=== PATIENT | male | born 1960 | race Caucasian/White ===

== ENCOUNTER 2018-01-06 12:31 | Inpatient (IN) | payer MEDICAID, OTHER ==
[~2018-01-06] VITALS: Ht 170.2 cm; Wt 41.7 kg
[2018-01-06 13:00] VITALS: BP 144/88
[2018-01-06] MEDS ORDERED: ENOXAPARIN 40 MG/0.4 ML (LOVENOX) SYR SC SCH (13:00)
--- NOTE | 2018-01-06 14:02 | Occupational Therapy Eval ---
OT Evaluation-General/PLF Medical Diagnosis Admission Date Jan 06, 2018 at 12:31 Medical Diagnosis: R hemiarthroplasty, R humeral fx Onset Date: Dec 27, 2017 Therapy Diagnosis Therapy Diagnosis: decr self care, weakness, decr funct mob, decr act gwen Height/Weight Height (Feet): 5 Height (Inches): 7.00 Weight (Pounds): 98 Weight (Ounces): 0.4 Precautions Precautions/Isolations: Fall Prevention, Standard Precautions, Pressure Ulcer Weight Bear Status Weight Bearing Restriction: Weight Bearing/Tolerated (R LE), Non Weight Bearing (R UE) Sling for R UE. Posterior hip precautions Medical History Pertinent Medical History: CAD, HTN Additional Medical History L FEDE in May 2017. Mother reported that he had a stroke at that time but he does not think that he has any residual effects (unclear which side was affected ). 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 Chemotherapy. Tachycardia. Malnutrition. Thrush Current History Pt fell, landing on R side. had R FEDE on 12-30-17. Pathological fx R humerus, with no weight bearing. R arm in sling. Reviewed History: Yes Social History Home: Single Level Current Living Status: Other Family (Will stay with mother and stepfather) Entry Into Home: Stairs Without Railing Steps Into Home: 1 ADL-Prior Level of Function Functional [place] Measure 0=Not Assessed/NA 4=Minimal Assistance 1=Total Assistance 5=Supervision or Setup 2=Maximal Assistance 6=Modified [place] 3=Moderate Assistance 7=Complete [place] ADL PLOF Comments Pt reported that he was able to manage his basic ADLs prior to his fall. He lived alone and cared for his pets, his home, worked until he couldn't due to cancer. 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 He said that he "hangs around" with his family and sometimes stays with his mom. He is planning on going to her home after discharge Self Care Functional Cognition Functional Cognition: Able to manage shopping, home care, work, drove DME/Equipment: Shower Hose [employer] Management Keyholder, Tub/Shower DME/Equipment Comments At his mother's house Occupation: disabled OT Current Status Subjective Pt seen in room, up in recliner, agreeable to OT. Pain reported 7/10 in back. Appearance Alert, cooperative Mental Status/Objective Patient Orientation: Person, Place, Situation Current Glasses/Contacts: Yes Hearing Aids: No Dentures/Partials: Yes (upper) Hand Dominance: Right Upper Extremity ROM L UE grossly WFL. R UE grossly WFL elbow, forearm, wrist, hand Upper Extremity Strength R UE grossly 4/5. R UE not tested but field recorder is weaker than L ADL-Treatment ADL-Current Pt education on rehab expectations. He would prefer to wait until tomorrow to bathe and dress. Bathroom set up with BS over toilet because a taller toilet would still be too low to follow hip precautions. He was able to generally verbalize hip precautions, especially since he had them with his FEDE in May. Functional [place] Measure 0=Not Assessed/NA 4=Minimal Assistance 1=Total Assistance 5=Supervision or Setup 2=Maximal Assistance 6=Modified [place] 3=Moderate Assistance 7=Complete IndependenceIRFPAI Quality Coding Scale 6 Independent with activity with or without an assistive device 5 Patient requires set up or clean up by helper. Patient completes activity by themselves 4 Supervision or touching assist (CGA). [place] provide cues , steadying assist 3 The helper provides less than half the effort to complete the activity 2 The helper provides more than half the effort to complete the activity 1 Dependent. The helper does all the effort to complete an activity 7 Patient refused to complete or attempt activity 9 The patient did not perform the activity before the current illness or injury 88 Not attempted due to Medical conditions or safety concerns Education OT Patient Education: Purpose of tx/functional activities, Reviewed precautions , Rehab process, Safety issues Teaching Recipient: Patient, Family Teaching Methods: Discussion Response to Teaching: Verbalize Understanding, Reinforcement Needed OT Short Term Goals Short Term Goals Eating(FIM): 6 Additional Short Term Goals: 1-Demonstrate ADL Tasks, 2-Verbalize Understanding , 3-ImproveStrength/Gianfranco 1=Demonstrate adherence to instructed precautions during ADL tasks. 2=Patient will verbalize/demonstrate understanding of assistive devices/ modifications for ADL. 3=Patient will improve strength/tolerance for activity to enable patient to perform ADL's. OT Ward Maid Goals Ward Maid Goals Time Frame: Jan 27, 2018 Eating (FIM): 6 Eating (QC): 6 Groomin Oral Hygiene (QC): 6 Bathing(FIM): 5 Shower/Bathe Self (QC): 5 Upper Body Dressing(FIM): 6 Upper Body Dressing (QC): 6 Lower Body Dressing(FIM): 5 Lower Body Dressing (QC): 5 On/Off Footwear (QC): 5 Toileting(FIM): 6 Toileting Hygiene (QC): 6 Toilet/Commode Transfer(FIM): 6 Toilet/Commode Transfer (QC): 6 Tub Transfer(FIM): 5 (or shower) Shower Transfer(FIM): 5 Additional Goals: 1-Demonstrate ADL Tasks, 2-Verbalize Understanding, 3- ImproveStrength/Gianfranco 1=Demonstrate adherence to instructed precautions during ADL tasks. 2=Patient will verbalize/demonstrate understanding of assistive devices/ modifications for ADL. 3=Patient will improve strength/tolerance for activity to enable patient to perform ADL's. OT Education/Plan Problem List/Assessment Assessment: Decreased Activ Tolerance, Decreased UE Strength, Dependent Transfers, Impaired Self-Care Skills, Restricted Funct UE ROM Pt would benefit from skilled OT to increase his independence in basic self car to allow him to safely return to his mother's home after discharge, with prison goal to return to his own home. Discharge Recommendations Plan/Recommendations: Continue POC Treatment Plan/Plan of Care Treatment,Training & Education: Yes Patient would benefit from OT for education, treatment and training to promote independence in ADL's, mobility, safety and/or upper extremity function for ADL' s. Plan of Care: ADL Retraining, Functional Mobility, Group Exercise/Act as Ind ( educaiton, exercise, activity tolerance, functional activities, socialization), UE Funct Exercise/Act, UE Neuromus Re-Ed/Coord, OTHER (energy conservation educaton) Treatment Duration: Jan 27, 2018 Frequency: Modified Program (IRF) Estimated Hrs Per Day: 1.5 hours per day Agreement: Yes Rehab Potential: Fair Time/GCodes Start Time: 12:35 Stop Time: 13:00 Total Time Billed (hr/min): 25 Billed Treatment Time visit, evaluation moderate intensity ROSSI KAUFMAN OT Jan 06, 2018 14:02
--- NOTE | 2018-01-06 14:03 | Occupational Ther Daily Note ---
OT Current Status-Daily Note Subjective Pt seen in room, up in recliner, agreeable to OT No pain mentioned Appearance Alert, cooperative Mental Status/Objective Functional [place] Measure 0=Not Assessed/NA 4=Minimal Assistance 1=Total Assistance 5=Supervision or Setup 2=Maximal Assistance 6=Modified [place] 3=Moderate Assistance 7=Complete [place] ADL-Treatment Pt was able to open some containers but needed help opening others. Difficulty reaching food with both hands when food placed on bedside table and cutting food with one hand. Pt given lower folding table which allowed him to reach his food with R hand as well as L and to be more independent with feeding himself. Pt left up in recliner to finish eating, all needs met. He self reported that he eats slowly. Has dentures Functional [place] Measure 0=Not Assessed/NA 4=Minimal Assistance 1=Total Assistance 5=Supervision or Setup 2=Maximal Assistance 6=Modified [place] 3=Moderate Assistance 7=Complete IndependenceIRFPAI Quality Coding Scale 6 Independent with activity with or without an assistive device 5 Patient requires set up or clean up by helper. Patient completes activity by themselves 4 Supervision or touching assist (CGA). [place] provide cues , steadying assist 3 The helper provides less than half the effort to complete the activity 2 The helper provides more than half the effort to complete the activity 1 Dependent. The helper does all the effort to complete an activity 7 Patient refused to complete or attempt activity 9 The patient did not perform the activity before the current illness or injury 88 Not attempted due to Medical conditions or safety concerns Eating (FIM): 5 (setup. Some difficulty cutting food, reaching items. Dentures) Eating (QC): 5 (setup) Education OT Patient Education: Modified ADL techniques, Progress toward Goal/Update tx plan, Purpose of tx/functional activities, Use of adapted equipment Teaching Recipient: Patient, Family Teaching Methods: Demonstration, Discussion Response to Teaching: Verbalize Understanding, Return Demonstration OT Short Term Goals Short Term Goals 1=Demonstrate adherence to instructed precautions during ADL tasks. 2=Patient will verbalize/demonstrate understanding of assistive devices/ modifications for ADL. 3=Patient will improve strength/tolerance for activity to enable patient to perform ADL's. OT Pick Pulling Machine Tender Goals Residential Goals 1=Demonstrate adherence to instructed precautions during ADL tasks. 2=Patient will verbalize/demonstrate understanding of assistive devices/ modifications for ADL. 3=Patient will improve strength/tolerance for activity to enable patient to perform ADL's. OT Education/Plan Discharge Recommendations Plan/Recommendations: Continue POC Treatment Plan/Plan of Care Patient would benefit from OT for education, treatment and training to promote independence in ADL's, mobility, safety and/or upper extremity function for ADL' s. Treatment Duration: Jan 27, 2018 Frequency: Modified Program (IRF) Estimated Hrs Per Day: 1.5 hours per day Agreement: Yes Rehab Potential: Fair Time/GCodes Start Time: 13:20 Stop Time: 13:40 Total Time Billed (hr/min): 20 Billed Treatment Time visit, 20 minutes ADL ROSSI KAUFMAN OT Jan 06, 2018 14:03
[2018-01-06] MEDS ORDERED: OXYC-465 PO (14:33)
[2018-01-06] MEDS ORDERED: MORP-34 PO (14:33)
--- NOTE | 2018-01-06 14:45 | Occupational Ther Daily Note ---
OT Current Status-Daily Note Subjective Pt seen in room, up in recliner, agreeable to OT. No pain mentioned. Pt did report that he is tired and already had therapy this morning. Appearance Alert, cooperative Mental Status/Objective Functional [place] Measure 0=Not Assessed/NA 4=Minimal Assistance 1=Total Assistance 5=Supervision or Setup 2=Maximal Assistance 6=Modified [place] 3=Moderate Assistance 7=Complete [place] ADL-Treatment Pt declined need to toilet and discussed that he used FWW for walking in acute care. He was confident that he could walk to bathroom but did not attempt. Recliner in room replaced with electric lift chair so that he can operate controls and elevate his legs because lever arm is on the right side of standard recliner and he cannot reach it due to R arm in sling and NWB. Pt did 20 reps squeezes and 20 pinches bilat UEs with pink foam paste worker (moderate resistance). Also did 15 reps AROM R wrist, forearm and elbow to prevent contractures. Care transferred to PT. Functional [place] Measure 0=Not Assessed/NA 4=Minimal Assistance 1=Total Assistance 5=Supervision or Setup 2=Maximal Assistance 6=Modified [place] 3=Moderate Assistance 7=Complete IndependenceIRFPAI Quality Coding Scale 6 Independent with activity with or without an assistive device 5 Patient requires set up or clean up by helper. Patient completes activity by themselves 4 Supervision or touching assist (CGA). [place] provide cues , steadying assist 3 The helper provides less than half the effort to complete the activity 2 The helper provides more than half the effort to complete the activity 1 Dependent. The helper does all the effort to complete an activity 7 Patient refused to complete or attempt activity 9 The patient did not perform the activity before the current illness or injury 88 Not attempted due to Medical conditions or safety concerns Education OT Patient Education: Exercise program, Modified ADL techniques, Purpose of tx/ functional activities Teaching Recipient: Patient Teaching Methods: Demonstration, Discussion Response to Teaching: Verbalize Understanding, Return Demonstration, Reinforcement Needed OT Short Term Goals Short Term Goals 1=Demonstrate adherence to instructed precautions during ADL tasks. 2=Patient will verbalize/demonstrate understanding of assistive devices/ modifications for ADL. 3=Patient will improve strength/tolerance for activity to enable patient to perform ADL's. OT Usp Goals Usp Goals 1=Demonstrate adherence to instructed precautions during ADL tasks. 2=Patient will verbalize/demonstrate understanding of assistive devices/ modifications for ADL. 3=Patient will improve strength/tolerance for activity to enable patient to perform ADL's. OT Education/Plan Discharge Recommendations Plan/Recommendations: Continue POC Treatment Plan/Plan of Care Patient would benefit from OT for education, treatment and training to promote independence in ADL's, mobility, safety and/or upper extremity function for ADL' s. Treatment Duration: Jan 27, 2018 Frequency: Modified Program (IRF) Estimated Hrs Per Day: 1.5 hours per day Agreement: Yes Rehab Potential: Fair Time/GCodes Start Time: 14:05 Stop Time: 14:35 Total Time Billed (hr/min): 30 Billed Treatment Time visit, 10 minutes ADL, 20 minutes exercise ROSSI KAUFMAN OT Jan 06, 2018 14:45
--- NOTE | 2018-01-06 15:19 | Physical Therapy Evaluation ---
PT Evaluation-General Medical Diagnosis Admission Date Jan 06, 2018 at 12:31 Medical Diagnosis: right hip and humeral fracture Onset Date: Dec 30, 2017 Therapy Diagnosis Therapy Diagnosis: generalized weakness/debility Height/Weight Height (Feet): 5 Height (Inches): 7.00 Weight (Pounds): 98 Weight (Ounces): 0.4 Precautions Precautions/Isolations: Fall Prevention, Standard Precautions, Pressure Ulcer Weight Bear Status Right Lower Extremity: Right Weight Bearing/Tolerated Left Lower Extremity: Left Weight Bearing/Tolerated Non wt bearing RU LIMB Referral Physician: Darrin Reason for Referral: Evaluation/Treatment Medical History Pertinent Medical History: CAD, HTN, Smoking Additional Medical History metastatic cancer to bone with primary laryngeal mass, lung; increase fatigue, weight loss Current History fall resulting in right hip fracture and humeral fracture (right hip arthroplasty WBAT; right humeral fracture NWB) Reviewed History: Yes Social History Home: Single Level Current Living Status: Alone Prior/Core FIM Prior Level of Function Functional [place] Measure 0=Not Assessed/NA 4=Minimal Assistance 1=Total Assistance 5=Supervision or Setup 2=Maximal Assistance 6=Modified [place] 3=Moderate Assistance 7=Complete IndependenceIRFPAI Quality Coding Scale 6 Independent with activity with or without an assistive device 5 Patient requires set up or clean up by helper. Patient completes activity by themselves 4 Supervision or touching assist (CGA). [place] provide cues , steadying assist 3 The helper provides less than half the effort to complete the activity 2 The helper provides more than half the effort to complete the activity 1 Dependent. The helper does all the effort to complete an activity 7 Patient refused to complete or attempt activity 9 The patient did not perform the activity before the current illness or injury 88 Not attempted due to Medical conditions or safety concerns Bed Mobility: 7 Transfers (B,C,W/C) (FIM): 7 Gait: 7 Prior Equipment Used: lives independently PT Evaluation-Current Subjective Patient reports fatigue and agrees to PT, however, did limit due to pain and fatigue. Pain Numeric Pain Scale: 5-Moderate Pain Location: Right Location Body Site: Hip Pain Description: Acute Objective Patient Orientation: Normal For Age Problem Solving: Fair ROM/Strength ROM Lower Extremities right hip precautions/left LE WFL Strenght Lower Extremities right Le 3-/5 grossly; left LE 3+/5 grossly Integumentary/Posture Integumentary refer to nursing notes Bowel Incontinence: No Bladder Incontinence: No Posture scoliosis Neuromuscular (Tone, Coordination, Reflexes) diminished coordination due to weakness Sensory Vision: Wears Glasses Hearing: Functional Sensation Right Lower Extremit: Impaired Sensation Left Lower Extremity: Impaired Transfers Functional [place] Measure 0=Not Assessed/NA 4=Minimal Assistance 1=Total Assistance 5=Supervision or Setup 2=Maximal Assistance 6=Modified [place] 3=Moderate Assistance 7=Complete IndependenceIRFPAI Quality Coding Scale 6 Independent with activity with or without an assistive device 5 Patient requires set up or clean up by helper. Patient completes activity by themselves 4 Supervision or touching assist (CGA). [place] provide cues , steadying assist 3 The helper provides less than half the effort to complete the activity 2 The helper provides more than half the effort to complete the activity 1 Dependent. The helper does all the effort to complete an activity 7 Patient refused to complete or attempt activity 9 The patient did not perform the activity before the current illness or injury 88 Not attempted due to Medical conditions or safety concerns Transfers (B, C, W/C) (FIM): 3 Scootin Rollin Roll Left to Right (QC): 3 Supine to/from Sit: 3 Sit to/from Stand: 3 bed t/f WC(FIM only if WC use): 3 Sit to Lying (QC): 3 Lying to Sitting/Side of Bed(Q: 3 Sit to Stand (QC): 3 Chair/Fyj-oq-Lhqci Xfer(QC): 3 Car Transfer (QC): 3 Gait Does the Patient Walk?: Yes Mode of Locomotion: Both Anticipated Mode of Locomotion: Walk Gait (FIM): 1 Distance (FIM): 1=up to 49 ft Walk 10 feet (QC): 4 Walk 50 ft with 2 Turns(QC): 88 Walk 150 ft (QC): 88 Walking 10ft/uneven surface-QC: 4 Distance: 20' x 1; 15' x 1 Gait Level of Assist: 4 Gait Persons Needed: 1 Gait Assistive Device: Walker Mauricio Comments/Gait Description flexed knee posture with gait/fatigues very quickly with minimal activity Stairs Stairs (FIM): 1 #of Steps: 1 Level of Assist: 3 1 Step (curb) (QC): 3 4 Steps (QC): 88 Assistive Device: Cane (hemiwalker) 12 Steps (QC): 88 Balance Sitting Static: Fair Sitting Dynamic: Fair Standing Static: Fair Standing Dynamic: Fair Assessment/Needs 57 y.o. male, will benefit from skilled PT to address functional strength and mobility to improve current LOF. Patient is limited due to weakness, metastatic cancer to bone, and mobility. Patient plans to dismiss to his parents home after this recovery phase. Rehab Potential: Guarded Post Rehab Potential-Barriers: metastatic cancer PT Warranty Clerk Goals Fdc Goals PT Fdc Goals Time Frame: Feb 14, 2018 Transfers (B,C,W/C) (FIM): 6 Sit to Lying (QC): 6 Lying-Sitting on Side/Bed(QC): 6 Sit to Stand (QC): 6 Rollin Roll Left to Right (QC): 6 Chair/Jpc-ve-Oviio Xfer(QC): 6 Car Transfer (QC): 6 Does the Patient Walk: Yes Gait (FIM): 6 Gait distance (FIM): 3=150 ft Distance: 150' Walk 10 feet (QC): 6 Walk 10ft-Uneven Surface(QC): 6 Walk 50ft with 2 Turns (QC): 6 Walk 150 ft (QC): 6 Gait Level of Assist: 6 Gait Assistive Device: Walker Mauricio Stairs (FIM): 2 # of Steps: 4 1 Step (curb) (QC): 5 4 Steps (QC): 5 12 Steps (QC): 9 Stairs Level Of Assist: 5 Picking up an Object (QC): 5 PT Plan Problem List Problem List: Activity Tolerance, Functional Strength, Safety, Balance, Gait, Transfer, Bed Mobility Treatment/Plan Treatment Plan: Continue Plan of Care Treatment Plan: Bed Mobility, Concurrent Therapy, Education, Functional Activity Gianfranco, Functional Strength, Group Therapy, Gait, Safety, Therapeutic Exercise, Transfers Treatment Duration: Feb 14, 2018 Frequency: At least 5 of 7 days/Wk (IRF) Estimated Hrs Per Day: 1.5 hours per day Patient and/or Family Agrees t: Yes Safety Risks/Education Patient Education: Safety Issues Teaching Recipient: Patient Teaching Methods: Discussion Response to Teaching: Verbalize Understanding Discharge Recommendations Therapy D/C Recommendations: Home w/ Family Support Time/GCodes Time In: 1430 Time Out: 1515 Total Billed Treatment Time: 45 Total Billed Treatment 1 visit EVHighC 45 min G Codes Necessary: No FAM [place] PT Jan 06, 2018 15:19
--- NOTE | 2018-01-06 15:44 | PM&R Post Admission Assessment ---
Post Admission Physician Asses Date seen by provider: Jan 06, 2018 Time seen by provider: 13:00 The preadmission screen agrees with the post admission assessment that the patient is a good candidate for inpatient rehabilitation. The patient will have a comprehensive program of inpatient rehabilitation with a goal of maximizing level of functional independence prior to discharge home with family. The patient will have PT/OT ninety minutes per day, each discipline, five days a week for 2 weeks forgait, strengthening, conditioning, balance, ADLs, any patient/family/caregiver training as necessary. Speech therapy to do cognitive assessment and treat as indicated. Rehabilitation nursing to assist with bowel, bladder, skin, wound care, medication administration, pain management. T[place] to assist with discharge planning, community reentry. SCD's for DVT prophylaxis. He appears to be well motivated to participate in three hours of therapy a day. He should be able to tolerate three hours of therapy a day from a medical and surgical standpoint. He should benefit from the three hours of therapy a day. He has a reasonable discharge plan, reasonable discharge rehabilitation goals and a supportive family. He has various comorbidities that need to be closely monitored with medications and treatments adjusted on a daily basis as needed. 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 Risks for this patient include: 1. Fall 2. Fracture 3. DVT 4. Pulmonary embolism 5. Wound infection 6. Skin breakdown 7. Contractures 8. Poorly controlled pain 9. Urinary retention 10. UTI 11. Respiratory infection 12. Aspiration 13. Pathologic FRX 14. Thrush 15. Poorly controlled HTN [facility] code 08.2 Etiologic DX Rt Pathologic femur fracture of the femoral neck Estimated Length of Stay: 14 days Prognosis: Rehab prognosis appears good for goal of discharge home with family modified independent to supervision for ADLs and mobility skills. Date Identified: Jan 06, 2018 Time Identified: 13:00 Action Plan to Resolve CSMI: Admission/transfer meds reviewed General: Alert, Oriented X3, Cooperative, No Acute Distress HEENT: Atraumatic, PERRLA, EOMI, Mucous Memb Moist/[place], Other (tongue pink and noncoated) Neck: Supple, No JVD Lungs: Clear to Auscultation Heart: Regular Rate Abdomen: Normal Bowel Sounds Extremities: No Edema Skin: Other (incision healing) Neuro: Other (RT arm in slingRT LE strength 3-/5 Left Lower limb 3+/5 grossly Strength FREDIS LIMB 4/5 Has truck striker strength RT Sensation decresed to touch in feet) Psych/Mental Status: Mental Status NL OSCAR SULLIVAN MD Jan 06, 2018 15:44
--- NOTE | 2018-01-06 16:55 | HISTORY AND PHYSICAL ---
DATE OF SERVICE: 01/06/2018 ADMISSION HISTORY AND PHYSICAL CHIEF COMPLAINT: Difficulty with walking. 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 in [place], [place]. He has been using a cane or a walker for ambulation prior to this as he had general debilitation from chemotherapy. He had a recent history of fall with right arm fractures, seen by Dr. Agarwal, recommended conservative management with sling. The patient was found to have a pathologic fracture of the left hip and had total hip arthroplasty with Dr. Davis. Orthopedics contacted this physician and discussed transfer with the patient. The patient has been followed by Dr. Rowan, medical oncology for weekly Taxol chemotherapy. The patient underwent a right hip hemiarthroplasty on 12/30. The patient is to have followup palliative radiation therapy and chemotherapy is on hold for the next 3 to 4 weeks. The patient has declined hospice care and requests to be maintained as full code. This was discussed bedside with Dr. Clifford and the patient. The patient is on Mycostatin for oral thrush, but his tongue is non-coated at this point and is just red. The patient is on hydrocodone/APAP p.r.n. for breakthrough pain and MS Contin for sustained pain relief. He is on Lovenox subcu for DVT prophylaxis, Coreg with a history of hypertension and continues on Mycostatin swish and swallow for completion of treatment of oral thrush. Currently, he is set up for toileting utilizing a bedside commode. He is mod assist for transfers, min assist for gait with a jazlyn-walker. He fatigues easily. He has limited endurance. PAST MEDICAL HISTORY: Tonsillar cancer with metastases to bone and lungs, falls, coronary artery disease, hypertension, tobaccoism. PAST SURGICAL HISTORY: As per above. ALLERGIES: No known medication allergies. FAMILY HISTORY: Noncontributory. SOCIAL HISTORY: He lives in a single level home in [place], [place] with his mother and stepfather. He is retired/disabled from [employer]. He states that his cancer was diagnosed in April. REVIEW OF SYSTEMS: A 10-point review of systems is significant for shoulder and hip pain, some shortness of breath, limited endurance. He reports no bowel or bladder incontinence. He wears glasses. Some numbness in his feet. MEDICATIONS: Coreg 6.25 mg p.o. b.i.d., MiraLax 17 grams p.o. at bedtime, MS Contin 30 mg p.o. q.12 hours, Mycostatin 5 mL p.o. q.6 hours, hydrocodone/APAP 10 one tablet p.o. q.4 hours p.r.n. moderate pain, and Lovenox 40 mg subcu daily. PHYSICAL EXAMINATION: GENERAL: Significant for a thin, somewhat cachectic male appearing somewhat older than his stated age, alert and oriented, sitting in chair in no acute distress. VITAL SIGNS: He is afebrile, pulse is 101, respirations 18, blood pressure 144/88, O2 sat 96% on room air. HEENT: Vision, speech and hearing grossly intact. No oral lesion is noted. Tongue is red. No whitish plaques noted. NECK: Supple without mass. HEART: Regular rhythm. CHEST: Clear. ABDOMEN: Soft, nontender, bowel sounds present. EXTREMITIES: No lower leg edema, no calf tenderness. MUSCULOSKELETAL: He has functional active range of motion in all 4 limbs. NEUROLOGIC: Sensation, decreased sensation to light touch in feet. Cognition is grossly intact. Strength, left upper limb is 4/5, right upper limb is in a sling. He is able to curtain framer on the right, but curtain framer strength is weaker than the left. He is right hand dominant. Strength, right lower extremity 3-/5 grossly, left lower extremity 3+/5. He has diminished coordination due to weakness. IMPRESSION: 1. Ambulatory dysfunction secondary to right pathologic proximal femur fracture of the femoral neck, status post right hip hemiarthroplasty on 12/30/2017, weightbearing as tolerated. 2. Metastatic tonsillar cancer with extensive involvement to lungs and bone, undergoing chemotherapy, on hold at this point. 3. Fall with right humerus fracture, managed with sling, to have palliative radiation therapy at a later time, right proximal humerus fracture to be specific. 4. Prior left hip hemiarthroplasty, pathologic in nature, underwent total hip replacement with Dr. Davis. 5. Hypertension, controlled with medication. 6. Mild tachycardia. 7. Severe protein-calorie malnutrition, on supplement. 8. Pancytopenia. 9. HLD. 10. Hyponatremia. 11. Oral thrush, under treatment, appears improved. 12. Remote history of myocardial infarction with coronary artery disease. 13. Tobaccoism, currently abstaining. PLAN: The patient will have a comprehensive program of inpatient rehabilitation with goal of maximizing level of functional independence prior to discharge home with his mother and stepfather. The patient will have PT, OT 90 minutes per day each discipline 5 days a week for 2 weeks with above goals in mind. Speech therapy to do cognitive assessment and treat as indicated. Please see post-admission physician evaluation, which is a separate document for details of plan of care. Rehabilitation nursing to assist with bowel, bladder, skin, wound care, medication administration, and pain management. technical services specialist to assist with discharge planning, community reentry. Consult Dr. [place] to help assist with the management of hypertension and tachycardia with history of coronary artery disease and SC. Follow up with his medical oncologist and orthopedist upon discharge. Case was discussed with Dr. Clifford by referring orthopedist today by phone. Routine admission labs. Continue Lovenox subcu for DVT prophylaxis. Continue current medications for pain management as listed above. His BMI is 15.4. Consider dietary consult. Order nutritional supplement. ESTIMATED LENGTH OF STAY: Two weeks. PROGNOSIS: Rehab prognosis appears good for goal of discharging home with his family, modified independent to supervision for ADLs and mobility skills taking into consideration his nonweightbearing right upper limb with right arm in sling. DIET: Regular. CODE STATUS: The patient request full code. Job ID: [id number] DocumentID: [id number] Dictated Date: 01/06/2018 16:05:05 Skein Bleacher Date: 01/06/2018 16:55:20 Dictated By: OSCAR CLIFFORD MD [facility]
[2018-01-06 17:42] VITALS: BP 162/89
[2018-01-06] MEDS: NYSTATIN ORAL SUSP 5 ML UDC PO SCH ×2 (17:42→23:28)
[2018-01-06] MEDS: HYDROcodone/APAP 10 MG/325 MG (LORTAB) TAB PO PRN (17:44)
[2018-01-06] MEDS: CARVEDILOL 6.25 MG (COREG) TAB PO SCH (21:10)
[2018-01-06] MEDS: morphine ER 30 MG (MS CONTIN) TAB PO SCH (21:11)
[2018-01-06] MEDS: POLYETHYLENE GLYCOL 17 GM (MIRALAX) PACK PO SCH (21:11)
[2018-01-07 05:50] VITALS: BP 143/91
[2018-01-07 06:19] LABS: BASOPHILS % (AUTO) 0 % (0-10); EOSINOPHILS % (AUTO) 0 % (0-10); HEMATOCRIT 26 % (40-54); HEMOGLOBIN 8.9 G/DL (13.3-17.7); LYMPHOCYTES # (AUTO) 1.2 X 10^3 (1.0-4.0); LYMPHOCYTES % (AUTO) 15 % (12-44); MEAN CORPUSCULAR HEMOGLOBIN 30 PG (25-34); MEAN CORPUSCULAR HGB CONC 34 G/DL (32-36); MEAN CORPUSCULAR VOLUME 87 FL (80-99); MEAN PLATELET VOLUME 7.8 FL (7.4-10.4); MONOCYTES # (AUTO) 1.2 X 10^3 (0.0-1.0); MONOCYTES % (AUTO) 15 % (0-12); NEUTROPHILS # (AUTO) 5.8 X 10^3 (1.8-7.8); NEUTROPHILS % (AUTO) 70 % (42-75); PLATELET COUNT 399 10^3/uL (130-400); RED BLOOD COUNT 2.97 10^6/uL (4.35-5.85); WHITE BLOOD COUNT 8.3 10^3/uL (4.3-11.0)
[2018-01-07] MEDS: HYDROcodone/APAP 10 MG/325 MG (LORTAB) TAB PO PRN ×2 (06:20→20:05)
[2018-01-07] MEDS: NYSTATIN ORAL SUSP 5 ML UDC PO SCH ×3 (06:20→17:41)
[2018-01-07 06:38] LABS: ALANINE AMINOTRANSFERASE 16 U/L (0-55); ALBUMIN 2.9 GM/DL (3.2-4.5); ALKALINE PHOSPHATASE 94 U/L (40-136); BILIRUBIN,TOTAL 0.5 MG/DL (0.1-1.0); BUN/CREATININE RATIO 18; CALCIUM 9.1 MG/DL (8.5-10.1); CARBON DIOXIDE 28 MMOL/L (21-32); CHLORIDE 95 MMOL/L (98-107); CREATININE SERUM 0.56 MG/DL (0.60-1.30); GFR ESTIMATED > 60; GLUCOSE 102 MG/DL (70-105); POTASSIUM 3.8 MMOL/L (3.6-5.0); SODIUM 133 MMOL/L (135-145); TOTAL PROTEIN 5.6 GM/DL (6.4-8.2)
--- NOTE | 2018-01-07 07:32 | PM & R (SOAP) Progress Note ---
Subjective This was a face to face visit with the patient. Date Seen by Provider: Jan 07, 2018 Time Seen by Provider: 07:25 Subjective/Events-last exam Patient was seen in his room this AM Patient Mod assist for transfers. Patient adjusting well to unit Labs noted Pain control adequate Review of Systems Musculoskeletal: arm pain, leg pain Objective Physician Exam Last Set of Vital Signs Vital Signs Date Time Temp Pulse Resp B/P (MAP) Pulse Ox O2 Delivery O2 Flow Rate FiO2 01/07/18 05:50 98.0 97 17 143/91 (108) 93 Room Air Capillary Refill : Less Than 3 Seconds I&O Intake and Output 01/07/18 00:00 Intake Total 240 ml Output Total 150 ml Balance 90 ml Intake Oral 240 ml Output Urine Total 150 ml Daily Weight Change Unsure General: Alert, Oriented X3, Cooperative, No Acute Distress HEENT: Atraumatic, PERRLA, EOMI, Mucous Memb Moist/[place], Other (tongue pink and noncoated) Neck: Supple, No JVD Lungs: Clear to Auscultation Heart: Regular Rate Abdomen: Normal Bowel Sounds Extremities: No Edema Skin: Other (incision healing) Neuro: Other (RT arm in slingRT LE strength 3-/5 Left Lower limb 3+/5 grossly Strength FREDIS LIMB 4/5 Has clerk general strength RT Sensation decresed to touch in feet) Psych/Mental Status: Mental Status NL Results Lab Data Laboratory Tests 01/07/18 06:05: White Blood Count 8.3, Red Blood Count 2.97L, Hemoglobin 8.9L, Hematocrit 26L, Mean Corpuscular Volume 87, Mean Corpuscular Hemoglobin 30, Mean Corpuscular Hemoglobin Concent 34, Red Cell Distribution Width 14.0, Platelet Count 399, Mean Platelet Volume 7.8, Neutrophils (%) (Auto) 70, Lymphocytes (%) (Auto) 15, Monocytes (%) (Auto) 15H, Eosinophils (%) (Auto) 0, Basophils (%) (Auto) 0, Neutrophils # (Auto) 5.8, Lymphocytes # (Auto) 1.2, Monocytes # (Auto) 1.2H, Eosinophils # (Auto) 0.0, Basophils # (Auto) 0.0, Sodium Level 133L, Potassium Level 3.8, Chloride Level 95L, Carbon Dioxide Level 28, Anion Gap 10, Blood Urea Nitrogen 10, Creatinine 0.56L, Estimat Glomerular Filtration Rate > 60, BUN /Creatinine Ratio 18, Glucose Level 102, Calcium Level 9.1, Corrected Calcium 10.0, Total Bilirubin 0.5, Aspartate Amino Transf (AST/SGOT) 36H, Alanine Aminotransferase (ALT/SGPT) 16, Alkaline Phosphatase 94, Total Protein 5.6L, Albumin 2.9L Assessment/Plan Assessment and Plan RT Path fracture prox femur s/p RT hip hemiarthroplasty 12-30-17 Metastatic tonsillar ca with extensive involvement to lungs and bone Postop anemia Hyponatremia Prior left HIP hemiarthroplasty HTN Tachycardia Severe protein calorie malnutrition on supplement Pancytopenia improving HLD Oral thrush treated recent HX of ME with CAD Tobaccoism abstaining Plan Continue PT/OT Team Conference later today See report for full functional update and POC and ELOS Co-Morbidities that are continuing to impact the rehab process: (include details ) OSCAR SULLIVAN MD Jan 07, 2018 07:32
--- NOTE | 2018-01-07 08:37 | Consultation ---
History of Present Illness History of Present Illness Patient Consulted On(shad/time) 01/07/18 08:32 Time Seen by Provider: 08:32 History of Present Illness Patient is an old looking 57-year-old with metastatic tonsillar cancer involving the lung and bones. Patient had right hip pain and had a hip fracture and had surgery in [facility]. Patient also has a right arm fracture with conservative treatment area Patient had pathological fracture left hip and had a total hip arthroplasty. Patient has a history of falls, coronary artery disease, hypertension, and previous tobaccoism. Patient lives in [place] Allergies and Home Medications Allergies Coded Allergies: No Known Drug Allergies (Unverified , 01/06/18) Home Medications Morphine Sulfate 30 Mg Tablet.er, 30 MG PO Q12H, (Reported) Oxycodone HCl/Acetaminophen 1 Each Tablet, 1 TAB PO QID PRN for PAIN-MODERATE, ( Reported) Patient Home Medication List Home Medication List Reviewed: Yes Past Vfhoewf-Sxlajq-Kgcekp Hx Patient Social History Alcohol Use: Past History Recreational Drug Use: No Smoking Status: Former Smoker Type Used: Cigarettes Former Smoker, Quit: May 09, 2017 Recent Foreign Travel: No Contact w/Someone Who Travel: No Recent Infectious Disease Expo: No Recent Hopitalizations: Yes Immunizations Up To Date Date of Influenza Vaccine: Dec 22, 2017 Seasonal Allergies Seasonal Allergies: No Past Medical History Surgeries: Yes Orthopedic Respiratory: Yes (lung mets) COPD Cardiac: Yes Neurological: Yes Sexually Transmitted Disease: No HIV/AIDS: No Genitourinary: No Gastrointestinal: No Musculoskeletal: Yes Fractures Endocrine: No HEENT: Yes (poor eye sight requires glasses) Loss of Vision: Bilateral Hearing Impairment: Denies 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) Bone, Lung Did You Recieve Any Treatments: Yes What Type of Treatment Did You: Chemotherapy, Radiation Psychosocial: No Integumentary: No Blood Disorders: No Adverse Reaction/Blood Tranf: No Review of Systems-General Constitutional: weakness, other (Plan) EENTM: no symptoms reported Respiratory: other (Decreased breath sounds) Cardiovascular: no symptoms reported Gastrointestinal: no symptoms reported Genitourinary: no symptoms reported Physical Exam-General Problems Physical Exam Vital Signs Vital Signs - First Documented 01/06/18 13:00 Temp 98.1 Pulse 101 Resp 18 B/P (MAP) 144/88 (106) Pulse Ox 96 O2 Delivery Room Air Capillary Refill : Less Than 3 Seconds General Appearance: no apparent distress, thin Eyes: Bilateral Eye Normal Inspection HEENT: normal ENT inspection Neck: non-tender, full range of motion Respiratory: no respiratory distress, no accessory muscle use, decreased breath sounds Cardiovascular: regular rate, rhythm, no murmur Gastrointestinal: non tender, soft Assessment/Plan Assessment/Plan Admission Diagnosis/Plan Hip fracture Right arm fracture. Metastatic tonsillar cancer. Metastasis to bone and lung. COPD. Previous smoker. Previous drinker Admission Status: Inpatient Order (span 2 midnights) Clinical Quality Measures DVT/VTE Risk/Contraindication: Risk Factor Score Per Nursin RFS Level Per Nursing on Admit: 4+=Very High OBED CHAU DO Jan 07, 2018 08:37
[2018-01-07] MEDS: CARVEDILOL 6.25 MG (COREG) TAB PO SCH ×2 (09:32→20:06)
[2018-01-07] MEDS: morphine ER 30 MG (MS CONTIN) TAB PO SCH ×2 (09:32→20:05)
--- NOTE | 2018-01-07 09:58 | Physical Therapy Daily Note ---
PT Daily Note-Current Subjective Pt. rates his pain at 8/10 in right hip and also c/o he feels weak and SOB. Pain Numeric Pain Scale: 8 Location: Right Location Body Site: Hip Pain Description: Ache, Stabbing Appearance some difficulty communicating, states his dentures are loose Mental Status Patient Orientation: Normal For Age Attachments: Other-See Comments (sling RUE) Transfers Functional [place] Measure 0=Not Assessed/NA 4=Minimal Assistance 1=Total Assistance 5=Supervision or Setup 2=Maximal Assistance 6=Modified [place] 3=Moderate Assistance 7=Complete IndependenceIRFPAI Quality Coding Scale 6 Independent with activity with or without an assistive device 5 Patient requires set up or clean up by helper. Patient completes activity by themselves 4 Supervision or touching assist (CGA). [place] provide cues , steadying assist 3 The helper provides less than half the effort to complete the activity 2 The helper provides more than half the effort to complete the activity 1 Dependent. The helper does all the effort to complete an activity 7 Patient refused to complete or attempt activity 9 The patient did not perform the activity before the current illness or injury 88 Not attempted due to Medical conditions or safety concerns Transfers (B, C, W/C) (FIM): 3 Scootin Rollin Supine to/from Sit: 4 Sit to/from Stand: 4 Bed to/from Chair: 3 pt. has increased pain and some dyspnea with all activity. Needs rest break with TRFs. practiced many TRFs towards left in to w/c and bed, used mauricio walker to TRF toward right. Weight Bearing Right Lower Extremity: Right Weight Bearing/Tolerated Left Lower Extremity: Left Weight Bearing/Tolerated Non wt bearing RU LIMB Gait Training Does the Patient Walk?: Yes Gait (FIM): 1 Distance (FIM): 1=up to 49 ft (0ftx2) Gait Level of Assist: 3 Gait Persons Needed: 1 Gait Assistive Device: Walker Mauricio pt. states he doesnt like the mauricio walker, reallly liked using a FWW but understands he cant wt bear on RUE but "why cant I put my forearm on the walker "? Wheelchair Training Does the Pt Use a Wheelchair?: Yes Wheelchair (FIM): 4 Wheelchair Distance: 3=150 ft (x2) Wheelchair Level of Assist: 4 Type of Wheelchair: Manual uses feet to manage mostly and LUE as well, backs and turns pretty well and applies brakes indep bilat Exercises Supine Ex: Ankle pumps, Rolling, Glut sets, Heel Slides, Scooting, Hip abd/add Supine Reps: 12 Seated Therapy Exercises: Ankle pumps, Sit to stand, Long arc quads Seated Reps: 10 Assessment Current Status: Good Progress pt. very limited, has pain and fatigue and dyspnea with gait and TRFs and needs rest PT Correctional Officer Captain Goals Correctional Officer Captain Goals PT Mcfp Goals Time Frame: Feb 14, 2018 Transfers (B,C,W/C) (FIM): 6 Sit to Lying (QC): 6 Lying-Sitting on Side/Bed(QC): 6 Sit to Stand (QC): 6 Rollin Roll Left to Right (QC): 6 Chair/Yca-ns-Wszkm Xfer(QC): 6 Car Transfer (QC): 6 Does the Patient Walk: Yes Gait (FIM): 6 Gait distance (FIM): 3=150 ft Distance: 150' Walk 10 feet (QC): 6 Walk 10ft-Uneven Surface(QC): 6 Walk 50ft with 2 Turns (QC): 6 Walk 150 ft (QC): 6 Gait Level of Assist: 6 Gait Assistive Device: Walker Mauricio Stairs (FIM): 2 # of Steps: 4 1 Step (curb) (QC): 5 4 Steps (QC): 5 12 Steps (QC): 9 Stairs Level Of Assist: 5 Picking up an Object (QC): 5 PT Plan Treatment/Plan Treatment Plan: Continue Plan of Care Treatment Plan: Bed Mobility, Concurrent Therapy, Education, Functional Activity Gianfranco, Functional Strength, Group Therapy, Gait, Safety, Therapeutic Exercise, Transfers Treatment Duration: Feb 14, 2018 Frequency: At least 5 of 7 days/Wk (IRF) Estimated Hrs Per Day: 1.5 hours per day Patient and/or Family Agrees t: Yes Safety Risks/Education Patient Education: Gait Training, Transfer Techniques, Correct Positioning, W/ C Management, Disease Process, Safety Issues Teaching Recipient: Patient Teaching Methods: Demonstration, Discussion Response to Teaching: Verbalize Understanding, Return Demonstration, Reinforcement Needed Time/GCodes Time In: 900 Time Out: 1000 Total Billed Treatment Time: 60 Total Billed Treatment 1,w/c20m,GT10m,FA20m,EX10m G Codes Necessary: BRYAN Malcolm COURT ADVOCATE Jan 07, 2018 09:58
--- NOTE | 2018-01-07 11:35 | Occupational Ther Daily Note ---
OT Current Status-Daily Note Subjective t seen in room, up in recliner, agreeable to OT. Pain across low back but not rated. Appearance Alert, cooperative Mental Status/Objective Functional [place] Measure 0=Not Assessed/NA 4=Minimal Assistance 1=Total Assistance 5=Supervision or Setup 2=Maximal Assistance 6=Modified [place] 3=Moderate Assistance 7=Complete [place] ADL-Treatment Pt reported that he has help to transfer to w/c to use urinal sitting up, with help to empty it. Has not had BM and reported that he has one generally every 3 days. Pt washed face and hands and brushed teeth while sitting in recliner, setup. Able to get button shirt off with min assist and don t-shirt with min assist, with pt education for modified technique for donning and doffing. Able to get pants down to knees but unable to get them off feet. Unable to doff/don slipper socks. All limited by hip precautions. Pt educ use of dressing stick to doff pants. Pt washed arms, chest, abdomen, kb, bottom and upper legs, sponge bath with setup. Unable to reach below knees to wash due to hip precautions. Pt unable to get pants over feet but pt educ on use of dressing stick to don pants. Pt stood min assist and needed a little help to pull pants up over hip on R side. Pt walked min assist but with lots of education on use and placement of jazlyn walker. Cues for L arm placement for sitting at EOB. He was able to get both legs into bed. Pt has edema in feet but very thin legs that would not fit TEDs. Checked with nursing and edema and DVT prevention mgmt included elevation , SCDs. Pt left up in bed, pillow supporting R upper arm, sling on. Pt is unable to take sling off/put it on himself. Functional [place] Measure 0=Not Assessed/NA 4=Minimal Assistance 1=Total Assistance 5=Supervision or Setup 2=Maximal Assistance 6=Modified [place] 3=Moderate Assistance 7=Complete IndependenceIRFPAI Quality Coding Scale 6 Independent with activity with or without an assistive device 5 Patient requires set up or clean up by helper. Patient completes activity by themselves 4 Supervision or touching assist (CGA). [place] provide cues , steadying assist 3 The helper provides less than half the effort to complete the activity 2 The helper provides more than half the effort to complete the activity 1 Dependent. The helper does all the effort to complete an activity 7 Patient refused to complete or attempt activity 9 The patient did not perform the activity before the current illness or injury 88 Not attempted due to Medical conditions or safety concerns Grooming (FIM): 5 (setup) Oral Hygiene (QC): 5 Bathing (FIM): 4 (Washed and dried all parts except lower legs, sponge bath, with setup.) Shower/Bathe Self (QC): 3 (pt does 80% sponge bath) Upper Body (FIM): 4 (Min assist to doff shirt with buttons and min assist to don t shirt. pt educ mod technique) Upper Body Dressing (QC): 3 Lower Body Dressing (FIM): 2 (Pt able to get pants off over hips but not off over feet. Unable to get pants on over feet, can pull them up to thighs, min assist sit to stand and a little help needed to get pants up over R hip. Unable to get slipper socks off and on. ) Lower Body Dressing (QC): 2 On/Off Footwear (QC): 1 (dependant) Toileting (FIM): 3 (Per nursing) Toileting Hygiene (QC): 3 (per nursing) Toilet/Commode Transfer (FIM): 3 (per nursing) Toilet Transfer (QC): 3 (per nursing) Education OT Patient Education: Modified ADL techniques, Progress toward Goal/Update tx plan, Purpose of tx/functional activities, Transfer techniques, Use of adapted equipment Teaching Recipient: Patient Teaching Methods: Demonstration, Discussion Response to Teaching: Verbalize Understanding, Return Demonstration, Reinforcement Needed OT Short Term Goals Short Term Goals Eating(FIM): 6 Additional Short Term Goals: 1-Demonstrate ADL Tasks, 2-Verbalize Understanding , 3-ImproveStrength/Gianfranco 1=Demonstrate adherence to instructed precautions during ADL tasks. 2=Patient will verbalize/demonstrate understanding of assistive devices/ modifications for ADL. 3=Patient will improve strength/tolerance for activity to enable patient to perform ADL's. OT Mold Repairer Goals Mold Repairer Goals Time Frame: Jan 27, 2018 Eating (FIM): 6 Eating (QC): 6 Groomin Oral Hygiene (QC): 6 Bathing(FIM): 5 Shower/Bathe Self (QC): 5 Upper Body Dressing(FIM): 6 Upper Body Dressing (QC): 6 Lower Body Dressing(FIM): 5 Lower Body Dressing (QC): 5 On/Off Footwear (QC): 5 Toileting(FIM): 6 Toileting Hygiene (QC): 6 Toilet/Commode Transfer(FIM): 6 Toilet/Commode Transfer (QC): 6 Tub Transfer(FIM): 5 (or shower) Shower Transfer(FIM): 5 Additional Goals: 1-Demonstrate ADL Tasks, 2-Verbalize Understanding, 3- ImproveStrength/Gianfranco 1=Demonstrate adherence to instructed precautions during ADL tasks. 2=Patient will verbalize/demonstrate understanding of assistive devices/ modifications for ADL. 3=Patient will improve strength/tolerance for activity to enable patient to perform ADL's. OT Education/Plan Problem List/Assessment Pt would benefit from skilled OT to increase his independence in basic self car to allow him to safely return to his mother's home after discharge, with senior living goal to return to his own home. Discharge Recommendations Plan/Recommendations: Continue POC Treatment Plan/Plan of Care Patient would benefit from OT for education, treatment and training to promote independence in ADL's, mobility, safety and/or upper extremity function for ADL' s. Plan of Care: ADL Retraining, Functional Mobility, Group Exercise/Act as Ind ( educaiton, exercise, activity tolerance, functional activities, socialization), UE Funct Exercise/Act, UE Neuromus Re-Ed/Coord, OTHER (energy conservation educaton) Treatment Duration: Jan 27, 2018 Frequency: Modified Program (IRF) Estimated Hrs Per Day: 1.5 hours per day Agreement: Yes Rehab Potential: Fair Time/GCodes Start Time: 10:00 Stop Time: 11:05 Total Time Billed (hr/min): 65 Billed Treatment Time visit, 65 minutes ADL ROSSI KAUFMAN OT Jan 07, 2018 11:34
[2018-01-07] MEDS: ENOXAPARIN 30 MG/0.3 ML (LOVENOX) SYR SC SCH (13:06)
--- NOTE | 2018-01-07 15:03 | ST Cognitive Linguistic Eval ---
Speech Evaluation-General Medical Diagnosis R hemiarthroplasty, R humeral fx Onset Date: Dec 27, 2017 Therapy Diagnosis Therapy Diagnosis: Cognition Precautions Precautions/Isolations: Fall Prevention, Standard Precautions, Pressure Ulcer Referral Referring Physician: Dr. Clifford Reason for Referral: Evaluation/Treatment Medical History Pertinent Medical History: CAD, HTN Hx of cancer x 3 Reviewed History: Yes Social History Current Living Status: Other Family (Will stay with mother and stepfather) Speech PLF-Current Status Prior Level of Function Pt lives with his parents for now. He does own a home. Subjective Pt pleasant and cooperative. Pain Numeric Pain Scale: 0-No Pain Language Eval: Auditory Comprehends Simple Yes/No Ques: Functional Follows 1-Step Commands: Functional Follows Complex Directions: Functional Follows General Conversations: Functional Language Eval: Verbal Language Completes Spontaneous Greeting: Functional Produces Auto, Serial Info: Functional Word Finding: Functional Requests Basic Needs: Functional States Basic Personal Info: Functional Expresses Complex Ideas: Functional Language Evaluation: Reading NT Cognitive Patient Orientation pt oriented x 3 Objective Cognitive Domain Attention: WNL Memory: Moderate Problem Solving: Functional Objective Results [facility] Cognitive/Communication Assessment was administered to determine cognitive/linguistic functioning. Results are as follows: Orientation - Pt oriented x 3 Memory - 3 word recall was 3/3 correct for immediate, delayed and remote delay. Problem Solving - Simple, pt was 4/4 correct; Abstract/Complex was 1.5/2 correct and Comparisons was 3/4 correct. Speech/language - Pt was mildly dysarthric due to the cancer and treatment. Oral Motor/Speech Production Mild dysarthria Pt was 90 to 95% intelligible. Impression Functional cognitive-linguistic skills. Communication/Social Cognition Comprehension: 7 Expression: 6 Social Interaction: 7 Problem Solvin Memory: 7 Speech Patient Assess Expression of Ideas/Wants: Expression (4) Understanding Verbal Content: Understands (4) Brief Interview-Mental Status: Yes Temporal Orientation: Year: Correct (3) Temporal Orientation: Month: Accurate within 5 days(2) Temporal Orientation: Day: Correct (1) Recall : Wear to say "Sock": Yes, no cue required (2) Recall : Color: Yes, no cue required (2) Recall : Bed: Yes, no cue required (2) Speech Short Term Goals Short Term Goals Short Term Goals no goals established as skilled ST not indicated Speech Custodial Goals Garment Looper Goals No goals established as skilled ST not indicated. Speech-Plan Patient/Family Goals Patient/Family Goals: to return to his parent's house and then to his own house Treatment Plan Speech Therapy Treatment Plan: Discontinue ST skilled ST not indicated Frequency: Modified Program (IRF) Estimated Hrs Per Day: Other (0) Rehab Potential: Fair Pt/Family Agrees to Plan: Yes Safety Risks/Education Teaching Recipient: Patient Teaching Methods: Discussion Response to Teaching: Verbalize Understanding Time Speech Therapy Time In: 14:30 Speech Therapy Time Out: 15:05 Total Billed Time: 35 Billed Treatment Time 1, RICARDO Flores Jan 07, 2018 15:03
--- NOTE | 2018-01-07 15:17 | Therapy Group Daily Note ---
Therapy Daily Group Note Patient Education Topic Other List Below (Education over Memory & Memory Strategies) Exercises LE Seated Exercise, UE Exercise Other/Notes Pt was propelled to PT/OT Group in [facility] . Group consisted of Introduction (Name , Where You are From & Most Ornery Trick You have Ever Played), Socialization, Seated UE/LE Ex, ARU Description, Education over Memory & Memory Strategies. Pt participated by giving an individualized example of a trick pt has played as well as an example of a strategy they use to help remember important items. Pt also participated in Seated Ex and was able to toss a terrell bag when trying to participate in Memory Activity. Pt returned to room to rest at end of Group. Start Time: 13:00 Stop Time: 14:20 Total Billed Treatment Time: 80 Total Billed Treatment 1, GRP SUKHAJAY ROLLER VARNISHER Jan 07, 2018 15:17
[2018-01-07 17:37] VITALS: BP 150/89
[2018-01-07] MEDS: meTOprolol TARTRATE 25 MG (LOPRESSOR) TABLET PO SCH (20:05)
[2018-01-07] MEDS: POLYETHYLENE GLYCOL 17 GM (MIRALAX) PACK PO SCH (22:01)
[2018-01-08] MEDS: NYSTATIN ORAL SUSP 5 ML UDC PO SCH ×4 (01:03→17:29)
[2018-01-08 05:05] VITALS: BP 135/85
[2018-01-08] MEDS: HYDROcodone/APAP 10 MG/325 MG (LORTAB) TAB PO PRN ×2 (06:35→14:42)
--- NOTE | 2018-01-08 07:58 | Progress Note (SOAP) ---
Subjective Time Seen by a Provider: 07:56 Subjective/Events-last exam Patient had a good workout yesterday. Patient voices no complaints today. Patient states he's eating well. Objective Exam Vital Signs Date Time Temp Pulse Resp B/P (MAP) Pulse Ox O2 Delivery O2 Flow Rate FiO2 01/08/18 05:05 97.9 93 18 135/85 (102) 94 Room Air 01/07/18 20:40 Room Air 01/07/18 17:37 98.8 96 18 150/89 (109) 96 Room Air 01/07/18 09:00 Room Air I & O 01/08/18 07:00 Intake Total 580 ml Output Total 1025 ml Balance -445 ml Capillary Refill : Less Than 3 Seconds General Appearance: No Apparent Distress, Thin HEENT: Normal ENT Inspection Neck: Full Range of Motion Respiratory: No Accessory Muscle Use, No Respiratory Distress, Decreased Breath Sounds Cardiovascular: Regular Rate, Rhythm, No Murmur Gastrointestinal: non tender, soft Assessment/Plan Assessment/Plan Assess & Plan/Chief Complaint Hip fracture Right arm fracture. Metastatic tonsillar cancer. Metastasis to bone and lung. COPD. Previous smoker. Previous drinker. . 01/08/18. Right hip fracture. Right arm fracture. Metastatic tonsillar cancer. Metastasis to bone and leg. COPD. Previous smoker and drinker. Patient states he had a good workout yesterday. Patient states he's eating well. Clinical Quality Measures DVT/VTE Risk/Contraindication: Risk Factor Score Per Nursin RFS Level Per Nursing on Admit: 4+=Very High OBED CHAU DO Jan 08, 2018 07:58
[2018-01-08] MEDS: CARVEDILOL 6.25 MG (COREG) TAB PO SCH ×2 (08:15→20:21)
[2018-01-08] MEDS: morphine ER 30 MG (MS CONTIN) TAB PO SCH ×2 (08:16→20:21)
[2018-01-08] MEDS: meTOprolol TARTRATE 25 MG (LOPRESSOR) TABLET PO SCH ×2 (08:16→20:21)
--- NOTE | 2018-01-08 10:59 | Physical Therapy Daily Note ---
PT Daily Note-Current Subjective Patient in wheelchair in therapy gym pre tx, agrees to PT, has pain of 8/10 in right hip and arm and back. Appearance Patient in recliner post tx with nurse call, phone, tray, all needs met. Mental Status Patient Orientation: Person, Place, Situation arm sling Transfers Functional Wallace Measure 0=Not Assessed/NA 4=Minimal Assistance 1=Total Assistance 5=Supervision or Setup 2=Maximal Assistance 6=Modified [place] 3=Moderate Assistance 7=Complete IndependenceIRFPAI Quality Coding Scale 6 Independent with activity with or without an assistive device 5 Patient requires set up or clean up by helper. Patient completes activity by themselves 4 Supervision or touching assist (CGA). Sherrill provide cues , steadying assist 3 The helper provides less than half the effort to complete the activity 2 The helper provides more than half the effort to complete the activity 1 Dependent. The helper does all the effort to complete an activity 7 Patient refused to complete or attempt activity 9 The patient did not perform the activity before the current illness or injury 88 Not attempted due to Medical conditions or safety concerns Transfers (B, C, W/C) (FIM): 4 Sit to/from Stand: 4 Bed to/from Chair: 4 CGA, cues for hand placement and positioning Weight Bearing Right Lower Extremity: Right Weight Bearing/Tolerated Left Lower Extremity: Left Weight Bearing/Tolerated Non wt bearing RU LIMB Gait Training Gait (FIM): 1 Distance: 20'x5 Gait Level of Assist: 4 Gait Persons Needed: 1 Gait Assistive Device: Cane Large Base Quad Patient ambulated 20'x5, 3 times with a hemiwalker and 2 times with a quad cane. Patient ambulates slowly, antalgic. Exercises NuStep Minutes: 15 NuStep Workload: 4 (Patient positioned in chair to not go more than 90 degrees hip flexion, and did not use right arm.) Treatments transfers, ambulation, functional strengthening Assessment Current Status: Fair Progress improving ambulation, patient needs rest breaks often PT Electrician Chief Goals Electrician Chief Goals PT Chcf Goals Time Frame: Feb 14, 2018 Transfers (B,C,W/C) (FIM): 6 Sit to Lying (QC): 6 Lying-Sitting on Side/Bed(QC): 6 Sit to Stand (QC): 6 Rollin Roll Left to Right (QC): 6 Chair/Yde-sb-Ykjyd Xfer(QC): 6 Car Transfer (QC): 6 Does the Patient Walk: Yes Gait (FIM): 6 Gait distance (FIM): 3=150 ft Distance: 150' Walk 10 feet (QC): 6 Walk 10ft-Uneven Surface(QC): 6 Walk 50ft with 2 Turns (QC): 6 Walk 150 ft (QC): 6 Gait Level of Assist: 6 Gait Assistive Device: Walker Mauricio Stairs (FIM): 2 # of Steps: 4 1 Step (curb) (QC): 5 4 Steps (QC): 5 12 Steps (QC): 9 Stairs Level Of Assist: 5 Picking up an Object (QC): 5 PT Plan Problem List Problem List: Activity Tolerance, Functional Strength, Safety, Balance, Gait, Transfer, Bed Mobility, ROM Treatment/Plan Treatment Plan: Continue Plan of Care Treatment Plan: Bed Mobility, Concurrent Therapy, Education, Functional Activity Gianfranco, Functional Strength, Group Therapy, Gait, Safety, Therapeutic Exercise, Transfers Treatment Duration: Feb 14, 2018 Frequency: At least 5 of 7 days/Wk (IRF) Estimated Hrs Per Day: 1.5 hours per day Patient and/or Family Agrees t: Yes Safety Risks/Education Patient Education: Gait Training, Transfer Techniques, Reviewed Precautions, Correct Positioning, Safety Issues Teaching Recipient: Patient Teaching Methods: Demonstration, Discussion Response to Teaching: Reinforcement Needed Time/GCodes Time In: 1000 Time Out: 1100 Total Billed Treatment Time: 60 Total Billed Treatment 1 visit GT 45' EX 15' GUERLINE JONES PT Jan 08, 2018 10:59
[2018-01-08] MEDS: ENOXAPARIN 30 MG/0.3 ML (LOVENOX) SYR SC SCH (12:38)
--- NOTE | 2018-01-08 13:32 | Occupational Ther Daily Note ---
OT Current Status-Daily Note Subjective Pt seen in room, up in recliner, agreeable to OT. No pain mentioned. Said he had slept well last night Appearance Alert, cooperative Mental Status/Objective Functional [place] Measure 0=Not Assessed/NA 4=Minimal Assistance 1=Total Assistance 5=Supervision or Setup 2=Maximal Assistance 6=Modified [place] 3=Moderate Assistance 7=Complete [place] ADL-Treatment Pt declined shower or changing clothes but wanted to try toileting in bathroom. Cues for hand placement for sit to stand. Walked about 20 feet to bathroom with CGA but with assist at times for placement of jazlyn walker. He tended to put it out in front of him too far and at times it would be in the way of his steps. He was able to get on/off BSc over toilet with CGA and education/cues for technique. He was able to get pants down but needed just a little help getting them up over R hip and was able to manage hygiene. He walked with CGA to sink to brush teeth and comb hair and shaved with electric razor with setup. He walked with CGA, cues, jazlyn walker to w/c and recalled hand placement. Functional [place] Measure 0=Not Assessed/NA 4=Minimal Assistance 1=Total Assistance 5=Supervision or Setup 2=Maximal Assistance 6=Modified [place] 3=Moderate Assistance 7=Complete IndependenceIRFPAI Quality Coding Scale 6 Independent with activity with or without an assistive device 5 Patient requires set up or clean up by helper. Patient completes activity by themselves 4 Supervision or touching assist (CGA). [place] provide cues , steadying assist 3 The helper provides less than half the effort to complete the activity 2 The helper provides more than half the effort to complete the activity 1 Dependent. The helper does all the effort to complete an activity 7 Patient refused to complete or attempt activity 9 The patient did not perform the activity before the current illness or injury 88 Not attempted due to Medical conditions or safety concerns Grooming (FIM): 4 (CGA at sink to wash hands and face, brush teeth, comb hair. Shaved while seated with setup and used R hand at times) Toileting (FIM): 4 (CGA for clothing management. SBA for hygiene. BSC over toilet, jazlyn walker, grab bar) Toilet/Commode Transfer (FIM): 4 (CGA, getting on and off BSC over toilet) Other Treatment Pt was transported to gym per w/c and completed activities to increase strength in bilat UEs, following physician activity restrictions R upper arm. He was able to do arc activity x 2 sets with L hand. Completed placing pegs with L hand and removing them with R hand, as well as placing them with R hand and removing with L. He required frequent recovery periods and coughed at times which increased his fatigue. Care transferred to PT. Education OT Patient Education: Modified ADL techniques, Progress toward Goal/Update tx plan, Purpose of tx/functional activities, Safety issues, Transfer techniques Teaching Recipient: Patient Teaching Methods: Discussion Response to Teaching: Verbalize Understanding, Return Demonstration, Reinforcement Needed OT Short Term Goals Short Term Goals Eating(FIM): 6 Additional Short Term Goals: 1-Demonstrate ADL Tasks, 2-Verbalize Understanding , 3-ImproveStrength/Gianfranco 1=Demonstrate adherence to instructed precautions during ADL tasks. 2=Patient will verbalize/demonstrate understanding of assistive devices/ modifications for ADL. 3=Patient will improve strength/tolerance for activity to enable patient to perform ADL's. OT Mcfp Goals Director Of Vendor Management Goals Time Frame: Jan 27, 2018 Eating (FIM): 6 Eating (QC): 6 Groomin Oral Hygiene (QC): 6 Bathing(FIM): 5 Shower/Bathe Self (QC): 5 Upper Body Dressing(FIM): 6 Upper Body Dressing (QC): 6 Lower Body Dressing(FIM): 5 Lower Body Dressing (QC): 5 On/Off Footwear (QC): 5 Toileting(FIM): 6 Toileting Hygiene (QC): 6 Toilet/Commode Transfer(FIM): 6 Toilet/Commode Transfer (QC): 6 Tub Transfer(FIM): 5 (or shower) Shower Transfer(FIM): 5 Additional Goals: 1-Demonstrate ADL Tasks, 2-Verbalize Understanding, 3- ImproveStrength/Gianfranco 1=Demonstrate adherence to instructed precautions during ADL tasks. 2=Patient will verbalize/demonstrate understanding of assistive devices/ modifications for ADL. 3=Patient will improve strength/tolerance for activity to enable patient to perform ADL's. OT Education/Plan Problem List/Assessment Pt would benefit from skilled OT to increase his independence in basic self car to allow him to safely return to his mother's home after discharge, with fdc goal to return to his own home. Discharge Recommendations Plan/Recommendations: Continue POC Treatment Plan/Plan of Care Patient would benefit from OT for education, treatment and training to promote independence in ADL's, mobility, safety and/or upper extremity function for ADL' s. Plan of Care: ADL Retraining, Functional Mobility, Group Exercise/Act as Ind ( educaiton, exercise, activity tolerance, functional activities, socialization), UE Funct Exercise/Act, UE Neuromus Re-Ed/Coord, OTHER (energy conservation educaton) Treatment Duration: Jan 27, 2018 Frequency: Modified Program (IRF) Estimated Hrs Per Day: 1.5 hours per day Agreement: Yes Rehab Potential: Fair Time/GCodes Start Time: 09:00 Stop Time: 10:00 Total Time Billed (hr/min): 60 Billed Treatment Time visit, 35 minutes ADL, 25 minutes exercise ROSSI KAUFMAN OT Jan 08, 2018 13:32
--- NOTE | 2018-01-08 15:14 | Therapy Group Daily Note ---
Therapy Daily Group Note Patient Education Topic Home Safety Exercises LE Seated Exercise, UE Exercise Other/Notes Pt transported via w/c to OT/PT group in [facility]. Group consisted of introductions (name, place living, have you ever fallen), UE/LE seated exercises , home safety education and pt experiences/strategies for being safe at home.. Pt introduced self appropriately and actively listened to peers. Pt contributed to and initiated conversations throughout group. Pt was able to complete UE/LE exercises, fatigued easily. Verbalized understanding topics and was able to give examples from personal experience. Pt was able to stand for positioning change. Pt verbalized understanding of educational topic and discuss alternatives for home safety . Pt then maneuvered w/c back to room and sat in recliner after therapy. Call light/phone in reach, all needs met in room. Start Time: 13:00 Stop Time: 14:20 Total Billed Treatment Time: 80 Total Billed Treatment 1-GRP ZELDA JOHNSON Jan 08, 2018 15:13
[2018-01-08 16:39] VITALS: BP 135/84
--- NOTE | 2018-01-08 20:14 | PM & R (SOAP) Progress Note ---
Subjective This was a face to face visit with the patient. Date Seen by Provider: Jan 08, 2018 Time Seen by Provider: 20:00 Subjective/Events-last exam Patient was seen in his room this evening Case discussed with RN Patients BP better controlled with addition of Lopressor Patient Min assist for transfer Date Identified: Jan 08, 2018 Time Identified: 20:00 Medication Intervention: Med added as per above Objective Physician Exam Last Set of Vital Signs Vital Signs Date Time Temp Pulse Resp B/P (MAP) Pulse Ox O2 Delivery O2 Flow Rate FiO2 01/08/18 16:39 97.8 89 16 135/84 (101) 95 Room Air Capillary Refill : Less Than 3 Seconds I&O Intake and Output 01/08/18 00:00 Intake Total 630 ml Output Total 1100 ml Balance -470 ml Intake Oral 630 ml Output Urine Total 1100 ml # Bowel Movements 1 General: Alert, Oriented X3, Cooperative, No Acute Distress HEENT: Atraumatic, PERRLA, EOMI, Mucous Memb Moist/[place], Other (tongue pink and noncoated) Neck: Supple, No JVD Lungs: Clear to Auscultation Heart: Regular Rate Abdomen: Normal Bowel Sounds Extremities: No Edema Skin: Other (incision healing) Neuro: Other (RT arm in slingRT LE strength 3-/5 Left Lower limb 3+/5 grossly Strength FREDIS LIMB 4/5 Has manager union strength RT Sensation decresed to touch in feet) Psych/Mental Status: Mental Status NL Results Lab Data Laboratory Tests 01/07/18 06:05: White Blood Count 8.3, Red Blood Count 2.97L, Hemoglobin 8.9L, Hematocrit 26L, Mean Corpuscular Volume 87, Mean Corpuscular Hemoglobin 30, Mean Corpuscular Hemoglobin Concent 34, Red Cell Distribution Width 14.0, Platelet Count 399, Mean Platelet Volume 7.8, Neutrophils (%) (Auto) 70, Lymphocytes (%) (Auto) 15, Monocytes (%) (Auto) 15H, Eosinophils (%) (Auto) 0, Basophils (%) (Auto) 0, Neutrophils # (Auto) 5.8, Lymphocytes # (Auto) 1.2, Monocytes # (Auto) 1.2H, Eosinophils # (Auto) 0.0, Basophils # (Auto) 0.0, Sodium Level 133L, Potassium Level 3.8, Chloride Level 95L, Carbon Dioxide Level 28, Anion Gap 10, Blood Urea Nitrogen 10, Creatinine 0.56L, Estimat Glomerular Filtration Rate > 60, BUN /Creatinine Ratio 18, Glucose Level 102, Calcium Level 9.1, Corrected Calcium 10.0, Total Bilirubin 0.5, Aspartate Amino Transf (AST/SGOT) 36H, Alanine Aminotransferase (ALT/SGPT) 16, Alkaline Phosphatase 94, Total Protein 5.6L, Albumin 2.9L Assessment/Plan Assessment and Plan RT path prox fracture femur s/p repair HTN better controlled with adjustment in meds Metastatic tonsillar CA with extensive involvement to lungs and bone Postop anemia Tachycardia resolved Hyponatremia Prior left hip hemiarthroplasty oral thrush treated Severe protein calorie malnutrition on supplement with hypoalbuminemia noted HLD recent Hx of [place] with CAD Tobaccoism abstaining Plan Continue PT/OT Monitor Blood pressure and adjust meds as needed Co-Morbidities that are continuing to impact the rehab process: (include details ) OSCAR SULLIVAN MD Jan 08, 2018 20:14
[2018-01-08] MEDS: POLYETHYLENE GLYCOL 17 GM (MIRALAX) PACK PO SCH (20:21)
[2018-01-08] MEDS: DOCUSATE SODIUM 100 MG (COLACE) CAP PO SCH (20:21)
[2018-01-09] MEDS: NYSTATIN ORAL SUSP 5 ML UDC PO SCH ×5 (01:34→23:07)
[2018-01-09] MEDS: HYDROcodone/APAP 10 MG/325 MG (LORTAB) TAB PO PRN ×5 (01:34→23:07)
[2018-01-09 06:00] VITALS: BP 152/89
--- NOTE | 2018-01-09 08:32 | PM & R (SOAP) Progress Note ---
Subjective This was a face to face visit with the patient. Date Seen by Provider: Jan 09, 2018 Time Seen by Provider: 07:30 Subjective/Events-last exam Patient was seen in his room this AM patient min assist for transfers.S Blood pressure still somewhat elevated.CBC noted Patient no longer tachycardic. Review of Systems Musculoskeletal: shoulder pain Objective Physician Exam Last Set of Vital Signs Vital Signs Date Time Temp Pulse Resp B/P (MAP) Pulse Ox O2 Delivery O2 Flow Rate FiO2 01/09/18 06:00 97.7 92 18 152/89 (110) 94 Room Air Capillary Refill : Less Than 3 Seconds I&O Intake and Output 01/09/18 00:00 Intake Total 540 ml Output Total 675 ml Balance -135 ml Intake Oral 540 ml Output Urine Total 675 ml # Voids 2 General: Alert, Oriented X3, Cooperative, No Acute Distress HEENT: Atraumatic, PERRLA, EOMI, Mucous Memb Moist/[place], Other (tongue pink and noncoated) Neck: Supple, No JVD Lungs: Clear to Auscultation Heart: Regular Rate Abdomen: Normal Bowel Sounds Extremities: No Edema Skin: Other (incision healing) Neuro: Other (RT arm in slingRT LE strength 3-/5 Left Lower limb 3+/5 grossly Strength FREDIS LIMB 4/5 Has hospital clerk strength RT Sensation decresed to touch in feet) Psych/Mental Status: Mental Status NL Results Lab Data Laboratory Tests 01/07/18 06:05: White Blood Count 8.3, Red Blood Count 2.97L, Hemoglobin 8.9L, Hematocrit 26L, Mean Corpuscular Volume 87, Mean Corpuscular Hemoglobin 30, Mean Corpuscular Hemoglobin Concent 34, Red Cell Distribution Width 14.0, Platelet Count 399, Mean Platelet Volume 7.8, Neutrophils (%) (Auto) 70, Lymphocytes (%) (Auto) 15, Monocytes (%) (Auto) 15H, Eosinophils (%) (Auto) 0, Basophils (%) (Auto) 0, Neutrophils # (Auto) 5.8, Lymphocytes # (Auto) 1.2, Monocytes # (Auto) 1.2H, Eosinophils # (Auto) 0.0, Basophils # (Auto) 0.0, Sodium Level 133L, Potassium Level 3.8, Chloride Level 95L, Carbon Dioxide Level 28, Anion Gap 10, Blood Urea Nitrogen 10, Creatinine 0.56L, Estimat Glomerular Filtration Rate > 60, BUN /Creatinine Ratio 18, Glucose Level 102, Calcium Level 9.1, Corrected Calcium 10.0, Total Bilirubin 0.5, Aspartate Amino Transf (AST/SGOT) 36H, Alanine Aminotransferase (ALT/SGPT) 16, Alkaline Phosphatase 94, Total Protein 5.6L, Albumin 2.9L Assessment/Plan Assessment and Plan Rt path prox femur fracture s/p repair metastatic tonsillar CA with extensive involvement to lungs and bone Post op anemia Tachycardia resolved Hyponatremia improved Prior left hip hemiarthroplasty HTN better controlled with addition of Lopressor Severe protein calorie malnutrition on supplement HLD Oral thrush treated recent HX of CT with CAD Tobaccoism abstaining Plan Continue PT/OT Adjust Blood Pressure meds as needed Goal return home with family at max level of functional [place] taking into consideration his ortho restrictions Co-Morbidities that are continuing to impact the rehab process: (include details ) OSCAR SULLIVAN MD Jan 09, 2018 08:32
--- NOTE | 2018-01-09 08:38 | Progress Note (SOAP) ---
Subjective Time Seen by a Provider: 08:35 Subjective/Events-last exam Patient doing physical therapy today. Patient doing his work Objective Exam Vital Signs Date Time Temp Pulse Resp B/P (MAP) Pulse Ox O2 Delivery O2 Flow Rate FiO2 01/09/18 06:00 97.7 92 18 152/89 (110) 94 Room Air 01/08/18 20:40 Room Air 01/08/18 16:39 97.8 89 16 135/84 (101) 95 Room Air 01/08/18 09:27 Room Air I & O 01/09/18 07:00 Intake Total 540 ml Output Total 125 ml Balance 415 ml Capillary Refill : Less Than 3 Seconds General Appearance: No Apparent Distress, Thin HEENT: Normal ENT Inspection Neck: Full Range of Motion Respiratory: No Accessory Muscle Use, No Respiratory Distress, Decreased Breath Sounds Cardiovascular: Regular Rate, Rhythm, No Murmur Assessment/Plan Assessment/Plan Assess & Plan/Chief Complaint Hip fracture Right arm fracture. Metastatic tonsillar cancer. Metastasis to bone and lung. COPD. Previous smoker. Previous drinker. . 01/08/18. Right hip fracture. Right arm fracture. Metastatic tonsillar cancer. Metastasis to bone and leg. COPD. Previous smoker and drinker. Patient states he had a good workout yesterday. Patient states he's eating well. Final Diagnosis Right hip fracture. Right arm fracture. Metastatic tonsillar cancer. Metastasis to bone and lung. COPD. Previous tobaccoism. Previous drinker. Clinical Quality Measures DVT/VTE Risk/Contraindication: Risk Factor Score Per Nursin RFS Level Per Nursing on Admit: 4+=Very High OBED CHAU DO Jan 09, 2018 08:38
--- NOTE | 2018-01-09 08:41 | Occupational Ther Daily Note ---
OT Current Status-Daily Note Subjective Pt seen in room, up in recliner, agreeable to OT. Reported he was very tired from PT and did not want to shower or do other ADLs. Appearance Alert, cooperative Mental Status/Objective Functional [place] Measure 0=Not Assessed/NA 4=Minimal Assistance 1=Total Assistance 5=Supervision or Setup 2=Maximal Assistance 6=Modified [place] 3=Moderate Assistance 7=Complete [place] ADL-Treatment Functional [place] Measure 0=Not Assessed/NA 4=Minimal Assistance 1=Total Assistance 5=Supervision or Setup 2=Maximal Assistance 6=Modified [place] 3=Moderate Assistance 7=Complete IndependenceIRFPAI Quality Coding Scale 6 Independent with activity with or without an assistive device 5 Patient requires set up or clean up by helper. Patient completes activity by themselves 4 Supervision or touching assist (CGA). [place] provide cues , steadying assist 3 The helper provides less than half the effort to complete the activity 2 The helper provides more than half the effort to complete the activity 1 Dependent. The helper does all the effort to complete an activity 7 Patient refused to complete or attempt activity 9 The patient did not perform the activity before the current illness or injury 88 Not attempted due to Medical conditions or safety concerns Other Treatment Pt did seated UE strengthening activities with 1/2# weight on each arm. He worked with dominoes as well as large pegs, using his R UE when he could and where it did not cause any pain. He followed hip precautions as well as nwb precautions for R UE. He required occasional recovery breaks due to SOA or from coughing. Pt reported that he is looking forward to returning home and that his mother and stepfather will be available to help him. He misses his dog. pt left up in recliner, all needs met. Education OT Patient Education: Progress toward Goal/Update tx plan, Purpose of tx/ functional activities, Reviewed precautions Teaching Recipient: Patient Teaching Methods: Discussion Response to Teaching: Verbalize Understanding OT Short Term Goals Short Term Goals Eating(FIM): 6 Additional Short Term Goals: 1-Demonstrate ADL Tasks, 2-Verbalize Understanding , 3-ImproveStrength/Gianfranco 1=Demonstrate adherence to instructed precautions during ADL tasks. 2=Patient will verbalize/demonstrate understanding of assistive devices/ modifications for ADL. 3=Patient will improve strength/tolerance for activity to enable patient to perform ADL's. OT Sole Ruffer Goals Half-Way Goals Time Frame: Jan 27, 2018 Eating (FIM): 6 Eating (QC): 6 Groomin Oral Hygiene (QC): 6 Bathing(FIM): 5 Shower/Bathe Self (QC): 5 Upper Body Dressing(FIM): 6 Upper Body Dressing (QC): 6 Lower Body Dressing(FIM): 5 Lower Body Dressing (QC): 5 On/Off Footwear (QC): 5 Toileting(FIM): 6 Toileting Hygiene (QC): 6 Toilet/Commode Transfer(FIM): 6 Toilet/Commode Transfer (QC): 6 Tub Transfer(FIM): 5 (or shower) Shower Transfer(FIM): 5 Additional Goals: 1-Demonstrate ADL Tasks, 2-Verbalize Understanding, 3- ImproveStrength/Gianfranco 1=Demonstrate adherence to instructed precautions during ADL tasks. 2=Patient will verbalize/demonstrate understanding of assistive devices/ modifications for ADL. 3=Patient will improve strength/tolerance for activity to enable patient to perform ADL's. OT Education/Plan Problem List/Assessment Pt would benefit from skilled OT to increase his independence in basic self car to allow him to safely return to his mother's home after discharge, with nursing home goal to return to his own home. Discharge Recommendations Plan/Recommendations: Continue POC Treatment Plan/Plan of Care Patient would benefit from OT for education, treatment and training to promote independence in ADL's, mobility, safety and/or upper extremity function for ADL' s. Plan of Care: ADL Retraining, Functional Mobility, Group Exercise/Act as Ind ( educaiton, exercise, activity tolerance, functional activities, socialization), UE Funct Exercise/Act, UE Neuromus Re-Ed/Coord, OTHER (energy conservation educaton) Treatment Duration: Jan 27, 2018 Frequency: Modified Program (IRF) Estimated Hrs Per Day: 1.5 hours per day Agreement: Yes Rehab Potential: Fair Time/GCodes Start Time: 09:00 Stop Time: 10:00 Total Time Billed (hr/min): 60 Billed Treatment Time visit, 60 minutes exercise ROSSI KAUFMAN OT Jan 09, 2018 08:41
--- NOTE | 2018-01-09 08:57 | Physical Therapy Daily Note ---
PT Daily Note-Current Subjective Patient in recliner pre tx, agrees to PT, has 8/10 pain in right hip and arm and back. Appearance Patient in recliner post tx with nurse call, phone, tray, all needs met. Mental Status Patient Orientation: Person, Place, Situation right arm sling Transfers Functional [place] Measure 0=Not Assessed/NA 4=Minimal Assistance 1=Total Assistance 5=Supervision or Setup 2=Maximal Assistance 6=Modified [place] 3=Moderate Assistance 7=Complete IndependenceIRFPAI Quality Coding Scale 6 Independent with activity with or without an assistive device 5 Patient requires set up or clean up by helper. Patient completes activity by themselves 4 Supervision or touching assist (CGA). [place] provide cues , steadying assist 3 The helper provides less than half the effort to complete the activity 2 The helper provides more than half the effort to complete the activity 1 Dependent. The helper does all the effort to complete an activity 7 Patient refused to complete or attempt activity 9 The patient did not perform the activity before the current illness or injury 88 Not attempted due to Medical conditions or safety concerns Transfers (B, C, W/C) (FIM): 4 Sit to/from Stand: 4 Bed to/from Chair: 4 CGA, good hand placement, steady Weight Bearing Right Lower Extremity: Right Weight Bearing/Tolerated Left Lower Extremity: Left Weight Bearing/Tolerated Non wt bearing RU LIMB Gait Training Gait (FIM): 2 Distance: 75'x4 Gait Level of Assist: 4 Gait Persons Needed: 1 Gait Assistive Device: Cane Large Base Quad Patient has antalgic ambulation, slow, no LOB. Exercises Standing: Hip Abduction (just 10 reps), Hamstring curls, Heel/toe raises, Mini squats Standing Reps: 15 LAQ alternating for 5 min Treatments transfers, ambulation, functional strengthening Assessment Current Status: Fair Progress improving endurance but patient needs frequent rest breaks PT Fur Weigher Goals Fur Weigher Goals PT Fur Weigher Goals Time Frame: Feb 14, 2018 Transfers (B,C,W/C) (FIM): 6 Sit to Lying (QC): 6 Lying-Sitting on Side/Bed(QC): 6 Sit to Stand (QC): 6 Rollin Roll Left to Right (QC): 6 Chair/Uck-ep-Uphix Xfer(QC): 6 Car Transfer (QC): 6 Does the Patient Walk: Yes Gait (FIM): 6 Gait distance (FIM): 3=150 ft Distance: 150' Walk 10 feet (QC): 6 Walk 10ft-Uneven Surface(QC): 6 Walk 50ft with 2 Turns (QC): 6 Walk 150 ft (QC): 6 Gait Level of Assist: 6 Gait Assistive Device: Walker Mauricio Stairs (FIM): 2 # of Steps: 4 1 Step (curb) (QC): 5 4 Steps (QC): 5 12 Steps (QC): 9 Stairs Level Of Assist: 5 Picking up an Object (QC): 5 PT Plan Problem List Problem List: Activity Tolerance, Functional Strength, Safety, Balance, Gait, Transfer, Bed Mobility, ROM Treatment/Plan Treatment Plan: Continue Plan of Care Treatment Plan: Bed Mobility, Concurrent Therapy, Education, Functional Activity Gianfranco, Functional Strength, Group Therapy, Gait, Safety, Therapeutic Exercise, Transfers Treatment Duration: Feb 14, 2018 Frequency: At least 5 of 7 days/Wk (IRF) Estimated Hrs Per Day: 1.5 hours per day Patient and/or Family Agrees t: Yes Safety Risks/Education Patient Education: Gait Training, Transfer Techniques, Reviewed Precautions, Correct Positioning, Safety Issues Teaching Recipient: Patient Teaching Methods: Demonstration, Discussion Response to Teaching: Reinforcement Needed Time/GCodes Time In: 0800 Time Out: 0900 Total Billed Treatment Time: 60 Total Billed Treatment 1 visit EX 30' GT 30' GUERLINE JONES PT Jan 09, 2018 08:57
[2018-01-09] MEDS: meTOprolol TARTRATE 25 MG (LOPRESSOR) TABLET PO SCH ×2 (08:59→21:07)
[2018-01-09] MEDS: morphine ER 30 MG (MS CONTIN) TAB PO SCH ×2 (08:59→21:07)
[2018-01-09] MEDS: CARVEDILOL 6.25 MG (COREG) TAB PO SCH ×2 (08:59→21:07)
[2018-01-09] MEDS: DOCUSATE SODIUM 100 MG (COLACE) CAP PO SCH ×2 (09:00→21:07)
[2018-01-09] MEDS: ENOXAPARIN 30 MG/0.3 ML (LOVENOX) SYR SC SCH (12:15)
--- NOTE | 2018-01-09 14:32 | Therapy Group Daily Note ---
Therapy Daily Group Note Other/Notes Each patient participated in group therapy in the common area of rehab. Each patient sat in a [place] and first had to introduce themselves, state where they were from and recall a specific memory to share with the group. Then, during group therapy each patient had to participate in seated UE and LE exercises and were educated on energy conservation, the benefits of exercise. Patients were encouraged to not only participate but to interact and participate with other group therapy patients. Afterwards, patients ambulated or were transported back to bed or chair with nurse call, phone, tray, all needs met. Start Time: 13:00 Stop Time: 14:10 Total Billed Treatment Time: 70 Total Billed Treatment 1 visit GRP 70' GUERLINE JONES PT Jan 09, 2018 14:32
[2018-01-09 16:23] VITALS: BP 119/90
[2018-01-09] MEDS: POLYETHYLENE GLYCOL 17 GM (MIRALAX) PACK PO SCH (23:39)
[2018-01-10] MEDS: HYDROcodone/APAP 10 MG/325 MG (LORTAB) TAB PO PRN ×4 (04:46→18:27)
[2018-01-10] MEDS: NYSTATIN ORAL SUSP 5 ML UDC PO SCH ×3 (04:46→17:53)
[2018-01-10 05:33] VITALS: BP 163/96
--- NOTE | 2018-01-10 07:45 | PM & R (SOAP) Progress Note ---
Subjective This was a face to face visit with the patient. Date Seen by Provider: Jan 10, 2018 Time Seen by Provider: 07:20 Subjective/Events-last exam Patient was seen in his room this AM pain control adequate.patient min assist for transfers Date Identified: Jan 10, 2018 Time Identified: 07:30 Medication Intervention: Blood pressure meds reviewed Objective Physician Exam Last Set of Vital Signs Vital Signs Date Time Temp Pulse Resp B/P (MAP) Pulse Ox O2 Delivery O2 Flow Rate FiO2 01/10/18 05:33 97.6 93 19 163/96 (118) 96 Room Air Capillary Refill : Less Than 3 Seconds I&O Intake and Output 01/10/18 00:00 Intake Total 1050 ml Output Total 125 ml Balance 925 ml Intake Oral 1050 ml Output Urine Total 125 ml # Voids 4 General: Alert, Oriented X3, Cooperative, No Acute Distress HEENT: Atraumatic, PERRLA, EOMI, Mucous Memb Moist/[place], Other (tongue pink and noncoated) Neck: Supple, No JVD Lungs: Clear to Auscultation Heart: Regular Rate Abdomen: Normal Bowel Sounds Extremities: No Edema Skin: Other (incision healing) Neuro: Other (RT arm in slingRT LE strength 3-/5 Left Lower limb 3+/5 grossly Strength FRDEIS LIMB 4/5 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 Sensation decresed to touch in feet) Psych/Mental Status: Mental Status NL Assessment/Plan Assessment and Plan RT Path prox femur fracture s/p repair Metastatic tonsillar CA with extensive involvement to lungs and bone Postop anemia Tachycardia resolved Hyponatremia improved Prior left hip surgery HTN better controlled but still with Systolic BP elevated Severe Protein calorie malnutrition HLD Oral thrush treated Recent HX of IN with CAD Tobaccoism abstaining Plan Continue Pt/OT Team Conference next week recheck Labs Adjust BP meds as needed See orders Co-Morbidities that are continuing to impact the rehab process: (include details ) OSCAR SULLIVAN MD Jan 10, 2018 07:45
[2018-01-10] MEDS: DOCUSATE SODIUM 100 MG (COLACE) CAP PO SCH ×2 (08:19→20:05)
[2018-01-10] MEDS: CARVEDILOL 6.25 MG (COREG) TAB PO SCH ×2 (08:19→20:06)
[2018-01-10] MEDS: meTOprolol TARTRATE 25 MG (LOPRESSOR) TABLET PO SCH ×2 (08:20→20:06)
[2018-01-10] MEDS: morphine ER 30 MG (MS CONTIN) TAB PO SCH ×2 (08:20→20:06)
--- NOTE | 2018-01-10 08:35 | Physical Therapy Daily Note ---
PT Daily Note-Current Subjective Patient in recliner pre tx, agrees to PT, has pain of 8/10 in back, right arm and hip. Appearance Patient in recliner post tx with nurse call, phone, tray, all needs met. Mental Status Patient Orientation: Normal For Age right arm sling Transfers Functional [place] Measure 0=Not Assessed/NA 4=Minimal Assistance 1=Total Assistance 5=Supervision or Setup 2=Maximal Assistance 6=Modified [place] 3=Moderate Assistance 7=Complete IndependenceIRFPAI Quality Coding Scale 6 Independent with activity with or without an assistive device 5 Patient requires set up or clean up by helper. Patient completes activity by themselves 4 Supervision or touching assist (CGA). [place] provide cues , steadying assist 3 The helper provides less than half the effort to complete the activity 2 The helper provides more than half the effort to complete the activity 1 Dependent. The helper does all the effort to complete an activity 7 Patient refused to complete or attempt activity 9 The patient did not perform the activity before the current illness or injury 88 Not attempted due to Medical conditions or safety concerns Transfers (B, C, W/C) (FIM): 4 Sit to/from Stand: 4 Patient had some difficulty with sit to stand initially and right leg kept slipping out to the side but he was able to do it without assist but did need cues for positioning. Weight Bearing Right Lower Extremity: Right Weight Bearing/Tolerated Left Lower Extremity: Left Weight Bearing/Tolerated Non wt bearing RU LIMB Gait Training Gait (FIM): 2 Distance: 75'x2 Gait Level of Assist: 4 Gait Persons Needed: 1 Gait Assistive Device: Cane Large Base Quad Patient has antalgic ambulation, very slow, poor endurance. Treatments transfers, ambulation Assessment Current Status: Fair Progress slowly improving endurance PT Carpenter'S Helper Goals Carpenter'S Helper Goals PT [facility] Goals Time Frame: Feb 14, 2018 Transfers (B,C,W/C) (FIM): 6 Sit to Lying (QC): 6 Lying-Sitting on Side/Bed(QC): 6 Sit to Stand (QC): 6 Rollin Roll Left to Right (QC): 6 Chair/Ycx-jk-Ohgeb Xfer(QC): 6 Car Transfer (QC): 6 Does the Patient Walk: Yes Gait (FIM): 6 Gait distance (FIM): 3=150 ft Distance: 150' Walk 10 feet (QC): 6 Walk 10ft-Uneven Surface(QC): 6 Walk 50ft with 2 Turns (QC): 6 Walk 150 ft (QC): 6 Gait Level of Assist: 6 Gait Assistive Device: Walker Mauricio Stairs (FIM): 2 # of Steps: 4 1 Step (curb) (QC): 5 4 Steps (QC): 5 12 Steps (QC): 9 Stairs Level Of Assist: 5 Picking up an Object (QC): 5 PT Plan Problem List Problem List: Activity Tolerance, Functional Strength, Safety, Balance, Gait, Transfer, Bed Mobility, ROM Treatment/Plan Treatment Plan: Continue Plan of Care Treatment Plan: Bed Mobility, Concurrent Therapy, Education, Functional Activity Gianfranco, Functional Strength, Group Therapy, Gait, Safety, Therapeutic Exercise, Transfers Treatment Duration: Feb 14, 2018 Frequency: At least 5 of 7 days/Wk (IRF) Estimated Hrs Per Day: 1.5 hours per day Patient and/or Family Agrees t: Yes Safety Risks/Education Patient Education: Gait Training, Transfer Techniques, Reviewed Precautions, Correct Positioning, Safety Issues Teaching Recipient: Patient Teaching Methods: Demonstration, Discussion Response to Teaching: Reinforcement Needed Time/GCodes Time In: 0815 Time Out: 0835 Total Billed Treatment Time: 20 Total Billed Treatment 1 visit GT 20' GUERLINE JONES PT Jan 10, 2018 08:35
[2018-01-10] MEDS: ENOXAPARIN 30 MG/0.3 ML (LOVENOX) SYR SC SCH (12:33)
--- NOTE | 2018-01-10 13:19 | Progress Note-Hospitalist ---
Subjective HPI/CC On Admission Date Seen by Provider: Jan 10, 2018 Time Seen by Provider: 12:30 Subjective/Events-last exam Patient doing well Pain is controlled on schedule pain meds Appears frail but stable Constipation at times and avoid Miralax since it gives him diarrhea Review of Systems Gastrointestinal: Constipation Musculoskeletal: leg pain Objective Exam Vital Signs Vital Signs Date Time Temp Pulse Resp B/P (MAP) Pulse Ox O2 Delivery O2 Flow Rate FiO2 01/10/18 08:45 Room Air 01/10/18 05:33 97.6 93 19 163/96 (118) 96 Capillary Refill : Less Than 3 Seconds General Appearance: No Apparent Distress, WD/WN, Chronically ill, Cachetic Respiratory: Chest Non Tender, Lungs Clear, Normal Breath Sounds, No Accessory Muscle Use, No Respiratory Distress, Decreased Breath Sounds Cardiovascular: Regular Rate, Rhythm, No Edema, No Gallop, No JVD, No Murmur, Normal Peripheral Pulses Neurologic/Psychiatric: Alert, Oriented x3, No Motor/Sensory Deficits, Normal Mood/Affect Results/Procedures Lab Patient resulted labs reviewed. Assessment/Plan Assessment and Plan Assess & Plan/Chief Complaint Assessment: Right hip fracture COPD Chronic pain Constipation Plan: Maintain bowel regimen Monitor closely Diagnosis/Problems Diagnosis/Problems (1) COPD (chronic obstructive pulmonary disease) Status: Chronic Qualifiers: COPD type: unspecified COPD Qualified Codes: J44.9 - Chronic obstructive pulmonary disease, unspecified (2) Frailty Status: Acute (3) Cachexia Status: Acute (4) Hip fracture, right Status: Resolved Qualifiers: Encounter type: subsequent encounter Fracture type: closed Fracture healing: with routine healing Qualified Codes: S72.001D - Fracture of unspecified part of neck of right femur, subsequent encounter for closed fracture with routine healing (5) Anemia Status: Chronic Qualifiers: Anemia type: unspecified type Qualified Codes: D64.9 - Anemia, unspecified (6) Hyponatremia Status: Acute Clinical Quality Measures DVT/VTE Risk/Contraindication: Risk Factor Score Per Nursin RFS Level Per Nursing on Admit: 4+=Very High DIEGO FLETCHER DO Jan 10, 2018 13:19
[2018-01-10 18:15] VITALS: BP 144/87
[2018-01-10] MEDS: POLYETHYLENE GLYCOL 17 GM (MIRALAX) PACK PO SCH (20:06)
[2018-01-11] MEDS: NYSTATIN ORAL SUSP 5 ML UDC PO SCH ×4 (00:09→17:59)
[2018-01-11] MEDS: HYDROcodone/APAP 10 MG/325 MG (LORTAB) TAB PO PRN ×5 (00:09→21:55)
[2018-01-11 05:09] VITALS: BP 157/94
[2018-01-11] MEDS: meTOprolol TARTRATE 25 MG (LOPRESSOR) TABLET PO SCH ×2 (08:11→21:10)
[2018-01-11] MEDS: morphine ER 30 MG (MS CONTIN) TAB PO SCH ×2 (08:11→21:10)
[2018-01-11] MEDS: CARVEDILOL 6.25 MG (COREG) TAB PO SCH ×2 (08:11→21:10)
[2018-01-11] MEDS: DOCUSATE SODIUM 100 MG (COLACE) CAP PO SCH ×2 (08:11→21:10)
[2018-01-11] MEDS: ENOXAPARIN 30 MG/0.3 ML (LOVENOX) SYR SC SCH (14:18)
[2018-01-11 17:55] VITALS: BP 174/96
[2018-01-11] MEDS: POLYETHYLENE GLYCOL 17 GM (MIRALAX) PACK PO SCH (18:05)
[2018-01-11 18:20] VITALS: BP 151/84
[2018-01-12] MEDS: NYSTATIN ORAL SUSP 5 ML UDC PO SCH ×6 (00:28→23:46)
[2018-01-12 04:52] LABS: BASOPHILS % (AUTO) 0 % (0-10); EOSINOPHILS # (AUTO) 0.1 10^3/uL (0.0-0.3); EOSINOPHILS % (AUTO) 1 % (0-10); HEMATOCRIT 27 % (40-54); HEMOGLOBIN 8.5 G/DL (13.3-17.7); LYMPHOCYTES # (AUTO) 1.8 X 10^3 (1.0-4.0); LYMPHOCYTES % (AUTO) 19 % (12-44); MEAN CORPUSCULAR HEMOGLOBIN 28 PG (25-34); MEAN CORPUSCULAR HGB CONC 32 G/DL (32-36); MEAN CORPUSCULAR VOLUME 89 FL (80-99); MEAN PLATELET VOLUME 7.9 FL (7.4-10.4); MONOCYTES # (AUTO) 1.1 X 10^3 (0.0-1.0); MONOCYTES % (AUTO) 11 % (0-12); NEUTROPHILS # (AUTO) 6.8 X 10^3 (1.8-7.8); NEUTROPHILS % (AUTO) 69 % (42-75); PLATELET COUNT 433 10^3/uL (130-400); RED BLOOD COUNT 3.01 10^6/uL (4.35-5.85); RED CELL DISTRIBUTION WIDTH 14.7 % (10.0-14.5); WHITE BLOOD COUNT 9.8 10^3/uL (4.3-11.0)
[2018-01-12] MEDS: HYDROcodone/APAP 10 MG/325 MG (LORTAB) TAB PO PRN ×5 (05:04→23:20)
[2018-01-12 05:09] LABS: ALANINE AMINOTRANSFERASE 13 U/L (0-55); ALKALINE PHOSPHATASE 111 U/L (40-136); BILIRUBIN,TOTAL 0.4 MG/DL (0.1-1.0); BUN/CREATININE RATIO 14; CALCIUM 9.7 MG/DL (8.5-10.1); CARBON DIOXIDE 25 MMOL/L (21-32); CHLORIDE 94 MMOL/L (98-107); CREATININE SERUM 0.56 MG/DL (0.60-1.30); GFR ESTIMATED > 60; GLUCOSE 105 MG/DL (70-105); POTASSIUM 4.2 MMOL/L (3.6-5.0); SODIUM 131 MMOL/L (135-145)
[2018-01-12 05:41] VITALS: BP 166/75
[2018-01-12] MEDS: DOCUSATE SODIUM 100 MG (COLACE) CAP PO SCH ×2 (08:35→20:20)
[2018-01-12] MEDS: morphine ER 30 MG (MS CONTIN) TAB PO SCH ×2 (08:35→20:20)
[2018-01-12] MEDS: CARVEDILOL 6.25 MG (COREG) TAB PO SCH ×2 (08:35→20:20)
[2018-01-12] MEDS: meTOprolol TARTRATE 25 MG (LOPRESSOR) TABLET PO SCH ×2 (08:35→20:20)
--- NOTE | 2018-01-12 08:42 | Progress Note (SOAP) ---
Subjective Time Seen by a Provider: 08:40 Subjective/Events-last exam Patient having severe pain in both hips. To x-ray both hips and pelvis. Patient has history of pneumonia metastasis. Objective Exam Vital Signs Date Time Temp Pulse Resp B/P (MAP) Pulse Ox O2 Delivery O2 Flow Rate FiO2 01/12/18 05:41 97.0 92 12 166/75 (105) 95 Room Air 01/11/18 20:55 Room Air 01/11/18 18:20 151/84 (106) 01/11/18 17:55 98.0 97 20 174/96 (122) 95 Room Air I & O 01/12/18 07:00 Intake Total 1140 ml Balance 1140 ml Capillary Refill : Less Than 3 Seconds General Appearance: No Apparent Distress, Thin HEENT: Normal ENT Inspection Neck: Normal Inspection Respiratory: No Accessory Muscle Use, No Respiratory Distress, Decreased Breath Sounds Cardiovascular: Regular Rate, Rhythm Results Lab Laboratory Tests 01/12/18 04:43 Laboratory Tests 01/12/18 04:43: White Blood Count 9.8, Red Blood Count 3.01L, Hemoglobin 8.5L, Hematocrit 27L, Mean Corpuscular Volume 89, Mean Corpuscular Hemoglobin 28, Mean Corpuscular Hemoglobin Concent 32, Red Cell Distribution Width 14.7H, Platelet Count 433H, Mean Platelet Volume 7.9, Neutrophils (%) (Auto) 69, Lymphocytes (%) (Auto) 19, Monocytes (%) (Auto) 11, Eosinophils (%) (Auto) 1, Basophils (%) (Auto) 0, Neutrophils # (Auto) 6.8, Lymphocytes # (Auto) 1.8, Monocytes # (Auto) 1.1H, Eosinophils # (Auto) 0.1, Basophils # (Auto) 0.0, Sodium Level 131L, Potassium Level 4.2, Chloride Level 94L, Carbon Dioxide Level 25, Anion Gap 12, Blood Urea Nitrogen 8, Creatinine 0.56L, Estimat Glomerular Filtration Rate > 60, BUN/ Creatinine Ratio 14, Glucose Level 105, Calcium Level 9.7, Corrected Calcium 10.5H, Total Bilirubin 0.4, Aspartate Amino Transf (AST/SGOT) 28, Alanine Aminotransferase (ALT/SGPT) 13, Alkaline Phosphatase 111, Total Protein 6.0L, Albumin 3.0L Assessment/Plan Assessment/Plan Assess & Plan/Chief Complaint Hip fracture Right arm fracture. Metastatic tonsillar cancer. Metastasis to bone and lung. COPD. Previous smoker. Previous drinker. . 01/08/18. Right hip fracture. Right arm fracture. Metastatic tonsillar cancer. Metastasis to bone and leg. COPD. Previous smoker and drinker. Patient states he had a good workout yesterday. Patient states he's eating well.. 01/12/18. Severe pain in both hips. Right hip fracture. Right arm fracture. Metastatic tonsillar cancer. Metastasis to bone and legs. COPD. Cachectic. Anemia. Hyponatremia Clinical Quality Measures DVT/VTE Risk/Contraindication: Risk Factor Score Per Nursin RFS Level Per Nursing on Admit: 4+=Very High OBED CHAU DO Jan 12, 2018 08:42
--- NOTE | 2018-01-12 10:44 | Physical Therapy Daily Note ---
PT Daily Note-Current Subjective Pt. snarls a bit as this ENGINEERING TEST SPECIALIST enters. "They told me I dont have to have therapies today" "Im in so much pain and Im having a lot of tests and I need to rest in between." pt. agrees to some supine LE exercises to tolerance Pain Numeric Pain Scale: 8 Location: Medial Location Body Site: Back Pain Description: Pressure Appearance grimace, Mental Status Patient Orientation: Person, Place, Time, Situation Transfers Functional [place] Measure 0=Not Assessed/NA 4=Minimal Assistance 1=Total Assistance 5=Supervision or Setup 2=Maximal Assistance 6=Modified [place] 3=Moderate Assistance 7=Complete IndependenceIRFPAI Quality Coding Scale 6 Independent with activity with or without an assistive device 5 Patient requires set up or clean up by helper. Patient completes activity by themselves 4 Supervision or touching assist (CGA). [place] provide cues , steadying assist 3 The helper provides less than half the effort to complete the activity 2 The helper provides more than half the effort to complete the activity 1 Dependent. The helper does all the effort to complete an activity 7 Patient refused to complete or attempt activity 9 The patient did not perform the activity before the current illness or injury 88 Not attempted due to Medical conditions or safety concerns no rolling or TRFs secondary to pain c/o Weight Bearing Right Lower Extremity: Right Weight Bearing/Tolerated Left Lower Extremity: Left Weight Bearing/Tolerated Non wt bearing RU LIMB Exercises Supine Ex: Ankle pumps, Quad Set, Glut sets, Heel Slides, Short Arc Quads, Hip abd/add Supine Reps: 12 Assessment Current Status: Poor Progress slow movement, pain limits participation this date PT Quantitative Analyst Marketing Goals Quantitative Analyst Marketing Goals PT Care Home Goals Time Frame: Feb 14, 2018 Transfers (B,C,W/C) (FIM): 6 Sit to Lying (QC): 6 Lying-Sitting on Side/Bed(QC): 6 Sit to Stand (QC): 6 Rollin Roll Left to Right (QC): 6 Chair/Ijs-ix-Uvzgt Xfer(QC): 6 Car Transfer (QC): 6 Does the Patient Walk: Yes Gait (FIM): 6 Gait distance (FIM): 3=150 ft Distance: 150' Walk 10 feet (QC): 6 Walk 10ft-Uneven Surface(QC): 6 Walk 50ft with 2 Turns (QC): 6 Walk 150 ft (QC): 6 Gait Level of Assist: 6 Gait Assistive Device: Walker Mauricio Stairs (FIM): 2 # of Steps: 4 1 Step (curb) (QC): 5 4 Steps (QC): 5 12 Steps (QC): 9 Stairs Level Of Assist: 5 Picking up an Object (QC): 5 PT Plan Treatment/Plan Treatment Plan: Continue Plan of Care Treatment Plan: Bed Mobility, Concurrent Therapy, Education, Functional Activity Gianfranco, Functional Strength, Group Therapy, Gait, Safety, Therapeutic Exercise, Transfers Treatment Duration: Feb 14, 2018 Frequency: At least 5 of 7 days/Wk (IRF) Estimated Hrs Per Day: 1.5 hours per day Patient and/or Family Agrees t: Yes Time/GCodes Time In: 1015 Time Out: 1035 Total Billed Treatment Time: 20 Total Billed Treatment 1,EX20m G Codes Necessary: BRYAN Malcolm ENGINEERING TEST SPECIALIST Jan 12, 2018 10:44
--- NOTE | 2018-01-12 13:03 | Occupational Ther Daily Note ---
OT Current Status-Daily Note Subjective Pt seen in room, up in recliner. He immediately c/o pain 9/10 in both hips and said he didn't want to do therapy. Information shared with Dr Jordan and nurse Valencia. Appearance Alert, cooperative but uncomfortable Mental Status/Objective Functional [place] Measure 0=Not Assessed/NA 4=Minimal Assistance 1=Total Assistance 5=Supervision or Setup 2=Maximal Assistance 6=Modified [place] 3=Moderate Assistance 7=Complete [place] ADL-Treatment Pt declined bathing and changing clothes but did need to toilet. He was concerned that he wouldn't be able to walk to the bathroom due to hip pain so BS brought up near recliner. Min-CGA assist up from recliner, CGA transfer on and off [facility]He was able to manage clothing and hygiene CGA, quad cane. Transfer back to recliner with CGA, quad cane. Pt needed several cues to maintain hip precautions, especially abduction. All ADLs took longer than usual due to pain. After UE exercise,he requested to go back to bed. He walked with CGA, quad cane to bed and was helped getting legs into bed due to pain. Pt left up in bed, all needs met. Functional [place] Measure 0=Not Assessed/NA 4=Minimal Assistance 1=Total Assistance 5=Supervision or Setup 2=Maximal Assistance 6=Modified [place] 3=Moderate Assistance 7=Complete IndependenceIRFPAI Quality Coding Scale 6 Independent with activity with or without an assistive device 5 Patient requires set up or clean up by helper. Patient completes activity by themselves 4 Supervision or touching assist (CGA). [place] provide cues , steadying assist 3 The helper provides less than half the effort to complete the activity 2 The helper provides more than half the effort to complete the activity 1 Dependent. The helper does all the effort to complete an activity 7 Patient refused to complete or attempt activity 9 The patient did not perform the activity before the current illness or injury 88 Not attempted due to Medical conditions or safety concerns Toileting (FIM): 4 Toilet/Commode Transfer (FIM): 4 Other Treatment Pt did 10 reps R UE exercise with 1# weight, working on shoulder, elbow, forearm and wrist. Also did 20 squeezes and pinches with blue foam hand director of agronomy. AROM R elbow, forearm and wrist, with no additional resistance. All to strengthen arms to help with ADLs. Education OT Patient Education: Exercise program, Progress toward Goal/Update tx plan, Purpose of tx/functional activities, Transfer techniques Teaching Recipient: Patient Teaching Methods: Discussion Response to Teaching: Verbalize Understanding OT Short Term Goals Short Term Goals Eating(FIM): 6 Additional Short Term Goals: 1-Demonstrate ADL Tasks, 2-Verbalize Understanding , 3-ImproveStrength/Gianfranco 1=Demonstrate adherence to instructed precautions during ADL tasks. 2=Patient will verbalize/demonstrate understanding of assistive devices/ modifications for ADL. 3=Patient will improve strength/tolerance for activity to enable patient to perform ADL's. OT Industrial Real Estate Agent Goals Retirement Goals Time Frame: Jan 27, 2018 Eating (FIM): 6 Eating (QC): 6 Groomin Oral Hygiene (QC): 6 Bathing(FIM): 5 Shower/Bathe Self (QC): 5 Upper Body Dressing(FIM): 6 Upper Body Dressing (QC): 6 Lower Body Dressing(FIM): 5 Lower Body Dressing (QC): 5 On/Off Footwear (QC): 5 Toileting(FIM): 6 Toileting Hygiene (QC): 6 Toilet/Commode Transfer(FIM): 6 Toilet/Commode Transfer (QC): 6 Tub Transfer(FIM): 5 (or shower) Shower Transfer(FIM): 5 Additional Goals: 1-Demonstrate ADL Tasks, 2-Verbalize Understanding, 3- ImproveStrength/Gianfranco 1=Demonstrate adherence to instructed precautions during ADL tasks. 2=Patient will verbalize/demonstrate understanding of assistive devices/ modifications for ADL. 3=Patient will improve strength/tolerance for activity to enable patient to perform ADL's. OT Education/Plan Problem List/Assessment Pt would benefit from skilled OT to increase his independence in basic self car to allow him to safely return to his mother's home after discharge, with jail goal to return to his own home. Discharge Recommendations Plan/Recommendations: Continue POC Treatment Plan/Plan of Care Patient would benefit from OT for education, treatment and training to promote independence in ADL's, mobility, safety and/or upper extremity function for ADL' s. Plan of Care: ADL Retraining, Functional Mobility, Group Exercise/Act as Ind ( educaiton, exercise, activity tolerance, functional activities, socialization), UE Funct Exercise/Act, UE Neuromus Re-Ed/Coord, OTHER (energy conservation educaton) Treatment Duration: Jan 27, 2018 Frequency: Modified Program (IRF) Estimated Hrs Per Day: 1.5 hours per day Agreement: Yes Rehab Potential: Fair Time/GCodes Start Time: 08:30 Stop Time: 09:35 Total Time Billed (hr/min): 65 Billed Treatment Time visit, 35 minutes ADL, 30 minutes exercise ROSSI KAUFMAN OT Jan 12, 2018 13:03
--- NOTE | 2018-01-12 13:28 | Physical Therapy Daily Note ---
PT Daily Note-Current Subjective Pt. up in recliner and initially states he doesnt want to get up or do anything with PT " I just want to lay here", then indicates he wants to "just lay" in bed. C/o pain in back and pelvic area at 8/10. Inquires as to whether there are any reports back on the tests that were run this morning Pain Numeric Pain Scale: 8 Location: Medial Location Body Site: Pelvic Pain Description: Pressure Appearance thin, frail, grimace on face Mental Status Patient Orientation: Person, Place, Situation Transfers Functional [place] Measure 0=Not Assessed/NA 4=Minimal Assistance 1=Total Assistance 5=Supervision or Setup 2=Maximal Assistance 6=Modified [place] 3=Moderate Assistance 7=Complete IndependenceIRFPAI Quality Coding Scale 6 Independent with activity with or without an assistive device 5 Patient requires set up or clean up by helper. Patient completes activity by themselves 4 Supervision or touching assist (CGA). [place] provide cues , steadying assist 3 The helper provides less than half the effort to complete the activity 2 The helper provides more than half the effort to complete the activity 1 Dependent. The helper does all the effort to complete an activity 7 Patient refused to complete or attempt activity 9 The patient did not perform the activity before the current illness or injury 88 Not attempted due to Medical conditions or safety concerns Transfers (B, C, W/C) (FIM): 3 Scootin Rollin Supine to/from Sit: 3 Sit to/from Stand: 3 assist for LEs in to bed Weight Bearing Right Lower Extremity: Right Weight Bearing/Tolerated Left Lower Extremity: Left Weight Bearing/Tolerated Non wt bearing RU LIMB Gait Training Does the Patient Walk?: Yes Gait (FIM): 1 Distance (FIM): 1=up to 49 ft (12ft) Gait Level of Assist: 3 Gait Persons Needed: 1 Gait Assistive Device: Cane Small Base Quad slow, good sequence Exercises Seated Therapy Exercises: Ankle pumps, Sit to stand, Long arc quads Seated Reps: 10 Treatments posotioned with pillows for his comfort, under LEs, under head with small neck pillow layered with std pillow Assessment Current Status: Poor Progress pain limits participation and function this date, No XR report available as of yet PT Chcf Goals Chcf Goals PT Chcf Goals Time Frame: Feb 14, 2018 Transfers (B,C,W/C) (FIM): 6 Sit to Lying (QC): 6 Lying-Sitting on Side/Bed(QC): 6 Sit to Stand (QC): 6 Rollin Roll Left to Right (QC): 6 Chair/Bpy-sl-Ytjkk Xfer(QC): 6 Car Transfer (QC): 6 Does the Patient Walk: Yes Gait (FIM): 6 Gait distance (FIM): 3=150 ft Distance: 150' Walk 10 feet (QC): 6 Walk 10ft-Uneven Surface(QC): 6 Walk 50ft with 2 Turns (QC): 6 Walk 150 ft (QC): 6 Gait Level of Assist: 6 Gait Assistive Device: Walker Mauricio Stairs (FIM): 2 # of Steps: 4 1 Step (curb) (QC): 5 4 Steps (QC): 5 12 Steps (QC): 9 Stairs Level Of Assist: 5 Picking up an Object (QC): 5 PT Plan Treatment/Plan Treatment Plan: Continue Plan of Care Treatment Plan: Bed Mobility, Concurrent Therapy, Education, Functional Activity Gianfranco, Functional Strength, Group Therapy, Gait, Safety, Therapeutic Exercise, Transfers Treatment Duration: Feb 14, 2018 Frequency: At least 5 of 7 days/Wk (IRF) Estimated Hrs Per Day: 1.5 hours per day Patient and/or Family Agrees t: Yes Safety Risks/Education Patient Education: Gait Training, Transfer Techniques, Correct Positioning, Disease Process, Safety Issues Teaching Recipient: Patient Teaching Methods: Demonstration, Discussion Response to Teaching: Return Demonstration, Reinforcement Needed Time/GCodes Time In: 1310 Time Out: 1325 Total Billed Treatment Time: 15 Total Billed Treatment 1,FA15m G Codes Necessary: BRYAN Malcolm DELIVERY SPECIALIST Jan 12, 2018 13:28
[2018-01-12] MEDS: ENOXAPARIN 30 MG/0.3 ML (LOVENOX) SYR SC SCH (13:54)
--- NOTE | 2018-01-12 15:14 | Occupational Ther Daily Note ---
OT Current Status-Daily Note Subjective Pt seen in room, up in bed, agreeable to OT for UE exercise. Pain rated 9/10 and nursing provided meds. Appearance Alert, cooperative Mental Status/Objective Functional [place] Measure 0=Not Assessed/NA 4=Minimal Assistance 1=Total Assistance 5=Supervision or Setup 2=Maximal Assistance 6=Modified [place] 3=Moderate Assistance 7=Complete [place] ADL-Treatment Functional [place] Measure 0=Not Assessed/NA 4=Minimal Assistance 1=Total Assistance 5=Supervision or Setup 2=Maximal Assistance 6=Modified [place] 3=Moderate Assistance 7=Complete IndependenceIRFPAI Quality Coding Scale 6 Independent with activity with or without an assistive device 5 Patient requires set up or clean up by helper. Patient completes activity by themselves 4 Supervision or touching assist (CGA). [place] provide cues , steadying assist 3 The helper provides less than half the effort to complete the activity 2 The helper provides more than half the effort to complete the activity 1 Dependent. The helper does all the effort to complete an activity 7 Patient refused to complete or attempt activity 9 The patient did not perform the activity before the current illness or injury 88 Not attempted due to Medical conditions or safety concerns Other Treatment Pt did 15 reps bilat AROM to UEs (not R shoulder), with no additional resistance. Also worked with yellow Theraputty (gentle resistance) with beads in it to strengthen hands for ADLs. He used both hands together and reported very little discomfort in R upper arm. He was also shown a couple exercises that he could do with the putty on his own. Pt left up in bed, 4 rails up, all needs met. Education OT Patient Education: Progress toward Goal/Update tx plan, Purpose of tx/ functional activities Teaching Recipient: Patient Teaching Methods: Demonstration, Discussion Response to Teaching: Return Demonstration OT Short Term Goals Short Term Goals Eating(FIM): 6 Additional Short Term Goals: 1-Demonstrate ADL Tasks, 2-Verbalize Understanding , 3-ImproveStrength/Gianfranco 1=Demonstrate adherence to instructed precautions during ADL tasks. 2=Patient will verbalize/demonstrate understanding of assistive devices/ modifications for ADL. 3=Patient will improve strength/tolerance for activity to enable patient to perform ADL's. OT Prison Goals Cashier Tube Room Goals Time Frame: Jan 27, 2018 Eating (FIM): 6 Eating (QC): 6 Groomin Oral Hygiene (QC): 6 Bathing(FIM): 5 Shower/Bathe Self (QC): 5 Upper Body Dressing(FIM): 6 Upper Body Dressing (QC): 6 Lower Body Dressing(FIM): 5 Lower Body Dressing (QC): 5 On/Off Footwear (QC): 5 Toileting(FIM): 6 Toileting Hygiene (QC): 6 Toilet/Commode Transfer(FIM): 6 Toilet/Commode Transfer (QC): 6 Tub Transfer(FIM): 5 (or shower) Shower Transfer(FIM): 5 Additional Goals: 1-Demonstrate ADL Tasks, 2-Verbalize Understanding, 3- ImproveStrength/Gianfranco 1=Demonstrate adherence to instructed precautions during ADL tasks. 2=Patient will verbalize/demonstrate understanding of assistive devices/ modifications for ADL. 3=Patient will improve strength/tolerance for activity to enable patient to perform ADL's. OT Education/Plan Problem List/Assessment Pt would benefit from skilled OT to increase his independence in basic self car to allow him to safely return to his mother's home after discharge, with group home goal to return to his own home. Discharge Recommendations Plan/Recommendations: Continue POC Treatment Plan/Plan of Care Patient would benefit from OT for education, treatment and training to promote independence in ADL's, mobility, safety and/or upper extremity function for ADL' s. Plan of Care: ADL Retraining, Functional Mobility, Group Exercise/Act as Ind ( educaiton, exercise, activity tolerance, functional activities, socialization), UE Funct Exercise/Act, UE Neuromus Re-Ed/Coord, OTHER (energy conservation educaton) Treatment Duration: Jan 27, 2018 Frequency: Modified Program (IRF) Estimated Hrs Per Day: 1.5 hours per day Agreement: Yes Rehab Potential: Fair Time/GCodes Start Time: 13:35 Stop Time: 14:00 Total Time Billed (hr/min): 25 Billed Treatment Time visit, 25 minutes exercise ROSSI KAUFMAN OT Jan 12, 2018 15:14
--- NOTE | 2018-01-12 15:50 | Diagnostic Imaging Report ---
INDICATION: Bilateral hip pain. Previous hip replacements. COMPARISON: None. FINDINGS: A frontal radiographic view of the pelvis and multiple dedicated radiographic views of the bilateral hips were obtained. Post surgical changes of previous bilateral hip hemiarthroplasties are noted. The femoral components appear well-seated within the proximal femoral shafts. The femoral components also show appropriate alignment in respect to the [place] acetabuli. No unexpected radiopaque foreign bodies are seen. There is no acute deformity of the pelvis. The SI joints are symmetric. The pubic symphysis is within normal limits. Note is made of calcified arteriosclerosis. IMPRESSION: 1. No acute fracture of the pelvis. 2. Expected post surgical changes of previous bilateral hip hemiarthroplasty. No evidence of hardware fracture or failure. Dictated by: Dictated on workstation # [id number]
--- NOTE | 2018-01-12 19:09 | PM & R (SOAP) Progress Note ---
Subjective This was a face to face visit with the patient. Date Seen by Provider: Jan 12, 2018 Time Seen by Provider: 18:45 Subjective/Events-last exam Patient was seen in his room this evening Patient min assist for transfers Xray pelvis negative for fracture Objective Physician Exam Last Set of Vital Signs Vital Signs Date Time Temp Pulse Resp B/P (MAP) Pulse Ox O2 Delivery O2 Flow Rate FiO2 01/12/18 09:00 Room Air 01/12/18 05:41 97.0 92 12 166/75 (105) 95 Capillary Refill : Less Than 3 Seconds I&O Intake and Output 01/12/18 00:00 Intake Total 1190 ml Balance 1190 ml Intake Oral 1190 ml # Voids 9 # Bowel Movements 1 General: Alert, Oriented X3, Cooperative, No Acute Distress HEENT: Atraumatic, PERRLA, EOMI, Mucous Memb Moist/[place], Other (tongue pink and noncoated) Neck: Supple, No JVD Lungs: Clear to Auscultation Heart: Regular Rate Abdomen: Normal Bowel Sounds Extremities: No Edema Skin: Other (incision healing) Neuro: Other (RT arm in slingRT LE strength 3-/5 Left Lower limb 3+/5 grossly Strength FREDIS LIMB 4/5 Has paleobotanist strength RT Sensation decresed to touch in feet) Psych/Mental Status: Mental Status NL Results Lab Data Laboratory Tests 01/12/18 04:43: White Blood Count 9.8, Red Blood Count 3.01L, Hemoglobin 8.5L, Hematocrit 27L, Mean Corpuscular Volume 89, Mean Corpuscular Hemoglobin 28, Mean Corpuscular Hemoglobin Concent 32, Red Cell Distribution Width 14.7H, Platelet Count 433H, Mean Platelet Volume 7.9, Neutrophils (%) (Auto) 69, Lymphocytes (%) (Auto) 19, Monocytes (%) (Auto) 11, Eosinophils (%) (Auto) 1, Basophils (%) (Auto) 0, Neutrophils # (Auto) 6.8, Lymphocytes # (Auto) 1.8, Monocytes # (Auto) 1.1H, Eosinophils # (Auto) 0.1, Basophils # (Auto) 0.0, Sodium Level 131L, Potassium Level 4.2, Chloride Level 94L, Carbon Dioxide Level 25, Anion Gap 12, Blood Urea Nitrogen 8, Creatinine 0.56L, Estimat Glomerular Filtration Rate > 60, BUN/ Creatinine Ratio 14, Glucose Level 105, Calcium Level 9.7, Corrected Calcium 10.5H, Total Bilirubin 0.4, Aspartate Amino Transf (AST/SGOT) 28, Alanine Aminotransferase (ALT/SGPT) 13, Alkaline Phosphatase 111, Total Protein 6.0L, Albumin 3.0L Assessment/Plan Assessment and Plan Rt path prox femur fracture s/p repair Metastatic tonsillar CA with extensive involvement to lungs and bone Postop anemia Tachycardia resolved Hyponatremia improved Prior left hip surgery HTN with elevated S Blood pressure adjust meds further Severe protein calorie malnutrition HLD Oral Thrush treated Recent HX of AL with CAD Tobaccoism abstaining Plan Continue Pt/OT Team Conference 01-14-18 Adjust Blood pressure meds further Co-Morbidities that are continuing to impact the rehab process: (include details ) OSCAR SULLIVAN MD Jan 12, 2018 19:09
[2018-01-12 19:13] VITALS: BP 145/94
--- NOTE | 2018-01-12 19:40 | Individualized Plan of Care ---
Individualized Plan of Care Rehab Nursing IPOC Order Admission Date Jan 06, 2018 at 12:31 Current Orders Orders Admission Order(Inpt,Obs,Sdc) (01/06/18 12:49) Vital Signs: Routine (Order) 08,16,00 (01/06/18 12:49) Sequential Compression Device 08,20 (01/06/18 12:49) Log Raft Worker-Inpt Rehab Con (01/06/18 12:49) Rehab Nursing Orders-Ipoc (01/06/18 12:49) Physical Therapy Rehab Orders (01/06/18 12:49) Occupational Therapy Rehab Ord (01/06/18 12:49) Speech Therapy Rehab Orders (01/06/18 12:49) Turn And Reposition Q2HR (01/06/18 12:49) Intake & Output 06,14,22 (01/06/18 12:49) Weight Bearing Status (01/06/18 12:49) Precautions (Aru) (01/06/18 12:49) Weekly Weight (Lbs) WEEK (01/06/18 12:49) Code/Resuscitation (01/06/18 12:49) Initiate Admission Nursing Pro .admission (01/06/18 12:49) Consult Physician (01/06/18 12:55) Cbc With Automated Diff (01/07/18 06:00) Comprehensive Metabolic Panel (01/07/18 06:00) Hydrocodone/Apap 10/325 Tablet (Lortab 1 (01/06/18 13:00) Carvedilol Tablet (Coreg Tablet) (01/06/18 21:00) Enoxaparin Injection (Lovenox Injection) (01/06/18 13:00) Nystatin Oral Suspension (Mycostatin O (01/06/18 18:00) Polyethylene Glycol Powder Pkt (Miralax (01/06/18 21:00) Morphine Er Tablet (Ms Contin Tablet) (01/06/18 21:00) General/Regular (01/06/18 Lunch) Ambulate 08,12,20 (01/06/18 13:54) Sequential Compression Device 08,20 (01/06/18 13:54) Dvt/Vte Risk - Notifiy Physici 08 (01/06/18 13:54) Patient Visit (01/06/18 ) Pt Eval High Complexity (01/06/18 ) Ensure High Protein (01/06/18 Lunch) Nursing Communication (Order) (01/06/18 16:01) Follow-Up Appointment (01/06/18 16:40) Enoxaparin Injection (Lovenox Injection) (01/07/18 13:00) Nursing Communication (Order) (01/07/18 14:12) Patient Visit (01/07/18 ) Therapeutic, Group (01/07/18 ) Patient Visit (01/07/18 ) Wheelchair Mgmt/Propulsn 15min (01/07/18 ) Functional Activities, Ea 15 (01/07/18 ) Exercise Therap, Ea 15 Min (01/07/18 ) Metoprolol Tartrate (Ir) Tab (Lopressor (01/07/18 21:00) Patient Visit (01/07/18 ) Speech Sound Lang Comp (01/07/18 ) Docusate Sodium Capsule (Colace Capsule) (01/08/18 21:00) Patient Visit (01/08/18 ) Gait Training, Ea 15 Min (01/08/18 ) Exercise Therap, Ea 15 Min (01/08/18 ) Patient Visit (01/08/18 ) Therapeutic, Group (01/08/18 ) Patient Visit (01/09/18 ) Patient Visit (01/09/18 ) Exercise Therap, Ea 15 Min (01/09/18 ) Gait Training, Ea 15 Min (01/09/18 ) Therapeutic, Group (01/09/18 ) Cbc With Automated Diff (01/12/18 06:00) Comprehensive Metabolic Panel (01/12/18 06:00) Patient Visit (01/09/18 ) Patient Visit (01/10/18 ) Gait Training, Ea 15 Min (01/10/18 ) Nursing Communication (Order) (01/10/18 17:54) Pelvis/Amol Hips 5> Views (01/12/18 08:36) Nursing Communication (Order) (01/12/18 09:18) Patient Visit (01/12/18 ) Exercise Therap, Ea 15 Min (01/12/18 ) Functional Activities, Ea 15 (01/12/18 ) Rehab Nursing Orders: Ongoing Assess. of Cognitive Status, Ongoing Assess. of Function Status, Disease Management & Educaiton, DVT Prophylaxis, Fall Prevention, Fluid/Electrolyte/Nutrition Mgmt, Infection Prevention, Medication Management & Education, Management of Risks & Complications, Management of Skin Intergrity, Nutrition Management, Pain Management, Patient/Family Support PT IPOC Problem List: Activity Tolerance, Functional Strength, Safety, Balance, Gait, Transfer, Bed Mobility, ROM Treatment Plan: Continue Plan of Care Bed Mobility, Concurrent Therapy, Education, Functional Activity Gianfranco, Functional Strength, Group Therapy, Gait, Safety, Therapeutic Exercise, Transfers Treatment Duration: Feb 14, 2018 Frequency: At least 5 of 7 days/Wk (IRF) Estimated Hrs Per Day: 1.5 hours per day OT IPOC Problems: Decreased Activ Tolerance, Decreased UE Strength, Dependent Transfers , Impaired Self-Care Skills, Restricted Funct UE ROM OT Treatment, Training and Edu: Yes OT Problems Pt would benefit from skilled OT to increase his independence in basic self car to allow him to safely return to his mother's home after discharge, with intermediate goal to return to his own home. Plan of Care: ADL Retraining, Functional Mobility, Group Exercise/Act as Ind ( educaiton, exercise, activity tolerance, functional activities, socialization), UE Funct Exercise/Act, UE Neuromus Re-Ed/Coord, OTHER (energy conservation educaton) Treatment Duration: Jan 27, 2018 Frequency: Modified Program (IRF) Estimated Hrs Per Day: 1.[address] IPOC Speech Therapy Treatment Plan: Discontinue ST Treatment Duration: Jan 12, 2018 Frequency: Modified Program (IRF) Estimated Hrs Per Day: Other (0) Log Raft Worker/Case Mgmt Log Raft Worker/Case Managemen: Discharge Planning, Patient/Family Counseling Dietitian/Musculoskeletal Physician Dietitian/Musculoskeletal Physician to monitor nutritional status and make changes and/or recommendations as needed and work with speech pathology on dietary upgrades as the occur. Physician IPOC Medical Issues being managed closely and that require the 24 hour availability of a physician: Postop anemia HTN Tachycardia Pancytopenia oral Thrush Tobaccoism [facility] code 08.2 Etiologic DX RT pathologic femur fracture of the femoral neck Medical Issues: DVT Prophylaxis, Falls Precautions, Fluid/Electrolyte/ Nutrition Balance, Infection Protection, Pain Management, Weight Bearing Precautions, Wound Care, Other (List) (as per above) Brief Synthesis of Preadmission Screen, Post-Admission Evaluation, and Therapy Evaluations:57 yo male with metastatic tonsillar CA with extensive involvement to lungs and bone who had RT hip surgery 12-30-17 for pathologic fracture rt femur referred here for ongoing therapies and care HAs a supportive mother who will assist him at home upon discharge Medical Prognosis: Good shortterm appears poor fpc declines hospice service Anticipated Length of Stay: 01-27-18 Maximize level of functional [place] prior to discharge to home with family taking into consideration his orthopedic and medical issues Anticipated d/c Destination: Home with his mother OSCAR SULLIVAN MD Jan 12, 2018 19:40
[2018-01-12] MEDS: POLYETHYLENE GLYCOL 17 GM (MIRALAX) PACK PO SCH (20:46)
[2018-01-13] MEDS: NYSTATIN ORAL SUSP 5 ML UDC PO SCH ×3 (04:18→17:22)
[2018-01-13] MEDS: HYDROcodone/APAP 10 MG/325 MG (LORTAB) TAB PO PRN ×3 (04:35→18:49)
[2018-01-13 05:35] VITALS: BP 154/94
[2018-01-13 07:57] VITALS: BP 134/81
[2018-01-13] MEDS: morphine ER 30 MG (MS CONTIN) TAB PO SCH ×2 (08:00→21:14)
[2018-01-13] MEDS: DOCUSATE SODIUM 100 MG (COLACE) CAP PO SCH ×2 (08:00→21:14)
[2018-01-13] MEDS: meTOprolol TARTRATE 25 MG (LOPRESSOR) TABLET PO SCH ×2 (08:00→21:14)
[2018-01-13] MEDS: CARVEDILOL 6.25 MG (COREG) TAB PO SCH ×2 (08:00→21:14)
--- NOTE | 2018-01-13 08:26 | Progress Note (SOAP) ---
Subjective Time Seen by a Provider: 08:24 Subjective/Events-last exam X-ray of the hips and pelvis negative. Patient wants pain pills before doing physical therapy. Patient cachectic. Patient a little down today Objective Exam Vital Signs Date Time Temp Pulse Resp B/P (MAP) Pulse Ox O2 Delivery O2 Flow Rate FiO2 01/13/18 07:57 106 134/81 (98) 96 Room Air 01/13/18 05:35 99.2 97 19 154/94 (114) 94 Room Air 01/12/18 20:40 Room Air 01/12/18 19:13 97.2 98 16 145/94 (111) 93 Room Air 01/12/18 09:00 Room Air I & O 01/13/18 07:00 Intake Total 850 ml Balance 850 ml Capillary Refill : Less Than 3 Seconds General Appearance: No Apparent Distress, Thin HEENT: Normal ENT Inspection Neck: Full Range of Motion Respiratory: No Accessory Muscle Use, No Respiratory Distress, Decreased Breath Sounds Cardiovascular: Regular Rate, Rhythm Assessment/Plan Assessment/Plan Assess & Plan/Chief Complaint Hip fracture Right arm fracture. Metastatic tonsillar cancer. Metastasis to bone and lung. COPD. Previous smoker. Previous drinker. . 01/08/18. Right hip fracture. Right arm fracture. Metastatic tonsillar cancer. Metastasis to bone and leg. COPD. Previous smoker and drinker. Patient states he had a good workout yesterday. Patient states he's eating well.. 01/12/18. Severe pain in both hips. Right hip fracture. Right arm fracture. Metastatic tonsillar cancer. Metastasis to bone and legs. COPD. Cachectic. Anemia. Hyponatremia. . 01/13/fainting. X-ray negative of hips and pelvis. Metastatic tonsillar cancer. Metastasis to bone and legs. COPD. Cachectic. Anemia Clinical Quality Measures DVT/VTE Risk/Contraindication: Risk Factor Score Per Nursin RFS Level Per Nursing on Admit: 4+=Very High OBED CHAU DO Jan 13, 2018 08:26
--- NOTE | 2018-01-13 11:57 | Physical Therapy Daily Note ---
PT Daily Note-Current Subjective Pt laying Supine in bed upon arrival. Pt rates 8/10 pain in hip. Pt agrees to limited PT due to pain at this time. Pt has already had pain med. Pain Numeric Pain Scale: 8 Location: Right, Left Location Body Site: Hip Pain Description: Ache, Stabbing Mental Status Patient Orientation: Person, Place, Time, Situation Attachments: Other-See Comments (R Sling) Transfers Functional [place] Measure 0=Not Assessed/NA 4=Minimal Assistance 1=Total Assistance 5=Supervision or Setup 2=Maximal Assistance 6=Modified [place] 3=Moderate Assistance 7=Complete IndependenceIRFPAI Quality Coding Scale 6 Independent with activity with or without an assistive device 5 Patient requires set up or clean up by helper. Patient completes activity by themselves 4 Supervision or touching assist (CGA). [place] provide cues , steadying assist 3 The helper provides less than half the effort to complete the activity 2 The helper provides more than half the effort to complete the activity 1 Dependent. The helper does all the effort to complete an activity 7 Patient refused to complete or attempt activity 9 The patient did not perform the activity before the current illness or injury 88 Not attempted due to Medical conditions or safety concerns Weight Bearing Right Lower Extremity: Right Weight Bearing/Tolerated Left Lower Extremity: Left Weight Bearing/Tolerated Non wt bearing RU LIMB Exercises Supine Ex: Ankle pumps, Quad Set, Glut sets, Heel Slides, Straight leg raise, Hip abd/add Supine Reps: 15 (2 sets) Treatments Pt completes Supine Ex in bed with several rest breaks. MANAGER MANUFACTURING & pt discuss pain management techniques to better control pain. Pt resting at end of tx with all needs met. Assessment Current Status: Poor Progress Pt seems depressed and pain is limiting participation. PT Travel Registered Nurse Icu Goals Travel Registered Nurse Icu Goals PT Travel Registered Nurse Icu Goals Time Frame: Feb 14, 2018 Transfers (B,C,W/C) (FIM): 6 Sit to Lying (QC): 6 Lying-Sitting on Side/Bed(QC): 6 Sit to Stand (QC): 6 Rollin Roll Left to Right (QC): 6 Chair/Wrg-zv-Eanqj Xfer(QC): 6 Car Transfer (QC): 6 Does the Patient Walk: Yes Gait (FIM): 6 Gait distance (FIM): 3=150 ft Distance: 150' Walk 10 feet (QC): 6 Walk 10ft-Uneven Surface(QC): 6 Walk 50ft with 2 Turns (QC): 6 Walk 150 ft (QC): 6 Gait Level of Assist: 6 Gait Assistive Device: Walker Mauricio Stairs (FIM): 2 # of Steps: 4 1 Step (curb) (QC): 5 4 Steps (QC): 5 12 Steps (QC): 9 Stairs Level Of Assist: 5 Picking up an Object (QC): 5 PT Plan Problem List Problem List: Activity Tolerance, Functional Strength, Safety, Balance, Gait, Transfer, Bed Mobility Treatment/Plan Treatment Plan: Continue Plan of Care Treatment Plan: Bed Mobility, Concurrent Therapy, Education, Functional Activity Gianfranco, Functional Strength, Group Therapy, Gait, Safety, Therapeutic Exercise, Transfers Treatment Duration: Feb 14, 2018 Frequency: At least 5 of 7 days/Wk (IRF) Estimated Hrs Per Day: 1.5 hours per day Patient and/or Family Agrees t: Yes Safety Risks/Education Patient Education: Transfer Techniques, Correct Positioning, Disease Process, Safety Issues Teaching Recipient: Patient Teaching Methods: Discussion Response to Teaching: Verbalize Understanding Time/GCodes Time In: 1015 Time Out: 1100 Total Billed Treatment Time: 45 Total Billed Treatment 1, FA (20m) & EX x2 (25m) G Codes Necessary: AJAY Blanco MANAGER MANUFACTURING Jan 13, 2018 11:57
[2018-01-13] MEDS: ENOXAPARIN 30 MG/0.3 ML (LOVENOX) SYR SC SCH (12:31)
--- NOTE | 2018-01-13 12:51 | Occupational Ther Daily Note ---
OT Current Status-Daily Note Subjective Pt alert, lying in bed. Pt c/o not feeling good anywhere, but agrees to therapy. Mental Status/Objective Patient Orientation: Person, Place, Time, Situation Functional [place] Measure 0=Not Assessed/NA 4=Minimal Assistance 1=Total Assistance 5=Supervision or Setup 2=Maximal Assistance 6=Modified [place] 3=Moderate Assistance 7=Complete [place] ADL-Treatment Supine to sitting EOB with SBA using HOB elevated and bed rails. Assisted maneuvering w/c to bathroom. Shampooed hair with recliner w/c, pt was able to wash head with L UE after set up. Assist to dry head. Pt washed face and hands and brushed teeth while sitting at sink. Able to get button shirt off with min assist and don button up shirt with min assist, verbal cues for modified tech. Able to get pants down to knees but unable to get them off feet. Unable to doff/don slipper socks initially then with verbal and physical cues pt able to doff with drsg stick. All limited by hip precautions. Pt educ use of dressing stick to doff/don pants. Pt washed arms, chest, abdomen, kb, bottom and upper legs, sponge bath with setup. Unable to reach below knees to wash due to hip precautions. Pt stood min assist and needed a little help to pull pants up over hip on R side. After therapy, pt lying in bed with call light/phone in reach. All needs met in room. Functional [place] Measure 0=Not Assessed/NA 4=Minimal Assistance 1=Total Assistance 5=Supervision or Setup 2=Maximal Assistance 6=Modified [place] 3=Moderate Assistance 7=Complete IndependenceIRFPAI Quality Coding Scale 6 Independent with activity with or without an assistive device 5 Patient requires set up or clean up by helper. Patient completes activity by themselves 4 Supervision or touching assist (CGA). [place] provide cues , steadying assist 3 The helper provides less than half the effort to complete the activity 2 The helper provides more than half the effort to complete the activity 1 Dependent. The helper does all the effort to complete an activity 7 Patient refused to complete or attempt activity 9 The patient did not perform the activity before the current illness or injury 88 Not attempted due to Medical conditions or safety concerns Grooming (FIM): 5 Oral Hygiene (QC): 5 Upper Body (FIM): 4 Upper Body Dressing (QC): 3 Lower Body Dressing (FIM): 3 Lower Body Dressing (QC): 3 On/Off Footwear (QC): 2 OT Short Term Goals Short Term Goals Eating(FIM): 6 Additional Short Term Goals: 1-Demonstrate ADL Tasks, 2-Verbalize Understanding , 3-ImproveStrength/Gianfranco 1=Demonstrate adherence to instructed precautions during ADL tasks. 2=Patient will verbalize/demonstrate understanding of assistive devices/ modifications for ADL. 3=Patient will improve strength/tolerance for activity to enable patient to perform ADL's. OT Fdc Goals Fdc Goals Time Frame: Jan 27, 2018 Eating (FIM): 6 Eating (QC): 6 Groomin Oral Hygiene (QC): 6 Bathing(FIM): 5 Shower/Bathe Self (QC): 5 Upper Body Dressing(FIM): 6 Upper Body Dressing (QC): 6 Lower Body Dressing(FIM): 5 Lower Body Dressing (QC): 5 On/Off Footwear (QC): 5 Toileting(FIM): 6 Toileting Hygiene (QC): 6 Toilet/Commode Transfer(FIM): 6 Toilet/Commode Transfer (QC): 6 Tub Transfer(FIM): 5 (or shower) Shower Transfer(FIM): 5 Additional Goals: 1-Demonstrate ADL Tasks, 2-Verbalize Understanding, 3- ImproveStrength/Gianfranco 1=Demonstrate adherence to instructed precautions during ADL tasks. 2=Patient will verbalize/demonstrate understanding of assistive devices/ modifications for ADL. 3=Patient will improve strength/tolerance for activity to enable patient to perform ADL's. OT Education/Plan Problem List/Assessment Pt would benefit from skilled OT to increase his independence in basic self car to allow him to safely return to his mother's home after discharge, with care home goal to return to his own home. Discharge Recommendations Plan/Recommendations: Continue POC Treatment Plan/Plan of Care Patient would benefit from OT for education, treatment and training to promote independence in ADL's, mobility, safety and/or upper extremity function for ADL' s. Plan of Care: ADL Retraining, Functional Mobility, Group Exercise/Act as Ind ( educaiton, exercise, activity tolerance, functional activities, socialization), UE Funct Exercise/Act, UE Neuromus Re-Ed/Coord, OTHER (energy conservation educaton) Treatment Duration: Jan 27, 2018 Frequency: Modified Program (IRF) Estimated Hrs Per Day: 1.5 hours per day Agreement: Yes Rehab Potential: Fair Time/GCodes Start Time: 09:00 Stop Time: 10:00 Total Time Billed (hr/min): 60 Billed Treatment Time 1 visit-ADL 4 (60 min) ZELDA JOHNSON Jan 13, 2018 12:51
--- NOTE | 2018-01-13 14:08 | Occupational Ther Daily Note ---
OT Current Status-Daily Note Subjective Pt alert, sitting in recliner. Pt very anxious, but could not identify one thing. Pt discussed his mother and that she has control of his things, taking sutures out, just not knowing what to do. Pt c/o pain, just had pain medications 1 prior to therapy. Mental Status/Objective Patient Orientation: Person, Place, Time, Situation Functional [place] Measure 0=Not Assessed/NA 4=Minimal Assistance 1=Total Assistance 5=Supervision or Setup 2=Maximal Assistance 6=Modified [place] 3=Moderate Assistance 7=Complete [place] ADL-Treatment Functional [place] Measure 0=Not Assessed/NA 4=Minimal Assistance 1=Total Assistance 5=Supervision or Setup 2=Maximal Assistance 6=Modified [place] 3=Moderate Assistance 7=Complete IndependenceIRFPAI Quality Coding Scale 6 Independent with activity with or without an assistive device 5 Patient requires set up or clean up by helper. Patient completes activity by themselves 4 Supervision or touching assist (CGA). [place] provide cues , steadying assist 3 The helper provides less than half the effort to complete the activity 2 The helper provides more than half the effort to complete the activity 1 Dependent. The helper does all the effort to complete an activity 7 Patient refused to complete or attempt activity 9 The patient did not perform the activity before the current illness or injury 88 Not attempted due to Medical conditions or safety concerns Other Treatment Pt c/o pain in lower back and side, MHP applied to area. L UE AROM completed for functional tasks. R shldr shrugs completed to increase AROM of R scapular region. After therapy, pt lying in bed with call light/phone in reach. All needs met in room. OT Short Term Goals Short Term Goals Eating(FIM): 6 Additional Short Term Goals: 1-Demonstrate ADL Tasks, 2-Verbalize Understanding , 3-ImproveStrength/Gianfranco 1=Demonstrate adherence to instructed precautions during ADL tasks. 2=Patient will verbalize/demonstrate understanding of assistive devices/ modifications for ADL. 3=Patient will improve strength/tolerance for activity to enable patient to perform ADL's. OT Longterm Goals Longterm Goals Time Frame: Jan 27, 2018 Eating (FIM): 6 Eating (QC): 6 Groomin Oral Hygiene (QC): 6 Bathing(FIM): 5 Shower/Bathe Self (QC): 5 Upper Body Dressing(FIM): 6 Upper Body Dressing (QC): 6 Lower Body Dressing(FIM): 5 Lower Body Dressing (QC): 5 On/Off Footwear (QC): 5 Toileting(FIM): 6 Toileting Hygiene (QC): 6 Toilet/Commode Transfer(FIM): 6 Toilet/Commode Transfer (QC): 6 Tub Transfer(FIM): 5 (or shower) Shower Transfer(FIM): 5 Additional Goals: 1-Demonstrate ADL Tasks, 2-Verbalize Understanding, 3- ImproveStrength/Gianfranco 1=Demonstrate adherence to instructed precautions during ADL tasks. 2=Patient will verbalize/demonstrate understanding of assistive devices/ modifications for ADL. 3=Patient will improve strength/tolerance for activity to enable patient to perform ADL's. OT Education/Plan Problem List/Assessment Pt would benefit from skilled OT to increase his independence in basic self car to allow him to safely return to his mother's home after discharge, with terminal carman goal to return to his own home. Discharge Recommendations Plan/Recommendations: Continue POC Treatment Plan/Plan of Care Patient would benefit from OT for education, treatment and training to promote independence in ADL's, mobility, safety and/or upper extremity function for ADL' s. Plan of Care: ADL Retraining, Functional Mobility, Group Exercise/Act as Ind ( educaiton, exercise, activity tolerance, functional activities, socialization), UE Funct Exercise/Act, UE Neuromus Re-Ed/Coord, OTHER (energy conservation educaton) Treatment Duration: Jan 27, 2018 Frequency: Modified Program (IRF) Estimated Hrs Per Day: 1.5 hours per day Agreement: Yes Rehab Potential: Fair Time/GCodes Start Time: 13:30 Stop Time: 14:00 Total Time Billed (hr/min): 30 Billed Treatment Time 1 visit-FA 2 (30 min) ZELDA JOHNSON Jan 13, 2018 14:08
--- NOTE | 2018-01-13 14:43 | PM & R (SOAP) Progress Note ---
Subjective This was a face to face visit with the patient. Date Seen by Provider: Jan 13, 2018 Time Seen by Provider: 07:35 Subjective/Events-last exam Patient was seen in his room this AM Patient MIN to mod assist for transfers Objective Physician Exam Last Set of Vital Signs Vital Signs Date Time Temp Pulse Resp B/P (MAP) Pulse Ox O2 Delivery O2 Flow Rate FiO2 01/13/18 09:04 Room Air 01/13/18 07:57 106 134/81 (98) 96 01/13/18 05:35 99.2 19 Capillary Refill : Less Than 3 Seconds I&O Intake and Output 01/13/18 00:00 Intake Total 950 ml Balance 950 ml Intake Oral 950 ml # Voids 9 # Bowel Movements 1 General: Alert, Oriented X3, Cooperative, No Acute Distress HEENT: Atraumatic, PERRLA, EOMI, Mucous Memb Moist/[place], Other (tongue pink and noncoated) Neck: Supple, No JVD Lungs: Clear to Auscultation Heart: Regular Rate Abdomen: Normal Bowel Sounds Extremities: No Edema Skin: Other (incision healing) Neuro: Other (RT arm in slingRT LE strength 3-/5 Left Lower limb 3+/5 grossly Strength FREDIS LIMB 4/5 Has silver holloware assembler strength RT Sensation decresed to touch in feet) Psych/Mental Status: Mental Status NL Results Lab Data Laboratory Tests 01/12/18 04:43: White Blood Count 9.8, Red Blood Count 3.01L, Hemoglobin 8.5L, Hematocrit 27L, Mean Corpuscular Volume 89, Mean Corpuscular Hemoglobin 28, Mean Corpuscular Hemoglobin Concent 32, Red Cell Distribution Width 14.7H, Platelet Count 433H, Mean Platelet Volume 7.9, Neutrophils (%) (Auto) 69, Lymphocytes (%) (Auto) 19, Monocytes (%) (Auto) 11, Eosinophils (%) (Auto) 1, Basophils (%) (Auto) 0, Neutrophils # (Auto) 6.8, Lymphocytes # (Auto) 1.8, Monocytes # (Auto) 1.1H, Eosinophils # (Auto) 0.1, Basophils # (Auto) 0.0, Sodium Level 131L, Potassium Level 4.2, Chloride Level 94L, Carbon Dioxide Level 25, Anion Gap 12, Blood Urea Nitrogen 8, Creatinine 0.56L, Estimat Glomerular Filtration Rate > 60, BUN/ Creatinine Ratio 14, Glucose Level 105, Calcium Level 9.7, Corrected Calcium 10.5H, Total Bilirubin 0.4, Aspartate Amino Transf (AST/SGOT) 28, Alanine Aminotransferase (ALT/SGPT) 13, Alkaline Phosphatase 111, Total Protein 6.0L, Albumin 3.0L Assessment/Plan Assessment and Plan RT pathologic fracture prox femur s/p repair Metastatic tonsillar CA with extensive involvement to lungs and bone Postop anemia Tachycardia resolved Hyponatremia improved Prior left hip surgery HTN with elevated S Blood pressure adjust meds as needed Severe calorie protein malnutrition HLD Oral Thrush treated recent HX of SC with CAD Tobaccoism abstaining Plan Continue PT/OT Team Conference tomorrow Co-Morbidities that are continuing to impact the rehab process: (include details ) OSCAR SULLIVAN MD Jan 13, 2018 14:43
--- NOTE | 2018-01-13 14:54 | Physical Therapy Daily Note ---
PT Daily Note-Current Subjective Pt laying Supine in bed upon arrival. Pt agrees to PT but reports nauseated and stomach discomfort along with pain in B hips. Pain Numeric Pain Scale: 8 Location: Right, Left Location Body Site: Hip Pain Description: Ache Mental Status Patient Orientation: Person, Place, Time, Situation Attachments: Other-See Comments (R sling for RUE) Transfers Functional [place] Measure 0=Not Assessed/NA 4=Minimal Assistance 1=Total Assistance 5=Supervision or Setup 2=Maximal Assistance 6=Modified [place] 3=Moderate Assistance 7=Complete IndependenceIRFPAI Quality Coding Scale 6 Independent with activity with or without an assistive device 5 Patient requires set up or clean up by helper. Patient completes activity by themselves 4 Supervision or touching assist (CGA). [place] provide cues , steadying assist 3 The helper provides less than half the effort to complete the activity 2 The helper provides more than half the effort to complete the activity 1 Dependent. The helper does all the effort to complete an activity 7 Patient refused to complete or attempt activity 9 The patient did not perform the activity before the current illness or injury 88 Not attempted due to Medical conditions or safety concerns Scootin Rollin Supine to/from Sit: 5 Sit to Lying (QC): 4 Weight Bearing Right Lower Extremity: Right Weight Bearing/Tolerated Left Lower Extremity: Left Weight Bearing/Tolerated Non wt bearing RU LIMB Exercises Supine Ex: Ankle pumps, Quad Set, Heel Slides, Straight leg raise, Hip abd/add Supine Reps: 15 Treatments Pt reports needing to change position upon arrival. Pt transfers fro Supine to EOB to practice Seated balance. Pt works on Seated balance for ~ 12m then transfers back to Supine in bed. Pt completes Supine Ex with several rest breaks. Pt rests at end of tx with all needs met. Assessment Current Status: Fair Progress Pain limits participation in tx. PT Barrel Liner Goals Barrel Liner Goals PT Barrel Liner Goals Time Frame: Feb 14, 2018 Transfers (B,C,W/C) (FIM): 6 Sit to Lying (QC): 6 Lying-Sitting on Side/Bed(QC): 6 Sit to Stand (QC): 6 Rollin Roll Left to Right (QC): 6 Chair/Cum-aa-Petff Xfer(QC): 6 Car Transfer (QC): 6 Does the Patient Walk: Yes Gait (FIM): 6 Gait distance (FIM): 3=150 ft Distance: 150' Walk 10 feet (QC): 6 Walk 10ft-Uneven Surface(QC): 6 Walk 50ft with 2 Turns (QC): 6 Walk 150 ft (QC): 6 Gait Level of Assist: 6 Gait Assistive Device: Walker Mauricio Stairs (FIM): 2 # of Steps: 4 1 Step (curb) (QC): 5 4 Steps (QC): 5 12 Steps (QC): 9 Stairs Level Of Assist: 5 Picking up an Object (QC): 5 PT Plan Problem List Problem List: Activity Tolerance, Functional Strength, Safety, Balance, Gait, Transfer, Bed Mobility Treatment/Plan Treatment Plan: Continue Plan of Care Treatment Plan: Bed Mobility, Concurrent Therapy, Education, Functional Activity Gianfranco, Functional Strength, Group Therapy, Gait, Safety, Therapeutic Exercise, Transfers Treatment Duration: Feb 14, 2018 Frequency: At least 5 of 7 days/Wk (IRF) Estimated Hrs Per Day: 1.5 hours per day Patient and/or Family Agrees t: Yes Safety Risks/Education Patient Education: Gait Training, Transfer Techniques, Correct Positioning, Safety Issues Teaching Recipient: Patient Teaching Methods: Discussion Response to Teaching: Verbalize Understanding Time/GCodes Time In: 1430 Time Out: 1515 Total Billed Treatment Time: 45 Total Billed Treatment 1, FA (20m) & EX x2 (25m) G Codes Necessary: AJAY Blanco TILESETTER Jan 13, 2018 14:54
[2018-01-13 16:00] VITALS: BP 123/86
[2018-01-13] MEDS: POLYETHYLENE GLYCOL 17 GM (MIRALAX) PACK PO SCH (21:14)
[2018-01-14] MEDS: NYSTATIN ORAL SUSP 5 ML UDC PO SCH ×5 (05:38→21:16)
[2018-01-14] MEDS: HYDROcodone/APAP 10 MG/325 MG (LORTAB) TAB PO PRN ×2 (05:41→19:58)
[2018-01-14 07:50] VITALS: BP 127/85
--- NOTE | 2018-01-14 08:22 | Progress Note (SOAP) ---
Subjective Time Seen by a Provider: 08:20 Subjective/Events-last exam Patient having hip pain. Hip fracture. Debility. Patient has metastasis Objective Exam Vital Signs Date Time Temp Pulse Resp B/P (MAP) Pulse Ox O2 Delivery O2 Flow Rate FiO2 01/14/18 07:50 97.0 96 16 127/85 (99) 95 Room Air 01/13/18 21:00 Room Air 01/13/18 16:00 97.1 95 16 123/86 (98) 95 Room Air 01/13/18 09:04 Room Air I & O 01/14/18 07:00 Intake Total 600 ml Balance 600 ml Capillary Refill : Less Than 3 Seconds General Appearance: No Apparent Distress, Thin HEENT: Normal ENT Inspection Neck: Full Range of Motion, Normal Inspection Respiratory: No Accessory Muscle Use, No Respiratory Distress, Decreased Breath Sounds Cardiovascular: Regular Rate, Rhythm, No Murmur Assessment/Plan Assessment/Plan Assess & Plan/Chief Complaint Hip fracture Right arm fracture. Metastatic tonsillar cancer. Metastasis to bone and lung. COPD. Previous smoker. Previous drinker. . 01/08/18. Right hip fracture. Right arm fracture. Metastatic tonsillar cancer. Metastasis to bone and leg. COPD. Previous smoker and drinker. Patient states he had a good workout yesterday. Patient states he's eating well.. 01/12/18. Severe pain in both hips. Right hip fracture. Right arm fracture. Metastatic tonsillar cancer. Metastasis to bone and legs. COPD. Cachectic. Anemia. Hyponatremia. . 01/13/fainting. X-ray negative of hips and pelvis. Metastatic tonsillar cancer. Metastasis to bone and legs. COPD. Cachectic. Anemia. . 01/14/18 metastatic tonsillar cancer. Metastasis to bone and legs. COPD. Cachectic. Anemia. Patient still hurting and hips Clinical Quality Measures DVT/VTE Risk/Contraindication: Risk Factor Score Per Nursin RFS Level Per Nursing on Admit: 4+=Very High OBED CHAU DO Jan 14, 2018 08:22
[2018-01-14] MEDS: morphine ER 30 MG (MS CONTIN) TAB PO SCH ×3 (08:37→19:58)
[2018-01-14] MEDS: DOCUSATE SODIUM 100 MG (COLACE) CAP PO SCH ×2 (08:38→19:58)
[2018-01-14] MEDS: meTOprolol TARTRATE 25 MG (LOPRESSOR) TABLET PO SCH ×2 (08:38→19:58)
[2018-01-14] MEDS: CARVEDILOL 6.25 MG (COREG) TAB PO SCH ×2 (08:38→19:58)
--- NOTE | 2018-01-14 09:01 | PM & R (SOAP) Progress Note ---
Subjective This was a face to face visit with the patient. Date Seen by Provider: Jan 14, 2018 Time Seen by Provider: 07:35 Subjective/Events-last exam Patient was seen in his room this AM patient min assist for transfers Objective Physician Exam Last Set of Vital Signs Vital Signs Date Time Temp Pulse Resp B/P (MAP) Pulse Ox O2 Delivery O2 Flow Rate FiO2 01/14/18 07:50 97.0 96 16 127/85 (99) 95 Room Air Capillary Refill : Less Than 3 Seconds I&O Intake and Output 01/14/18 00:00 Intake Total 460 ml Balance 460 ml Intake Oral 460 ml # Voids 6 # Bowel Movements 1 General: Alert, Oriented X3, Cooperative, No Acute Distress HEENT: Atraumatic, PERRLA, EOMI, Mucous Memb Moist/[place], Other (tongue pink and noncoated) Neck: Supple, No JVD Lungs: Clear to Auscultation Heart: Regular Rate Abdomen: Normal Bowel Sounds Extremities: No Edema Skin: Other (incision healing) Neuro: Other (RT arm in slingRT LE strength 3-/5 Left Lower limb 3+/5 grossly Strength FREDIS LIMB 4/5 Has honing machine operator production strength RT Sensation decresed to touch in feet) Psych/Mental Status: Mental Status NL Results Lab Data Laboratory Tests 01/12/18 04:43: White Blood Count 9.8, Red Blood Count 3.01L, Hemoglobin 8.5L, Hematocrit 27L, Mean Corpuscular Volume 89, Mean Corpuscular Hemoglobin 28, Mean Corpuscular Hemoglobin Concent 32, Red Cell Distribution Width 14.7H, Platelet Count 433H, Mean Platelet Volume 7.9, Neutrophils (%) (Auto) 69, Lymphocytes (%) (Auto) 19, Monocytes (%) (Auto) 11, Eosinophils (%) (Auto) 1, Basophils (%) (Auto) 0, Neutrophils # (Auto) 6.8, Lymphocytes # (Auto) 1.8, Monocytes # (Auto) 1.1H, Eosinophils # (Auto) 0.1, Basophils # (Auto) 0.0, Sodium Level 131L, Potassium Level 4.2, Chloride Level 94L, Carbon Dioxide Level 25, Anion Gap 12, Blood Urea Nitrogen 8, Creatinine 0.56L, Estimat Glomerular Filtration Rate > 60, BUN/ Creatinine Ratio 14, Glucose Level 105, Calcium Level 9.7, Corrected Calcium 10.5H, Total Bilirubin 0.4, Aspartate Amino Transf (AST/SGOT) 28, Alanine Aminotransferase (ALT/SGPT) 13, Alkaline Phosphatase 111, Total Protein 6.0L, Albumin 3.0L Assessment/Plan Assessment and Plan Rt pathologic fracture prox femur s/p repair Metastatic tonsillar CA with extensive involvement to lungs and bone Postop anemia Tachycardia resolved Hyponatremia improved Prior left hip surgery HTN better controlled Severe calorie malnutrition improving HLD Oral Thrush treated Recent HX of [place] with CAD Tobaccoism abstaining Plan Continue Pt/OT Team Conference later today see report for full functional update and POC and ELOS Co-Morbidities that are continuing to impact the rehab process: (include details ) OSCAR SULLIVAN MD Jan 14, 2018 09:01
--- NOTE | 2018-01-14 09:59 | Occupational Ther Daily Note ---
OT Current Status-Daily Note Subjective Pt alert, lying in bed. Pt c/o pain, stiffness and anxiety, nrsg in room to give medications. After encouragement pt agrees to therapy. Mental Status/Objective Patient Orientation: Person, Place, Time, Situation Functional [place] Measure 0=Not Assessed/NA 4=Minimal Assistance 1=Total Assistance 5=Supervision or Setup 2=Maximal Assistance 6=Modified [place] 3=Moderate Assistance 7=Complete [place] ADL-Treatment After encouragement pt agrees to shower. Supine to sitting EOB with SBA using HOB elevated and bed rails. Assisted maneuvering w/c to bathroom. After therapy, pt lying in bed with call light/phone in reach. All needs met in room. Functional [place] Measure 0=Not Assessed/NA 4=Minimal Assistance 1=Total Assistance 5=Supervision or Setup 2=Maximal Assistance 6=Modified [place] 3=Moderate Assistance 7=Complete IndependenceIRFPAI Quality Coding Scale 6 Independent with activity with or without an assistive device 5 Patient requires set up or clean up by helper. Patient completes activity by themselves 4 Supervision or touching assist (CGA). [place] provide cues , steadying assist 3 The helper provides less than half the effort to complete the activity 2 The helper provides more than half the effort to complete the activity 1 Dependent. The helper does all the effort to complete an activity 7 Patient refused to complete or attempt activity 9 The patient did not perform the activity before the current illness or injury 88 Not attempted due to Medical conditions or safety concerns Grooming (FIM): 6 (Sitting at sink, pt able to complete.) Oral Hygiene (QC): 6 Bathing (FIM): 2 (Using grabbars, shower bench, hand held shower and long handle sponge pt completed shower. Pt held onto grabbars and sat on bench with head on grabbars. Pt bathed face, chest, abdomen and kb area. Assist for all other areas due to decreased activity tolerance.) Bathing Location: Chest, Abdomen, Perineal Area Shower/Bathe Self (QC): 2 Upper Body (FIM): 3 (Pt requires a lot of encouragement to don/doff clothing by self. Verbal and physical cues needed to guide.) Upper Body Dressing (QC): 3 Lower Body Dressing (FIM): 2 (Pt requires a lot of encouragement to don/doff clothing by self. Verbal and physical cues needed to guide. Requires encouragement to use AE.) Lower Body Dressing (QC): 2 Shower Transfer(FIM): 3 (Mod A for sit to stand then uses grabbar and shower bench to STP with CGA.) OT Short Term Goals Short Term Goals Eating(FIM): 6 Additional Short Term Goals: 1-Demonstrate ADL Tasks, 2-Verbalize Understanding , 3-ImproveStrength/Gianfranco 1=Demonstrate adherence to instructed precautions during ADL tasks. 2=Patient will verbalize/demonstrate understanding of assistive devices/ modifications for ADL. 3=Patient will improve strength/tolerance for activity to enable patient to perform ADL's. OT Residential Goals Copy Preparer Goals Time Frame: Jan 27, 2018 Eating (FIM): 6 Eating (QC): 6 Groomin Oral Hygiene (QC): 6 Bathing(FIM): 5 Shower/Bathe Self (QC): 5 Upper Body Dressing(FIM): 6 Upper Body Dressing (QC): 6 Lower Body Dressing(FIM): 5 Lower Body Dressing (QC): 5 On/Off Footwear (QC): 5 Toileting(FIM): 6 Toileting Hygiene (QC): 6 Toilet/Commode Transfer(FIM): 6 Toilet/Commode Transfer (QC): 6 Tub Transfer(FIM): 5 (or shower) Shower Transfer(FIM): 5 Additional Goals: 1-Demonstrate ADL Tasks, 2-Verbalize Understanding, 3- ImproveStrength/Gianfranco 1=Demonstrate adherence to instructed precautions during ADL tasks. 2=Patient will verbalize/demonstrate understanding of assistive devices/ modifications for ADL. 3=Patient will improve strength/tolerance for activity to enable patient to perform ADL's. OT Education/Plan Problem List/Assessment Pt would benefit from skilled OT to increase his independence in basic self car to allow him to safely return to his mother's home after discharge, with termite treater goal to return to his own home. Discharge Recommendations Plan/Recommendations: Continue POC Treatment Plan/Plan of Care Patient would benefit from OT for education, treatment and training to promote independence in ADL's, mobility, safety and/or upper extremity function for ADL' s. Plan of Care: ADL Retraining, Functional Mobility, Group Exercise/Act as Ind ( educaiton, exercise, activity tolerance, functional activities, socialization), UE Funct Exercise/Act, UE Neuromus Re-Ed/Coord, OTHER (energy conservation educaton) Treatment Duration: Jan 27, 2018 Frequency: Modified Program (IRF) Estimated Hrs Per Day: 1.5 hours per day Agreement: Yes Rehab Potential: Fair Time/GCodes Start Time: 08:30 Stop Time: 10:00 Total Time Billed (hr/min): 90 Billed Treatment Time 1 visit-ADL 6 (90 min) ZELDA JOHNSON Jan 14, 2018 09:59
--- NOTE | 2018-01-14 12:03 | Physical Therapy Daily Note ---
PT Daily Note-Current Subjective Pt sitting in recliner upon arrival. Pt reports not being able to get comfortable no matter where he is sitting. Pt agrees to limited PT because of pain. Pain Numeric Pain Scale: 8 Location: Right, Left Location Body Site: Hip Pain Description: Ache Mental Status Patient Orientation: Person, Place Transfers Functional [place] Measure 0=Not Assessed/NA 4=Minimal Assistance 1=Total Assistance 5=Supervision or Setup 2=Maximal Assistance 6=Modified [place] 3=Moderate Assistance 7=Complete IndependenceIRFPAI Quality Coding Scale 6 Independent with activity with or without an assistive device 5 Patient requires set up or clean up by helper. Patient completes activity by themselves 4 Supervision or touching assist (CGA). [place] provide cues , steadying assist 3 The helper provides less than half the effort to complete the activity 2 The helper provides more than half the effort to complete the activity 1 Dependent. The helper does all the effort to complete an activity 7 Patient refused to complete or attempt activity 9 The patient did not perform the activity before the current illness or injury 88 Not attempted due to Medical conditions or safety concerns Scootin Sit to/from Stand: 4 Sit to Stand (QC): 4 Weight Bearing Right Lower Extremity: Right Weight Bearing/Tolerated Left Lower Extremity: Left Weight Bearing/Tolerated Non wt bearing RU LIMB Exercises Supine Ex: Ankle pumps, Quad Set, Glut sets, Straight leg raise Supine Reps: 15 Seated Therapy Exercises: Ankle pumps, Long arc quads, Hip flexion, Kicking activity Seated Reps: 15 Treatments Pt completes Supine & Seated Ex in recliner with rest breaks for fatigue & pain. Pt transfers from recliner to EOB using SBQC at close SBA. FORMING MACHINE TENDER assists with help positioning both in recliner & later Supine in bed. FORMING MACHINE TENDER & pt go over pt education items such as home support, whether pt feels he can continue to complete 3 hrs of Therapy as needed for ARU and what might be a good use of pt' s energy and toleration of pain. Pt resting at end of tx with all needs met. Assessment Current Status: Poor Progress Pt fatigues easily & high level of pain with activity. PT Halfway Goals Bander And Cellophaner Machine Helper Goals PT Bander And Cellophaner Machine Helper Goals Time Frame: Feb 14, 2018 Transfers (B,C,W/C) (FIM): 6 Sit to Lying (QC): 6 Lying-Sitting on Side/Bed(QC): 6 Sit to Stand (QC): 6 Rollin Roll Left to Right (QC): 6 Chair/Sug-zf-Gnajg Xfer(QC): 6 Car Transfer (QC): 6 Does the Patient Walk: Yes Gait (FIM): 6 Gait distance (FIM): 3=150 ft Distance: 150' Walk 10 feet (QC): 6 Walk 10ft-Uneven Surface(QC): 6 Walk 50ft with 2 Turns (QC): 6 Walk 150 ft (QC): 6 Gait Level of Assist: 6 Gait Assistive Device: Walker Mauricio Stairs (FIM): 2 # of Steps: 4 1 Step (curb) (QC): 5 4 Steps (QC): 5 12 Steps (QC): 9 Stairs Level Of Assist: 5 Picking up an Object (QC): 5 PT Plan Problem List Problem List: Activity Tolerance, Functional Strength, Safety, Balance, Gait, Transfer Treatment/Plan Treatment Plan: Continue Plan of Care Treatment Plan: Bed Mobility, Concurrent Therapy, Education, Functional Activity Gianfranco, Functional Strength, Group Therapy, Gait, Safety, Therapeutic Exercise, Transfers Treatment Duration: Feb 14, 2018 Frequency: At least 5 of 7 days/Wk (IRF) Estimated Hrs Per Day: 1.5 hours per day Patient and/or Family Agrees t: Yes Safety Risks/Education Patient Education: Transfer Techniques, Correct Positioning, Safety Issues Teaching Recipient: Patient Teaching Methods: Discussion Response to Teaching: Verbalize Understanding Time/GCodes Time In: 1000 Time Out: 1100 Total Billed Treatment Time: 60 Total Billed Treatment 1, FA x2 (30m) & EX x2 (30m) G Codes Necessary: AJAY Blanco PTA Jan 14, 2018 12:03
[2018-01-14] MEDS: ENOXAPARIN 30 MG/0.3 ML (LOVENOX) SYR SC SCH (13:27)
--- NOTE | 2018-01-14 16:03 | Physical Therapy Daily Note ---
PT Daily Note-Current Subjective Pt laying Supine in bed upon arrival. Pt agrees to PT. Pain Numeric Pain Scale: 8 Location: Right, Left Location Body Site: Hip Pain Description: Ache Comment: Based on facial grimaces with movement & Ex Mental Status Patient Orientation: Person, Confused, Place Transfers Functional [place] Measure 0=Not Assessed/NA 4=Minimal Assistance 1=Total Assistance 5=Supervision or Setup 2=Maximal Assistance 6=Modified [place] 3=Moderate Assistance 7=Complete IndependenceIRFPAI Quality Coding Scale 6 Independent with activity with or without an assistive device 5 Patient requires set up or clean up by helper. Patient completes activity by themselves 4 Supervision or touching assist (CGA). [place] provide cues , steadying assist 3 The helper provides less than half the effort to complete the activity 2 The helper provides more than half the effort to complete the activity 1 Dependent. The helper does all the effort to complete an activity 7 Patient refused to complete or attempt activity 9 The patient did not perform the activity before the current illness or injury 88 Not attempted due to Medical conditions or safety concerns Scootin Weight Bearing Right Lower Extremity: Right Weight Bearing/Tolerated Left Lower Extremity: Left Weight Bearing/Tolerated Non wt bearing RU LIMB Exercises Supine Ex: Ankle pumps, Quad Set, Hip abd/add Supine Reps: 15 Treatments Pt completes Supine Ex with several rest breaks for pain & fatigue. Pt rests at end of tx with all needs met. Assessment Current Status: Poor Progress Pt demonstrates increased pain with movement & Nursing notified. PT Nursing Home Goals Nursing Home Goals PT Nursing Home Goals Time Frame: Feb 14, 2018 Transfers (B,C,W/C) (FIM): 6 Sit to Lying (QC): 6 Lying-Sitting on Side/Bed(QC): 6 Sit to Stand (QC): 6 Rollin Roll Left to Right (QC): 6 Chair/Pyf-hx-Pdrtp Xfer(QC): 6 Car Transfer (QC): 6 Does the Patient Walk: Yes Gait (FIM): 6 Gait distance (FIM): 3=150 ft Distance: 150' Walk 10 feet (QC): 6 Walk 10ft-Uneven Surface(QC): 6 Walk 50ft with 2 Turns (QC): 6 Walk 150 ft (QC): 6 Gait Level of Assist: 6 Gait Assistive Device: Walker Mauricio Stairs (FIM): 2 # of Steps: 4 1 Step (curb) (QC): 5 4 Steps (QC): 5 12 Steps (QC): 9 Stairs Level Of Assist: 5 Picking up an Object (QC): 5 PT Plan Problem List Problem List: Activity Tolerance, Functional Strength, Safety, Balance, Gait, Transfer, Bed Mobility Treatment/Plan Treatment Plan: Continue Plan of Care Treatment Plan: Bed Mobility, Concurrent Therapy, Education, Functional Activity Gianfranco, Functional Strength, Group Therapy, Gait, Safety, Therapeutic Exercise, Transfers Treatment Duration: Feb 14, 2018 Frequency: At least 5 of 7 days/Wk (IRF) Estimated Hrs Per Day: 1.5 hours per day Patient and/or Family Agrees t: Yes Safety Risks/Education Patient Education: Correct Positioning, Safety Issues Teaching Recipient: Patient Teaching Methods: Discussion Response to Teaching: Reinforcement Needed Time/GCodes Time In: 1430 Time Out: 1500 Total Billed Treatment Time: 30 Total Billed Treatment 1, EX (15m) & FA (15m) G Codes Necessary: AJAY Blanco SECOND HELPER Jan 14, 2018 16:03
[2018-01-14 18:50] VITALS: BP 177/90
[2018-01-14] MEDS: POLYETHYLENE GLYCOL 17 GM (MIRALAX) PACK PO SCH (19:59)
[2018-01-15] MEDS: HYDROcodone/APAP 10 MG/325 MG (LORTAB) TAB PO PRN ×2 (04:51→08:38)
[2018-01-15 05:57] VITALS: BP 147/96
[2018-01-15] MEDS: NYSTATIN ORAL SUSP 5 ML UDC PO SCH ×3 (07:29→23:36)
[2018-01-15] MEDS: morphine ER 30 MG (MS CONTIN) TAB PO SCH ×3 (07:48→21:02)
[2018-01-15] MEDS: CARVEDILOL 6.25 MG (COREG) TAB PO SCH ×2 (07:49→21:02)
[2018-01-15] MEDS: meTOprolol TARTRATE 25 MG (LOPRESSOR) TABLET PO SCH ×2 (07:49→21:02)
[2018-01-15] MEDS: DOCUSATE SODIUM 100 MG (COLACE) CAP PO SCH ×2 (07:49→21:02)
--- NOTE | 2018-01-15 08:16 | PM & R (SOAP) Progress Note ---
Subjective This was a face to face visit with the patient. Date Seen by Provider: Jan 15, 2018 Time Seen by Provider: 07:30 Subjective/Events-last exam Patient was seen in his room this AM Patient SBA for transfers Objective Physician Exam Last Set of Vital Signs Vital Signs Date Time Temp Pulse Resp B/P (MAP) Pulse Ox O2 Delivery O2 Flow Rate FiO2 01/15/18 05:57 97.9 96 16 147/96 (113) 94 Room Air Capillary Refill : Less Than 3 Seconds I&O Intake and Output 01/15/18 00:00 Intake Total 720 ml Balance 720 ml Intake Oral 720 ml # Voids 6 # Bowel Movements 2 General: Alert, Oriented X3, Cooperative, No Acute Distress HEENT: Atraumatic, PERRLA, EOMI, Mucous Memb Moist/[place], Other (tongue pink and noncoated) Neck: Supple, No JVD Lungs: Clear to Auscultation Heart: Regular Rate Abdomen: Normal Bowel Sounds Extremities: No Edema Skin: Other (incision healing) Neuro: Other (RT arm in slingRT LE strength 3-/5 Left Lower limb 3+/5 grossly Strength FREDIS LIMB 4/5 Has auditor/quality strength RT Sensation decresed to touch in feet) Psych/Mental Status: Mental Status NL Assessment/Plan Assessment and Plan Path fracture rt prox femur s/p repair Metastatic tonsillar ca with extensive involvement to lungs and bone Postop anemia Tachycardia resolved Hyponatremia improved Prior left hip surgery HTN better controlled Severe calorie malnutrition improving HLD Oral thrush treated recent HX of [place] with CAD Tobaccoism abstaining Plan Continue PT/OT SW in to speak with patients mother and stepfather yesterday re discharge plans Team Conference held yesterday-see report for full functional update and POC and ELOS Co-Morbidities that are continuing to impact the rehab process: (include details ) OSCAR SULLIVAN MD Jan 15, 2018 08:16
--- NOTE | 2018-01-15 08:39 | Progress Note (SOAP) ---
Subjective Time Seen by a Provider: 08:37 Subjective/Events-last exam Patient in more pain today. To increase the morphine. Patient to be discharged home soon with mother and step father. Patient to go on hospice Objective Exam Vital Signs Date Time Temp Pulse Resp B/P (MAP) Pulse Ox O2 Delivery O2 Flow Rate FiO2 01/15/18 08:15 Room Air 01/15/18 05:57 97.9 96 16 147/96 (113) 94 Room Air 01/14/18 20:00 Room Air 01/14/18 18:50 99.2 111 16 177/90 (119) 94 Room Air 01/14/18 09:00 95 Room Air I & O 01/15/18 07:00 Intake Total 660 ml Balance 660 ml Capillary Refill : Less Than 3 Seconds General Appearance: No Apparent Distress, Thin HEENT: Normal ENT Inspection Respiratory: No Accessory Muscle Use, No Respiratory Distress, Decreased Breath Sounds Cardiovascular: Regular Rate, Rhythm Assessment/Plan Assessment/Plan Assess & Plan/Chief Complaint Hip fracture Right arm fracture. Metastatic tonsillar cancer. Metastasis to bone and lung. COPD. Previous smoker. Previous drinker. . 01/08/18. Right hip fracture. Right arm fracture. Metastatic tonsillar cancer. Metastasis to bone and leg. COPD. Previous smoker and drinker. Patient states he had a good workout yesterday. Patient states he's eating well.. 01/12/18. Severe pain in both hips. Right hip fracture. Right arm fracture. Metastatic tonsillar cancer. Metastasis to bone and legs. COPD. Cachectic. Anemia. Hyponatremia. . 01/13/fainting. X-ray negative of hips and pelvis. Metastatic tonsillar cancer. Metastasis to bone and legs. COPD. Cachectic. Anemia. . 01/14/18 metastatic tonsillar cancer. Metastasis to bone and legs. COPD. Cachectic. Anemia. Patient still hurting and hips. . 01/15/18. Metastatic tonsillar cancer. Metastasis to bone and legs. Hip pain. COPD. Cachectic. Anemia. Patient having more pain Clinical Quality Measures DVT/VTE Risk/Contraindication: Risk Factor Score Per Nursin RFS Level Per Nursing on Admit: 4+=Very High OBED CHAU DO Jan 15, 2018 08:39
--- NOTE | 2018-01-15 10:54 | Occupational Ther Daily Note ---
OT Current Status-Daily Note Subjective Pt lying in bed sleeping, difficult to wake, shook gently and called name. Pt lethargic initially then would fall asleep quickly. Pt did agree to therapy, stating I will do as much as I can, but it probably won't be much. Pt had pain meds prior to therapy, but stated that R shldr continues to hurt. Mental Status/Objective Patient Orientation: Person, Place, Situation Functional [place] Measure 0=Not Assessed/NA 4=Minimal Assistance 1=Total Assistance 5=Supervision or Setup 2=Maximal Assistance 6=Modified [place] 3=Moderate Assistance 7=Complete [place] ADL-Treatment Pt stated that he is tired and he will be going home tomorrow. Pt agreed to sponge bath in bed. Pt did not want to change clothing. Pt did not want to get out of bed due to decreased activity tolerance and increased fatigue. Pt would ask how or what to do next, had difficulty problem solving sequence of task. MICHEL handed pt cleansing cloth and pt asked 3x's what to do with it. Pt assisted R UE with L UE to wash face, upper body and kb area/buttocks lying in supine. Pt started falling asleep after this and asked if he could stop. MICHEL offered to assist pt up to use bathroom or get anything for him to eat and pt closed eyes to fall asleep and answered not until later. Pt is able to assist to scoot self up in bed with bed tilted head down. After therapy, pt lying in with call light/phone in reach. All needs met in room. Functional [place] Measure 0=Not Assessed/NA 4=Minimal Assistance 1=Total Assistance 5=Supervision or Setup 2=Maximal Assistance 6=Modified [place] 3=Moderate Assistance 7=Complete IndependenceIRFPAI Quality Coding Scale 6 Independent with activity with or without an assistive device 5 Patient requires set up or clean up by helper. Patient completes activity by themselves 4 Supervision or touching assist (CGA). [place] provide cues , steadying assist 3 The helper provides less than half the effort to complete the activity 2 The helper provides more than half the effort to complete the activity 1 Dependent. The helper does all the effort to complete an activity 7 Patient refused to complete or attempt activity 9 The patient did not perform the activity before the current illness or injury 88 Not attempted due to Medical conditions or safety concerns Bathing (FIM): 3 Bathing Location: L Arm, R Arm, Chest, Abdomen, Buttocks, Perineal Area Shower/Bathe Self (QC): 3 Pt takes increased time to complete minimal ADL tasks due to fatigue and decreased activity tolerance. OT Short Term Goals Short Term Goals Eating(FIM): 6 Additional Short Term Goals: 1-Demonstrate ADL Tasks, 2-Verbalize Understanding , 3-ImproveStrength/Gianfranco 1=Demonstrate adherence to instructed precautions during ADL tasks. 2=Patient will verbalize/demonstrate understanding of assistive devices/ modifications for ADL. 3=Patient will improve strength/tolerance for activity to enable patient to perform ADL's. OT Stock Clerk Self Service Store Goals Stock Clerk Self Service Store Goals Time Frame: Jan 27, 2018 Eating (FIM): 6 Eating (QC): 6 Groomin Oral Hygiene (QC): 6 Bathing(FIM): 5 Shower/Bathe Self (QC): 5 Upper Body Dressing(FIM): 6 Upper Body Dressing (QC): 6 Lower Body Dressing(FIM): 5 Lower Body Dressing (QC): 5 On/Off Footwear (QC): 5 Toileting(FIM): 6 Toileting Hygiene (QC): 6 Toilet/Commode Transfer(FIM): 6 Toilet/Commode Transfer (QC): 6 Tub Transfer(FIM): 5 (or shower) Shower Transfer(FIM): 5 Additional Goals: 1-Demonstrate ADL Tasks, 2-Verbalize Understanding, 3- ImproveStrength/Gianfranco 1=Demonstrate adherence to instructed precautions during ADL tasks. 2=Patient will verbalize/demonstrate understanding of assistive devices/ modifications for ADL. 3=Patient will improve strength/tolerance for activity to enable patient to perform ADL's. OT Education/Plan Problem List/Assessment Pt would benefit from skilled OT to increase his independence in basic self car to allow him to safely return to his mother's home after discharge, with termite control service representative goal to return to his own home. Discharge Recommendations Plan/Recommendations: Continue POC Treatment Plan/Plan of Care Patient would benefit from OT for education, treatment and training to promote independence in ADL's, mobility, safety and/or upper extremity function for ADL' s. Plan of Care: ADL Retraining, Functional Mobility, Group Exercise/Act as Ind ( educaiton, exercise, activity tolerance, functional activities, socialization), UE Funct Exercise/Act, UE Neuromus Re-Ed/Coord, OTHER (energy conservation educaton) Treatment Duration: Jan 27, 2018 Frequency: Modified Program (IRF) Estimated Hrs Per Day: 1.5 hours per day Agreement: Yes Rehab Potential: Fair Time/GCodes Start Time: 10:00 Stop Time: 10:40 Total Time Billed (hr/min): 40 Billed Treatment Time 1 visit-ADL 3 (40 min) ZELDA JOHNSON Jan 15, 2018 10:54
--- NOTE | 2018-01-15 11:21 | Physical Therapy Progress Note ---
Therapy Progress Note Pt is laying Supine in bed upon arrival. Pt reports pain at 10/10 throughout his body. Nursing has given pain med ~30 mins previous but has not taken affect yet. Pt also reports not being able to complete any PT at this time due to pain. Pt does eventually attempt Supine Ex in bed but is limited due to pain. Pt completes AP, QS, HS with frequent rest breaks due to pain/discomfort and needing to reposition. Pt resting at end of tx with all needs met. PT will check on pt again later this morning. Time In: 900, Time Out: 932, Total Time: 32m 1, EX (20m) & FA (12m) AJAY LUZ MANAGER DELI Jan 15, 2018 11:21
--- NOTE | 2018-01-15 12:33 | Physical Therapy Progress Note ---
Therapy Progress Note PT attempted another to finish morning visit but pt declines citing too weak to attempt right now. Pt also cites pain and needing rest. Pt to discharge tomorrow due to declining status. 1, refusal (1100) AJAY LUZ COMPOSING ROOM MACHINIST APPRENTICE Jan 15, 2018 12:33
[2018-01-15] MEDS: ENOXAPARIN 30 MG/0.3 ML (LOVENOX) SYR SC SCH (12:56)
[2018-01-15] MEDS ORDERED: CARV6.252 PO (14:11)
[2018-01-15] MEDS ORDERED: MORP-34 PO (14:11)
[2018-01-15] MEDS ORDERED: MORP15TA PO (14:11)
[2018-01-15] MEDS ORDERED: METO-333 PO (14:11)
--- NOTE | 2018-01-15 14:57 | Therapy Group Daily Note ---
Therapy Daily Group Note Patient Education Topic Home Safety Other/Notes Pt was transported via w/c to OT/PT group in therapy gym. Group consisted of introductions (name, place living, favorite season), socialization, ARU description/expectations. Pt introduced self appropriately and actively listened to peers. Pt contributed to conversations and interacted with peers throughout group. Pt requested to use toilet. Due to decreased activity tolerance, increased fatigue and pain pt unable to finish group. Reported to nrsg and nrsg took over care. Call light/phone in reach. All needs met in room. Start Time: 13:00 Stop Time: 13:40 Total Billed Treatment Time: 40 Total Billed Treatment 1-GRP ZELDA JOHNSON Jan 15, 2018 14:57
[2018-01-15 17:43] VITALS: BP 138/86
[2018-01-15] MEDS: morphine IMMEDIATE RELEASE 15 MG TABLET PO PRN (19:13)
[2018-01-15] MEDS: POLYETHYLENE GLYCOL 17 GM (MIRALAX) PACK PO SCH (21:02)
[2018-01-16] MEDS: morphine IMMEDIATE RELEASE 15 MG TABLET PO PRN ×2 (04:03→10:31)
[2018-01-16 04:28] VITALS: BP 134/96
[2018-01-16] MEDS: morphine ER 30 MG (MS CONTIN) TAB PO SCH (05:04)
[2018-01-16] MEDS: NYSTATIN ORAL SUSP 5 ML UDC PO SCH (06:08)
[2018-01-16] MEDS: meTOprolol TARTRATE 25 MG (LOPRESSOR) TABLET PO SCH (08:21)
[2018-01-16] MEDS: CARVEDILOL 6.25 MG (COREG) TAB PO SCH (08:21)
[2018-01-16] MEDS: DOCUSATE SODIUM 100 MG (COLACE) CAP PO SCH (08:21)
--- NOTE | 2018-01-16 08:21 | Progress Note (SOAP) ---
Subjective Time Seen by a Provider: 08:15 Subjective/Events-last exam Pain is much better today with change in pain medications. Patient states he only has a little bit Objective Exam Vital Signs Date Time Temp Pulse Resp B/P (MAP) Pulse Ox O2 Delivery O2 Flow Rate FiO2 01/16/18 04:28 97.8 92 18 134/96 (109) 95 Room Air 01/15/18 21:51 Room Air 01/15/18 17:43 98.0 90 16 138/86 (103) 95 Room Air I & O 01/16/18 07:00 Intake Total 590 ml Balance 590 ml Capillary Refill : Less Than 3 Seconds General Appearance: No Apparent Distress, Thin HEENT: Normal ENT Inspection Respiratory: No Accessory Muscle Use, No Respiratory Distress, Decreased Breath Sounds Cardiovascular: Regular Rate, Rhythm, No Murmur Gastrointestinal: non tender Assessment/Plan Assessment/Plan Assess & Plan/Chief Complaint Hip fracture Right arm fracture. Metastatic tonsillar cancer. Metastasis to bone and lung. COPD. Previous smoker. Previous drinker. . 01/08/18. Right hip fracture. Right arm fracture. Metastatic tonsillar cancer. Metastasis to bone and leg. COPD. Previous smoker and drinker. Patient states he had a good workout yesterday. Patient states he's eating well.. 01/12/18. Severe pain in both hips. Right hip fracture. Right arm fracture. Metastatic tonsillar cancer. Metastasis to bone and legs. COPD. Cachectic. Anemia. Hyponatremia. . 01/13/fainting. X-ray negative of hips and pelvis. Metastatic tonsillar cancer. Metastasis to bone and legs. COPD. Cachectic. Anemia. . 01/14/18 metastatic tonsillar cancer. Metastasis to bone and legs. COPD. Cachectic. Anemia. Patient still hurting and hips. . 01/15/18. Metastatic tonsillar cancer. Metastasis to bone and legs. Hip pain. COPD. Cachectic. Anemia. Patient having more pain. . 01/16/18. Metastatic tonsillar cancer. Metastasis to bone and legs. Hip pain. Patient put on different pain medications and it's working. Clinical Quality Measures DVT/VTE Risk/Contraindication: Risk Factor Score Per Nursin RFS Level Per Nursing on Admit: 4+=Very High OBED CHAU DO Jan 16, 2018 08:21
--- NOTE | 2018-01-16 09:06 | PM & R (SOAP) Progress Note ---
Subjective This was a face to face visit with the patient. Date Seen by Provider: Jan 16, 2018 Time Seen by Provider: 07:50 Subjective/Events-last exam Patient was seen in his room this AM After SW discussed case with patient and his family yesterday they have agreed to discharge to home with hospice services today. Date Identified: Jan 16, 2018 Time Identified: 08:00 Medication Intervention: Discharge/Pain meds reviewed and provided Objective Physician Exam Last Set of Vital Signs Vital Signs Date Time Temp Pulse Resp B/P (MAP) Pulse Ox O2 Delivery O2 Flow Rate FiO2 01/16/18 04:28 97.8 92 18 134/96 (109) 95 Room Air Capillary Refill : Less Than 3 Seconds I&O Intake and Output 01/16/18 00:00 Intake Total 530 ml Balance 530 ml Intake Oral 530 ml # Voids 6 General: Alert, Oriented X3, Cooperative, No Acute Distress HEENT: Atraumatic, PERRLA, EOMI, Mucous Memb Moist/[place], Other (tongue pink and noncoated) Neck: Supple, No JVD Lungs: Clear to Auscultation Heart: Regular Rate Abdomen: Normal Bowel Sounds Extremities: No Edema Skin: Other (incision healing) Neuro: Other (RT arm in slingRT LE strength 3-/5 Left Lower limb 3+/5 grossly Strength FREDIS LIMB 4/5 Has waterworks operator strength RT Sensation decresed to touch in feet) Psych/Mental Status: Mental Status NL Assessment/Plan Assessment and Plan Home today with family and hospice services F/U with PCP or hospice physician and ortho see orders Co-Morbidities that are continuing to impact the rehab process: (include details ) OSCAR SULLIVAN MD Jan 16, 2018 09:06
--- NOTE | 2018-01-16 10:57 | Physical Therapy Daily Note ---
PT Daily Note-Current Subjective Pt. and parents present for functional safety and handling education before DC. Pt. c/o pain at 9/10 pain in back and legs and abdomen, furrowed brow and poor ability to concentrate and express himself. Upon this PROJ ENGINEER introducing self and stating the purpose for Rx to parents they adamantly state they have handled their son for months at home and they are totally comfortable to do so now. State they decline a hosp bed etc. Pain Numeric Pain Scale: 9 Location: Medial Location Body Site: Back Pain Description: Pressure Appearance pale, furrowed brow, very thin ,very frail Mental Status Patient Orientation: Confused unable to complete thoughts or requests , Transfers Functional [place] Measure 0=Not Assessed/NA 4=Minimal Assistance 1=Total Assistance 5=Supervision or Setup 2=Maximal Assistance 6=Modified [place] 3=Moderate Assistance 7=Complete IndependenceIRFPAI Quality Coding Scale 6 Independent with activity with or without an assistive device 5 Patient requires set up or clean up by helper. Patient completes activity by themselves 4 Supervision or touching assist (CGA). [place] provide cues , steadying assist 3 The helper provides less than half the effort to complete the activity 2 The helper provides more than half the effort to complete the activity 1 Dependent. The helper does all the effort to complete an activity 7 Patient refused to complete or attempt activity 9 The patient did not perform the activity before the current illness or injury 88 Not attempted due to Medical conditions or safety concerns Transfers (B, C, W/C) (FIM): 3 Scootin Rollin Roll Left to Right (QC): 5 Supine to/from Sit: 4 Sit to/from Stand: 4 Sit to Lying (QC): 5 Sit to Stand (QC): 4 Chair/Bxx-vt-Ojntj Xfer(QC): 3 Bed to/from Chair: 3 Car Transfer (QC): 3 pt. needed mod assist for SPTs w/c to toilet and toilet to w/c as well as w/c to car. Weight Bearing Right Lower Extremity: Right Weight Bearing/Tolerated Left Lower Extremity: Left Weight Bearing/Tolerated Non wt bearing RU LIMB Gait Training Does the Patient Walk?: Yes Gait (FIM): 1 Distance (FIM): 1=up to 49 ft (4-5 ft) Walk 10 feet (QC): 88 Walk 50 ft with 2 Turns(QC): 88 Walk 150 ft (QC): 88 Walking 10ft/uneven surface-QC: 88 Gait Level of Assist: 2 Gait Persons Needed: 1 Gait Assistive Device: Handheld Assist dance fashion TRFs and short 3-4 step gait for TRFs only Wheelchair Training pt. unable to propel w/c at DC Stair Training Stairs (FIM): 88 Treatments Pts father states he feels pt. needs cleaned up before he leaves the hospital as he can smell an odor. Pt. was taken to bathroom, Very uncomfortable , fatiguing TRF w/c to toilet , stance for pants up and down etc and TRF back to w /c , no urination etc, pants clean, nursing applied dressing to coccyx while in stance Assessment Current Status: Regressing pt. weaker, more dependent, confused and c/o increased pain. Parents loving and supportive express that they feel completely safe and adequate in their home surroundings to manage their sons care PT Flat Finisher Goals Group Home Goals PT Flat Finisher Goals Time Frame: Feb 14, 2018 Transfers (B,C,W/C) (FIM): 6 Sit to Lying (QC): 6 Lying-Sitting on Side/Bed(QC): 6 Sit to Stand (QC): 6 Rollin Roll Left to Right (QC): 6 Chair/Vdd-yj-Opsbm Xfer(QC): 6 Car Transfer (QC): 6 Does the Patient Walk: Yes Gait (FIM): 6 Gait distance (FIM): 3=150 ft Distance: 150' Walk 10 feet (QC): 6 Walk 10ft-Uneven Surface(QC): 6 Walk 50ft with 2 Turns (QC): 6 Walk 150 ft (QC): 6 Gait Level of Assist: 6 Gait Assistive Device: Walker Mauricio Stairs (FIM): 2 # of Steps: 4 1 Step (curb) (QC): 5 4 Steps (QC): 5 12 Steps (QC): 9 Stairs Level Of Assist: 5 Picking up an Object (QC): 5 PT Plan Treatment/Plan Treatment Plan: Discontinue PT Treatment Plan: Bed Mobility, Concurrent Therapy, Education, Functional Activity Gianfranco, Functional Strength, Group Therapy, Gait, Safety, Therapeutic Exercise, Transfers Treatment Duration: Feb 14, 2018 Frequency: At least 5 of 7 days/Wk (IRF) Estimated Hrs Per Day: 1.5 hours per day Patient and/or Family Agrees t: Yes Safety Risks/Education Patient Education: Transfer Techniques, Correct Positioning, Safety Issues Teaching Recipient: Family Teaching Methods: Demonstration, Discussion Response to Teaching: Verbalize Understanding, Reinforcement Needed PT OT co Rx discussed needs at home, use of gait belt was demonstrated however family and pt. decline actual use as this is very uncomfortable to pt. Time/GCodes Time In: 1015 Time Out: 1050 Total Billed Treatment Time: 35 Total Billed Treatment 1,FA35m PT OT co Rx G Codes Necessary: BRYAN Malcolm PROJ ENGINEER Jan 16, 2018 10:57
--- NOTE | 2018-01-16 10:58 | Occupational Ther Daily Note ---
OT Current Status-Daily Note Subjective Family education with mother and step-father. Co-treat with PT. Mental Status/Objective Functional [place] Measure 0=Not Assessed/NA 4=Minimal Assistance 1=Total Assistance 5=Supervision or Setup 2=Maximal Assistance 6=Modified [place] 3=Moderate Assistance 7=Complete [place] ADL-Treatment Pt discharging today and family training scheduled. Co-treat with PT due to skilled care needs, increased pain and decreased activity tolerance. PT worked on transfers. OT worked on toileting. When parents were asked if they had hospital bed, response was no and he doesn't need it. PT went over transfer safety out and in bed. Parents then stated he has everything he needs and we have taken care of him and know what is needed and how to do it. Pt transferred from bed to w/c with mod A then transported to bathroom. Min A with toilet transfer then max A with toileting hygiene. Pt in pain and movement hurting, nrsg gave pain meds before discharge. OT/PT took pt to car and PT worked on car transfer. Pt discharged from hospital. Going home with parents. Functional [place] Measure 0=Not Assessed/NA 4=Minimal Assistance 1=Total Assistance 5=Supervision or Setup 2=Maximal Assistance 6=Modified [place] 3=Moderate Assistance 7=Complete IndependenceIRFPAI Quality Coding Scale 6 Independent with activity with or without an assistive device 5 Patient requires set up or clean up by helper. Patient completes activity by themselves 4 Supervision or touching assist (CGA). Start provide cues , steadying assist 3 The helper provides less than half the effort to complete the activity 2 The helper provides more than half the effort to complete the activity 1 Dependent. The helper does all the effort to complete an activity 7 Patient refused to complete or attempt activity 9 The patient did not perform the activity before the current illness or injury 88 Not attempted due to Medical conditions or safety concerns OT Short Term Goals Short Term Goals Eating(FIM): 6 Additional Short Term Goals: 1-Demonstrate ADL Tasks, 2-Verbalize Understanding , 3-ImproveStrength/Gianfranco 1=Demonstrate adherence to instructed precautions during ADL tasks. 2=Patient will verbalize/demonstrate understanding of assistive devices/ modifications for ADL. 3=Patient will improve strength/tolerance for activity to enable patient to perform ADL's. OT Retail Merchandising Specialist Goals Retail Merchandising Specialist Goals Time Frame: Jan 27, 2018 Eating (FIM): 6 Eating (QC): 6 Groomin Oral Hygiene (QC): 6 Bathing(FIM): 5 Shower/Bathe Self (QC): 5 Upper Body Dressing(FIM): 6 Upper Body Dressing (QC): 6 Lower Body Dressing(FIM): 5 Lower Body Dressing (QC): 5 On/Off Footwear (QC): 5 Toileting(FIM): 6 Toileting Hygiene (QC): 6 Toilet/Commode Transfer(FIM): 6 Toilet/Commode Transfer (QC): 6 Tub Transfer(FIM): 5 (or shower) Shower Transfer(FIM): 5 Additional Goals: 1-Demonstrate ADL Tasks, 2-Verbalize Understanding, 3- ImproveStrength/Gianfranco 1=Demonstrate adherence to instructed precautions during ADL tasks. 2=Patient will verbalize/demonstrate understanding of assistive devices/ modifications for ADL. 3=Patient will improve strength/tolerance for activity to enable patient to perform ADL's. OT Education/Plan Problem List/Assessment Pt would benefit from skilled OT to increase his independence in basic self car to allow him to safely return to his mother's home after discharge, with housekeeping associate goal to return to his own home. Discharge Recommendations Plan/Recommendations: Discharge/Goals Met Treatment Plan/Plan of Care Patient would benefit from OT for education, treatment and training to promote independence in ADL's, mobility, safety and/or upper extremity function for ADL' s. Plan of Care: ADL Retraining, Functional Mobility, Group Exercise/Act as Ind ( educaiton, exercise, activity tolerance, functional activities, socialization), UE Funct Exercise/Act, UE Neuromus Re-Ed/Coord, OTHER (energy conservation educaton) Treatment Duration: Jan 27, 2018 Frequency: Modified Program (IRF) Estimated Hrs Per Day: 1.5 hours per day Agreement: Yes Rehab Potential: Fair Time/GCodes Start Time: 10:15 Stop Time: 10:50 Total Time Billed (hr/min): 35 Billed Treatment Time 1 visit-FA 2 (35 min) Co-treat 35 min with PT ZELDA JOHNSON Jan 16, 2018 10:58
[2018-01-16 11:00] VITALS: BP 134/96
--- NOTE | 2018-01-16 11:54 | Therapy Team Discharge Summary ---
Therapy Discharge Summary Discharge Recommendations Date of Discharge 01/16/2018 Therapy D/C Recommendations: Home w/ Family Support Physical Therapy This patient was transferred to this unit with post acute stay due to a fall that resulted in in right hip and right humerus fx; he was post repair. Prior to fall, he was home living alone and indep. Upon admit to this unit, he required mod assist with transfers, took steps to ambulate with QC short distances. Treatment consisted of functional strength and mobility; his progress was limited due to pre existing diagnosis of metastatic bone cancer. At discharge his function remains relatively unchanged. He is to discharge home this date to his parent's home with the plan of hospice being initiated. Family training was completed this date for continued care at home. DC PT. Occupational Therapy Decreased Activ Tolerance, Decreased UE Strength, Dependent Transfers, Impaired Self-Care Skills, Restricted Funct UE ROM PT Flocculator Operator Goals Skilled Nursing Goals PT Skilled Nursing Goals Time Frame: Feb 14, 2018 Transfers (B,C,W/C) (FIM): 6 Roll Left to Right (QC): 6 Sit to Lying (QC): 6 Lying-Sitting on Side/Bed(QC): 6 Sit to Stand (QC): 6 Chair/Wyv-pk-Lipyo Xfer(QC): 6 Car Transfer (QC): 6 Does the Patient Walk: Yes Gait (FIM): 6 Gait distance (FIM): 3=150 ft Distance: 150' Walk 10 feet (QC): 6 Walk 10ft-Uneven Surface(QC): 6 Walk 50ft with 2 Turns (QC): 6 Walk 150 ft (QC): 6 Gait Level of Assist: 6 Gait Assistive Device: Walker Mauricio Stairs (FIM): 2 # of Steps: 4 1 Step (curb) (QC): 5 4 Steps (QC): 5 12 Steps (QC): 9 Stairs Level Of Assist: 5 Picking up an Object (QC): 5 No goals met OT Skilled Nursing Goals Skilled Nursing Goals Time Frame: Jan 27, 2018 Eating (FIM): 6 Eating (QC): 6 Oral Hygiene (QC): 6 Grooming(FIM): 6 Bathing(FIM): 5 Shower/Bathe Self (QC): 5 Upper Body Dressing(FIM): 6 Upper Body Dressing (QC): 6 Lower Body Dressing(FIM): 5 Lower Body Dressing (QC): 5 On/Off Footwear (QC): 5 Toileting(FIM): 6 Toileting Hygiene (QC): 6 Toilet/Commode Transfer(FIM): 6 Toilet/Commode Transfer (QC): 6 Tub Transfer(FIM): 5 (or shower) Shower Transfer(FIM): 5 Additional Goals: 1-Demonstrate ADL Tasks, 2-Verbalize Understanding, 3- ImproveStrength/Gianfranco 1=Demonstrate adherence to instructed precautions during ADL tasks. 2=Patient will verbalize/demonstrate understanding of assistive devices/ modifications for ADL. 3=Patient will improve strength/tolerance for activity to enable patient to perform ADL's. Speech Flocculator Operator Goals Flocculator Operator Goals No goals established as skilled ST not indicated. ZELDA ONEIL PT Jan 16, 2018 11:54
--- NOTE | 2018-01-19 08:58 | Therapy Team Discharge Summary ---
Therapy Discharge Summary Discharge Recommendations Date of Discharge Jan 16, 2018 at 11:00 Therapy D/C Recommendations: Home w/ Family Support, Other, See Comments ( hospice) Occupational Therapy Pt was seen for skilled OT to increase his independence in basic self care after a fall with hip fx and humeral fx, with FEDE on R LE and no weight bearing R UE. Hx cancer. On admission he needed setup with eating and grooming, min assist bathing, upper body dressing, mod assist toileting and toilet transfer and max assist lower body dressing. By discharge he could groom himself, needed min assist toilet transfer, mod assist bathing, dressing upper body, shower transfer and max assist lower body dressing and toileting. ADLs were limited by pain as well as physical restrictions. Equipment used included dressing stick, long handled sponge, quad cane, BSC. Pt discharged to Mother's home, with Hospice services. See tx plan for goals met. DC OT. Decreased Activ Tolerance, Decreased UE Strength, Dependent Transfers, Impaired Self-Care Skills, Restricted Funct UE ROM PT Web Machine Tender Goals Long-Term Goals PT Long-Term Goals Time Frame: Feb 14, 2018 Transfers (B,C,W/C) (FIM): 6 Roll Left to Right (QC): 6 Sit to Lying (QC): 6 Lying-Sitting on Side/Bed(QC): 6 Sit to Stand (QC): 6 Chair/[place] Xfer(QC): 6 Car Transfer (QC): 6 Does the Patient Walk: Yes Gait (FIM): 6 Gait distance (FIM): 3=150 ft Distance: 150' Walk 10 feet (QC): 6 Walk 10ft-Uneven Surface(QC): 6 Walk 50ft with 2 Turns (QC): 6 Walk 150 ft (QC): 6 Gait Level of Assist: 6 Gait Assistive Device: Walker Mauricio Stairs (FIM): 2 # of Steps: 4 1 Step (curb) (QC): 5 4 Steps (QC): 5 12 Steps (QC): 9 Stairs Level Of Assist: 5 Picking up an Object (QC): 5 OT Long-Term Goals Web Machine Tender Goals Time Frame: Jan 27, 2018 Eating (FIM): 6 (not met) Eating (QC): 6 (not met) Oral Hygiene (QC): 6 (met) Grooming(FIM): 6 (met) Bathing(FIM): 5 (not met) Shower/Bathe Self (QC): 5 (not met) Upper Body Dressing(FIM): 6 (not met) Upper Body Dressing (QC): 6 (not met) Lower Body Dressing(FIM): 5 (not met) Lower Body Dressing (QC): 5 (not met) On/Off Footwear (QC): 5 (not met) Toileting(FIM): 6 (not met) Toileting Hygiene (QC): 6 (not met) Toilet/Commode Transfer(FIM): 6 (not met) Toilet/Commode Transfer (QC): 6 (not met) Tub Transfer(FIM): 5 (or shower, not met) Shower Transfer(FIM): 5 (not met) Additional Goals: 1-Demonstrate ADL Tasks, 2-Verbalize Understanding, 3- ImproveStrength/Gianfranco 1=Demonstrate adherence to instructed precautions during ADL tasks. 2=Patient will verbalize/demonstrate understanding of assistive devices/ modifications for ADL. 3=Patient will improve strength/tolerance for activity to enable patient to perform ADL's. Speech Web Machine Tender Goals Long-Term Goals No goals established as skilled ST not indicated. ROSSI KAUFMAN OT Jan 19, 2018 08:58
== END 2018-01-16 11:00 | disposition hospice, home (50) | DRG 559 ==
PROVIDERS: ADMIT Physical Medicine & Rehabilitation; ATTEND Physical Medicine & Rehabilitation
DX: M84.451D Pathological fracture, right femur, subsequent encounter for fracture with routine healing (principal); M84.421D Pathological fracture, right humerus, subsequent encounter for fracture with routine healing; C79.51 Secondary malignant neoplasm of bone; C78.01 Secondary malignant neoplasm of right lung; C78.02 Secondary malignant neoplasm of left lung; B37.0 Candidal stomatitis; E43 Unspecified severe protein-calorie malnutrition; D61.818 Other pancytopenia; E87.1 Hypo-osmolality and hyponatremia; I10 Essential (primary) hypertension; I25.10 Atherosclerotic heart disease of native coronary artery without angina pectoris; E78.5 Hyperlipidemia, unspecified; R00.0 Tachycardia, unspecified; Z87.891 Personal history of nicotine dependence; J44.9 Chronic obstructive pulmonary disease, unspecified; I25.2 Old myocardial infarction; Z91.81 History of falling
CPT/HCPCS: 36415; 73523; 80053; 85025